=== PATIENT | female | born 1965 | race Caucasian/White ===

== ENCOUNTER 2023-01-14 13:52 | Outpatient (OUT) | payer MEDICARE, SELFPAY ==
--- NOTE | 2023-01-14 14:01 | XR_ITS ---
The [address] [address] Patient Name: TIERRA MCCLOUD MRN: [id number] date: 1965 Sex: F Assigned Patient Location: [facility] Current Patient Location: [facility] Accession/Order Number: [id number] Exam Date: 01/14/2023 14:16 Report Date: 01/14/2023 14:46 At the request of: MICHELLE EDUARDO Procedure: XR chest 2V EXAM: XR chest 2V HISTORY: Abnormal Chest XRAY R93.89 COMPARISON: None. TECHNIQUE: PA and lateral views of the chest. FINDINGS: The cardiomediastinal silhouette is normal. No focal consolidation is identified. There is no pneumothorax. No pleural effusion is noted. The osseous structures are intact. XR/XR chest 2V IMPRESSION: No acute cardiopulmonary process. Electronically authenticated by: HIGINIO MELCHOR Date: 01/14/2023 14:46
== END 2023-01-14 13:53 | disposition home or self-care (01) ==
PROVIDERS: Visit Provider Internal Medicine Sleep Medicine
DX: R93.89 Abnormal findings on diagnostic imaging of other specified body structures (principal)
CPT/HCPCS: 71046

== ENCOUNTER 2023-09-28 14:09 | Outpatient (OUT) | payer MEDICARE, SELFPAY ==
[2023-09-28 14:27] LABS: Hematocrit 39.7 % (36.0-48.0); Hemoglobin 12.9 g/dL (12.0-16.0); Mean Corpuscular HGB Conc 32.5 g/dL (29.9-35.2); Mean Corpuscular Hemoglobin 31.9 pg (26.7-34.0); Mean Corpuscular Volume 98.3 fL (81.0-99.0); Mean Platelet Volume 10.6 fL (9.5-13.5); Platelet Count 249 10^3/uL (150-450); Red Blood Count 4.04 10^6/uL (4.20-5.40); Red Cell Distribution Width 13.2 % (11.0-15.0); White Blood Count 7.9 10^3/uL (4.0-11.0)
[2023-09-28 14:29] LABS: Bilirubin Urine NEGATIVE (NEGATIVE); Blood Urine NEGATIVE (NEGATIVE); Clarity Urine CLEAR (CLEAR); Color Urine LT. YELLOW (YELLOW); Glucose Urine UA NEGATIVE (NEGATIVE); Ketones Urine NEGATIVE (NEGATIVE); Leukocyte Esterase Urine NEGATIVE (NEGATIVE); Nitrite Urine NEGATIVE (NEGATIVE); Protein Urine NEGATIVE (NEG/TRACE); Specific Gravity Urine 1.015 (1.005-1.025); Urobilinogen Urine 0.2 EU/dL (0.2-1.0)
[2023-09-28 14:35] LABS: Bacteria Urine NONE SEEN #/HPF (NONE SEEN); Cast Seen? NONE SEEN #/LPF (NONE SEEN); Crystals Seen? None Seen #/HPF (None Seen); Mucus Urine NONE SEEN (NONE SEEN); RBC Urine NONE SEEN #/HPF (0-2); Squamous Epithelial Cell Urine RARE #/LPF (NONE/RARE); WBC Urine NONE SEEN #/HPF (NONE SEEN)
[2023-09-28 14:36] LABS: Creatinine Urine Random 79.58 mg/dL (20.00-300.00); Total Protein Urine Random 16.3 mg/dL (<=11.9)
[2023-09-28 14:48] LABS: Albumin Level 3.5 g/dL (3.4-5.0); Anion Gap 12.3; BUN Creatinine Ratio 18.3; Calcium 8.6 mg/dL (8.5-10.1); Carbon Dioxide 26.1 mmol/L (21.0-32.0); Chloride 106 mmol/L (98-107); Estimated GFR (African America 31 (>=60); Estimated GFR (Non-African Ame 26 (>=60); Glucose 103 mg/dL (74-106); Magnesium 1.5 mg/dL (1.8-2.4); Phosphorus 3.4 mg/dL (2.6-4.7); Potassium 4.4 mmol/L (3.5-5.1); Sodium 140 mmol/L (136-145)
[2023-09-29 10:10] LABS: PTH, Intact 85 pg/mL (15-65)
== END 2023-09-28 14:10 | disposition home or self-care (01) ==
LOC: LAB 14:11
PROVIDERS: Visit Provider Internal Medicine
DX: I12.9 Hypertensive chronic kidney disease with stage 1 through stage 4 chronic kidney disease, or unspecified chronic kidney disease (principal); N18.4 Chronic kidney disease, stage 4 (severe); E55.9 Vitamin D deficiency, unspecified; N25.81 Secondary hyperparathyroidism of renal origin; M10.9 Gout, unspecified
CPT/HCPCS: 36415; 80069; 81001; 82306; 82570; 83735; 83970; 84156; 84550; 85027

== ENCOUNTER 2024-02-11 12:29 | Outpatient (OUT) | payer MEDICARE, SELFPAY ==
[2024-02-11 12:51] LABS: Hematocrit 40.2 % (36.0-48.0); Hemoglobin 13.6 g/dL (12.0-16.0); Mean Corpuscular HGB Conc 33.8 g/dL (29.9-35.2); Mean Corpuscular Hemoglobin 32.2 pg (26.7-34.0); Mean Platelet Volume 10.5 fL (9.5-13.5); Platelet Count 249 10^3/uL (150-450); Red Blood Count 4.23 10^6/uL (4.20-5.40); Red Cell Distribution Width 13.5 % (11.0-15.0); White Blood Count 8.3 10^3/uL (4.0-11.0)
[2024-02-11 12:53] LABS: Bilirubin Urine SMALL (NEGATIVE); Blood Urine TRACE-I (NEGATIVE); Clarity Urine SL CLOUDY (CLEAR); Color Urine YELLOW (YELLOW); Glucose Urine UA NEGATIVE (NEGATIVE); Ketones Urine NEGATIVE (NEGATIVE); Leukocyte Esterase Urine NEGATIVE (NEGATIVE); Nitrite Urine NEGATIVE (NEGATIVE); Protein Urine NEGATIVE (NEG/TRACE); Specific Gravity Urine 1.025 (1.005-1.025)
[2024-02-11 13:01] LABS: Bacteria Urine MODERATE #/HPF (NONE SEEN); Cast Seen? SEEN #/LPF (NONE SEEN); Crystals Seen? None Seen #/HPF (None Seen); Fine Granular Casts Urine RARE; Hyaline Casts Urine FEW; Mucus Urine SMALL (NONE SEEN); Squamous Epithelial Cell Urine MODERATE #/LPF (NONE/RARE); Transitional Epi Cells Urine RARE #/LPF (NONE SEEN)
[2024-02-11 13:17] LABS: Creatinine Urine Random 265.89 mg/dL (20.00-300.00); Protein Creatinine Ratio Urine 0.14; Total Protein Urine Random 37.3 mg/dL (<=11.9)
[2024-02-11 15:19] LABS: Albumin Level 3.6 g/dL (3.4-5.0); Anion Gap 12.7; BUN Creatinine Ratio 15.6; Calcium 9.1 mg/dL (8.5-10.1); Carbon Dioxide 25.5 mmol/L (21.0-32.0); Chloride 103 mmol/L (98-107); Estimated GFR (African America 25 (>=60); Estimated GFR (Non-African Ame 20 (>=60); Glucose 100 mg/dL (74-106); Magnesium 1.5 mg/dL (1.8-2.4); Phosphorus 3.3 mg/dL (2.6-4.7); Potassium 4.2 mmol/L (3.5-5.1); Sodium 137 mmol/L (136-145); Uric Acid 6.4 mg/dL (2.6-6.0)
[2024-02-12 10:11] LABS: PTH, Intact 151 pg/mL (15-65)
== END 2024-02-11 12:30 | disposition home or self-care (01) ==
LOC: LAB 12:31
PROVIDERS: Visit Provider Internal Medicine
DX: I12.9 Hypertensive chronic kidney disease with stage 1 through stage 4 chronic kidney disease, or unspecified chronic kidney disease (principal); N18.4 Chronic kidney disease, stage 4 (severe); E55.9 Vitamin D deficiency, unspecified; M10.9 Gout, unspecified; N25.81 Secondary hyperparathyroidism of renal origin
CPT/HCPCS: 36415; 80069; 81001; 82306; 82570; 83735; 83970; 84156; 84550; 85027

== ENCOUNTER 2024-03-03 14:49 | Outpatient (OUT) | payer MEDICARE, SELFPAY ==
--- NOTE | 2024-03-03 15:00 | XR_ITS ---
The [address] [address] Patient Name: TIERRA MCCLOUD MRN: [id number] date: 1965 Sex: F Assigned Patient Location: [facility] Current Patient Location: [facility] Accession/Order Number: [id number] Exam Date: 03/03/2024 15:01 Report Date: 03/03/2024 15:26 At the request of: MICHELLE EDUARDO Procedure: XR chest 2V EXAM: XR chest 2V HISTORY: Chronic Obstructive Pulmonary Disease J44.9 COMPARISON: 01/14/2023 TECHNIQUE: Upright PA and lateral chest x-ray FINDINGS: The heart is not enlarged and the vasculature is not distended. A small amount of pleural and parenchymal scarring is seen at the left lung base, which is essentially unchanged. No acute infiltrate, effusion or pneumothorax is identified. Degenerative changes are seen in the spine. Surgical clips are seen in the upper abdomen. XR/XR chest 2V IMPRESSION: No acute infiltrate or evidence of cardiac decompensation. Mild chronic changes are noted. The overall appearance is unchanged. Electronically authenticated by: JOANA CLAY Date: 03/03/2024 15:26
== END 2024-03-03 14:50 | disposition home or self-care (01) ==
LOC: RAD 14:50
PROVIDERS: Visit Provider Internal Medicine Sleep Medicine
DX: J44.9 Chronic obstructive pulmonary disease, unspecified (principal)
CPT/HCPCS: 71046

== ENCOUNTER 2024-08-23 10:26 | Outpatient (OUT) | payer MEDICARE, SELFPAY ==
--- OUTSIDE RECORDS SUMMARY | 2024-08-23 10:35 | XMS_ITS | CCD ---
Author Organization [facility] Care Team Providers Care Wrapper Operator Name Role Phone Latosha Bryan Unavailable AlejandroCarissa Unavailable Carito, Sohail Unavailable CARITO, SOHAIL Attending Unavailable MISC, DR QUIROGA Primary Care Unavailable CARITO, SOHAIL Admitting Unavailable CARITO, SOHAIL Consulting Unavailable MISC, DR QUIROGA Admitting Unavailable MISC, DR QUIROGA Primary Care Unavailable MISC, DR QUIROGA Consulting Unavailable MISC, DR QUIROGA Attending Unavailable CARITO, SOHAIL Consulting Unavailable CARITO, SOHAIL Attending Unavailable SHAYY COWAN Primary Care Unavailable CARITO, SOHAIL Admitting Unavailable Khari, MSN, BUS PERSON-OCEANOGRAPHY TEACHER Yolanda Whitehead. Attending Quoc Lucia, MSN, BUS PERSON-OCEANOGRAPHY TEACHER Yolanda Whitehead. Attending Quoc Lucia, MSN, BUS PERSON-OCEANOGRAPHY TEACHER Yolanda Whitehead. Attending Quoc Lucia, MSN, BUS PERSON-OCEANOGRAPHY TEACHER Yolanda L. Attending Quoc Lucia, MSN, BUS PERSON-OCEANOGRAPHY TEACHER Yolanda Whitehead. Attending Quoc Lucia, MSN, BUS PERSON-OCEANOGRAPHY TEACHER Yolanda Whitehead. Attending Quoc Lucia, MSN, BUS PERSON-OCEANOGRAPHY TEACHER Yolanda L. Attending Quoc Lucia, MSN, BUS PERSON-OCEANOGRAPHY TEACHER Yolanda Whitehead. Attending Quoc Lucia, MSN, BUS PERSON-OCEANOGRAPHY TEACHER Yolanda Whitehead. Attending U chetan Allergies Allergy Classification Reported Allergen(s) Allergy Type Date of Onset Reaction(s) Facility (11 sources) Albuterol Drug Allergy 4 Unknown, Unknown Reaction [facility] (12 sources) gabapentin; Translations: [gabapentin] Drug Allergy 4 Unknown, Swelling of Lip/Tongue/Thr oat [facility] (9 sources) NSAIDs; Translations: [NSAIDs] Propensity to adverse reactions Unknown [facility] (7 sources) Fluarix Drug allergy Unknown [facility] Other (3 sources) NSAIDS (Non-Steroidal Anti-Inflamma Allergy to substance Unknown Reaction [facility] (1 source) Albuterol; Translations: [Ventolin HFA] Drug Allergy [facility] (1 source) flu vaccines; Translations: [flu vaccines] Propensity to adverse reactions (disorder) [facility] Medications Current Medications Medication Drug Class(es) Dates Sig (Normalized) Sig (Original) acetaminophen 325 mg / oxyCODONE hydrochloride 5 mg oral tablet (2 sources) Opioid Agonist Start: 02-15-2024 take 1 tablet by mouth every six hours Oxycodone-Acetami nophen Active 1 TAB PO Every 6 hours February 15, 2024 12:00am albuterol 0.83 mg/ml inhalation solution (20 sources) beta2-Adrenergic Agonist Start: 09-29-2023 Albuterol Sulfate Active 2.5 MG INHALATION every 6 to 8 hours September 29, 2023 12:00am Start: 09-29-2023 take 1 puff(s) by in halation every six hours Albuterol Sulfate (Ventolin Hfa) 90 mcg/actuation HFA aerosol inhaler Active 2 PUFF INHALATION Every 6 hours September 29, 2023 12:00am Albuterol Sulfat e (2.5 MG/3ML) 0.083% INHALE 1 VIAL VIA NEBULIZER EVERY 4 HOURS Inhalation Active take 2 puff(s) by mo ut four times daily as needed Ventolin HFA 108 (90 Base) MCG/ACT INHALE 2 PUFFS BY MOUTH 4 TIMES A DAY NEEDED Inhalation for 25 Active allopurinol 300 mg oral tablet (15 sources) Xanthine Oxidase Inhibitor Start: 09-29-2023 End: 09-29-2023 take 300 mg by mouth once daily Allopurinol Active 300 MG PO Daily September 29, 2023 3:30pm Allopurinol 300 MG TAKE 1 TABLET BY MOUTH EVERY DAY FOR 90 DAYS for 90 Active amLODIPine 10 mg oral tablet (11 sources) Dihydropyridine Calcium Channel Subhash Start: 09-29-2023 take 1 tablet by mouth once daily Amlodipine Active 1 TAB PO Daily September 29, 2023 12:00am FreeTextSig: TAKE 1 TABLET BY MOUTH EVERY DAY Oral; Note: Source Status: Taking; Provider: Carito Sauceda ( ) take 1 tablet by mouth once noemy y amLODIPine Besylate 10 MG TAKE 1 TABLET BY MOUTH EVERY DAY Oral Active apixaban 5 mg oral tablet (4 sources) Factor Xa Inhibitor Start: 09-29-2023 take 1 tablet by mouth twice daily Apixaban Active 1 TAB PO Twice daily September 29, 2023 12:00am FreeTextSi tablet Orally Twice a day; Note: Source Status: Taking; Provider: Carito Sauceda ( ) take 1 tablet by mouth every twe lve hours Eliquis 5 MG 1 tablet Orally Twice a day Active ascorbic acid 500 mg oral capsule (3 sources) Vitamin C Start: 09-29-2023 Ascorbic Acid (Vitamin C) Active CAP PO September 29, 2023 12:00am FreeTextSig: Orally; Note: Source Status: Taking; Provider: Carito Sauceda ( ) aspirin 81 mg chewable tablet (11 sources) Platelet Aggregation Inhibitor, Nonsteroidal Anti-inflammatory Drug Start: 09-29-2023 take 81 mg by mouth once daily Aspirin Active 81 MG PO Daily September 29, 2023 12:00am Start: 08-05-2016 take 1 tablet by sagrario th every twenty-four hours Aspirin 81 MG 1 tablet Orally Once a day Jul, Active 120 actuat budesonide 0.16 mg/actuat / formoterol fumarate 0.0045 mg/actuat metered dose inhaler (8 sources) Corticosteroid, beta2-Adrenergic Agonist Start: 03-07-2024 End: 03-07-2024 take 1 puff(s) by inhalation twice daily Budesonide-Formoterol (Symbicort) 160-4.5 mcg/actuation HFA aerosol inhaler Active 2 PUFF INHALATION Twice daily 07 28March 07, 2024 2:07pm take 2 puff(s) by inhalation twi ce daily Symbicort 160-4.5 MCG/ACT 2 puffs Inhalation Twice a day Active 24 hr buPROPion hydrochloride 300 mg extended release oral tablet (6 sources) Aminoketone Start: 03-07-2024 take 300 mg by mouth once daily Bupropion Hcl Active 300 MG PO Daily March 07, 2024 1:17pm Start: 02-15-2024 End: 03-07-2024 Bupropion Hcl Discontinued M G PO February 15, 2024 12:00am March 07, 2024 1:19pm Start: 02-15-2024 Bupropion Hcl Active MG PO February 15, 2024 12:00am Start: 09-29-2023 End: 02-15-2024 take 1 tablet by mouth once daily in the morning Bupropion Hcl (Wellbutrin Xl) 150 mg tablet extended release 24 hr Discontinued 150 MG PO Every morning September 29, 2023 12:00am February 15, 2024 3:23pm cholecalciferol 0.05 mg oral capsule (3 sources) Vitamin D Start: 09-29-2023 take 1 capsule by mouth once daily Cholecalciferol (Vitamin D3) Active 1 CAP PO Daily September 29, 2023 12:00am FreeTextSi capsule Orally Once a day; Note: Source Status: Taking; Provider: Carito Sauceda ( ) citalopram 20 mg oral tablet (5 sources) Serotonin Reuptake Inhibitor take 1 tablet by mouth every twenty-four hours Citalopram Hydrobromide 20 MG 1 Tablet Oral Daily for 30 Active DULoxetine 30 mg delayed release oral capsule (2 sources) Serotonin and Norepinephrine Reuptake Inhibitor take 1 capsule by mouth every twenty-four hours DULoxetine HCl 30 MG 1 capsule Orally Once a day Active hydroCHLOROthiazide 25 mg / triamterene 37.5 mg oral tablet (11 sources) Potassium-sparing Diuretic, Thiazide Diuretic Start: 09-29-2023 take 1 tablet by mouth once daily Triamterene-Hydroch lorothiazid Active 1 TAB PO Daily September 29, 2023 12:00am Start: 08-05-2016 take 1 tablet by sagrario th every twenty-four hours Triamterene-HCTZ 37.5-25 MG 1 tablet in the morning Orally Once a day Jul, Active lisinopril 5 mg oral tablet (12 sources) Angiotensin Converting Enzyme Inhibitor Start: 09-29-2023 End: 03-07-2024 take 1 tablet by mouth once daily for hypertension Lisinopril Active 5 MG PO Daily March 07, 2024 1:17pm FreeTextSig: TAKE 1 TABLET BY MOUTH EVERY DAY FOR HYPERTENSION Oral; Note: Source Status: Taking; Provider: Carito Sauceda ( ) take 1 tablet by sagrario th once daily for hypertension Lisinopril 5 MG TAKE 1 TABLET BY MOUTH EVERY DAY FOR HYPERTENSION Oral Active loratadine 10 mg oral tablet (11 sources) Start: 09-29-2023 take 1 tablet by mouth once daily Loratadine Active 1 TAB PO Daily September 29, 2023 12:00am FreeTextSi tablet Orally Once a day; Note: Source Status: Taking; Provider: Carito Sauceda ( ) take 1 tablet by mouth once noemy y Loratadine 10 MG 1 tablet Orally Once a day Active magnesium oxide 400 mg oral tablet (2 sources) Start: 02-15-2024 take 400 mg by mouth once daily Magnesium Oxide Active 400 MG PO Daily February 15, 2024 12:00am meclizine hydrochloride 25 mg oral tablet (12 sources) Antiemetic Start: 09-29-2023 End: 03-07-2024 take 25 mg by mouth twice daily Meclizine Active 25 MG PO Twice daily March 07, 2024 1:18pm take 1 tablet by sagrario th twice daily for dizziness Meclizine HCl 25 MG TAKE 1 TABLET BY MOUTH TWICE A DAY FOR DIZZINESS Oral for 30 Active montelukast 10 mg oral tablet (11 sources) Leukotriene Receptor Antagonist Start: 09-29-2023 take 1 tablet by mouth once daily Montelukast Active 1 TAB PO Daily September 29, 2023 12:00am FreeTextSi tablet Orally Once a day; Note: Source Status: Taking; Provider: Carito Sauceda ( ) take 1 tablet by sagrario th every twenty-four hours Montelukast Sodium 10 MG 1 tablet Orally Once a day Active omeprazole 40 mg delayed release oral capsule (13 sources) Proton Pump Inhibitor Start: 02-15-2024 take 40 mg by mouth once daily Omeprazole Active 40 MG PO Daily February 15, 2024 3:24pm Start: 09-29-2023 End: 02-15-2024 take 1 capsule by mouth twice daily at lunch Omeprazole Discontinued MG PO September 29, 2023 12:00am February 15, 2024 3:24pm FreeTextSi capsule Oral TWICE A DAY; Note: Source Status: Taking; Provider: CAMRYN LUCAS take 1 capsule by mo [facility] every twelve hours Omeprazole 40 mg 1 capsule Oral TWICE A DAY Active ondansetron 4 mg oral tablet (11 sources) Serotonin-3 Receptor Antagonist Start: 09-29-2023 take 4 mg by mouth every six hours Ondansetron Hcl Active 4 MG PO Every 6 hours September 29, 2023 12:00am take 1 tablet by sagrario every six hours as needed for nausea Ondansetron HCl 4 MG TAKE 1 TABLET BY MO [facility] EVERY 6 HOURS NEEDED FOR NAUSEA/VOMITING Oral for 6 Active pravastatin sodium 10 mg oral tablet (2 sources) HMG-CoA Reductase Inhibitor Start: 02-15-2024 take 10 mg by mouth once daily Pravastatin Active 10 MG PO Daily February 15, 2024 12:00am rOPINIRole 1 mg oral tablet (13 sources) Nonergot Dopamine Agonist Start: 09-29-2023 End: 02-15-2024 take 1 mg by mouth once daily at bedtime Ropinirole Active 1 MG PO Daily at bedtime February 15, 2024 3:24pm take 1 tablet by sagrario once daily at bedtime rOPINIRole HCl 1 MG TAKE 1 TABLET BY SAGRARIO TH AT BEDTIME FOR RESTLESS LEGS Orally Once a day Active Super B Complex (5 sources) Super B Complex Active theophylline 300 mg extended release oral tablet (5 sources) Methylxanthine take 1 tablet by mouth twice daily Theophylline ER 300 MG TAKE 1 TABLET BY MOUTH 2 TIMES A DAY Oral Active Trelegy Ellipta 100-62.5-25 MCG/INH (2 sources) Start: take 1 puff(s) by inhalation once daily Trelegy Ellipta 100-62.5-25 MCG/INH 1 puff Inhalation Once a day for 30 days Feb, Active Vitamin C 500 MG (8 sources) Vitamin C 500 MG Orally Active Vitamin D 2000 UNIT (8 sources) take 1 capsule by mouth once daily Vitamin D 2000 UNIT 1 capsule Orally Once a day Active Completed/Discontinued Medications Medication Drug Class(es) Dates Sig (Normalized) Sig (Original) Fluticasone-Umecli din-Vilanter (3 sources) Anticholinergic, Corticosteroid, beta2-Adrenergic Agonist Start: 09-29-2023 End: 03-07-2024 Fluticasone-Umeclidi n-Vilanter (Trelegy Ellipta) 100-62.5-25 mcg blister with device Discontinued 1 INH INHALATION Daily September 29, 2023 12:00am March 07, 2024 2:03pm Start: 09-29-2023 Fluticasone-Um eclidin-Vilanter (Trelegy Ellipta) 100-62.5-25 mcg blister with device Active 1 INH INHALATION Daily September 29, 2023 12:00am hyaluronate (20 sources) Start: 02-11-2017 Supartz Jan Start: 02-04-2017 Supartz Jan Start: 01-28-2017 Supartz Jan Start: 01-21-2017 Supartz Dec SUPARTZ FX SODIUM HYALURONATE (12 sources) Start: 01-07-2017 SUPARTZ FX SOD IUM HYALURONATE Dec, 25 Triamcinolone (12 sources) Corticosteroid Start: 08-05-2016 Kenalog -40 mg Jul, 3 mL Problems Active Problems Problem Classification Problem Date Documented Date Episodic/Chronic Anxiety disorders (7 sources) Anxiety; Translations: [Anxiety disorder, unspecified] Onset: 1 Resolved: 1 Chronic Asthma (2 sources) Asthma-chronic obstructive pulmonary disease overlap syndrome; Translations: [Asthma-chronic obstructive pulmonary disease overlap syndrome] 03-03-2024 Chronic Chronic kidney disease (20 sources) Chronic kidney disease stage 3; Translations: [Chronic kidney disease, stage 3 (moderate)] Onset: 3 Chronic Chronic kidney disease (5 sources) Chronic kidney disease; Translations: [Chronic kidney disease, stage III (moderate)] Onset: 2 Resolved: 2 Chronic obstructive pulmonary disease and bronchiectasis (16 sources) Chronic obstructive lung disease; Translations: [Chronic obstructive pulmonary disease, unspecified] Onset: 1 Resolved: 2 Chronic Diabetes mellitus without complication (5 sources) Hyperglycemia, unspecified; Translations: [HYPERGLYCEMIA UNSPECIFIED] Onset: 3 Episodic Gout and other crystal arthropathies (14 sources) Acute gout; Translations: [Gout, unspecified] Onset: 3 Chronic Hypertension with complications and secondary hypertension (20 sources) Hypertensive renal disease; Translations: [Hypertensive chronic kidney disease with stage 1 through stage 4 chronic kidney disease, or unspecified chronic kidney disease] Onset: 2 Resolved: 2 Chronic Nutritional deficiencies (19 sources) Vitamin D deficiency; Translations: [Vitamin D deficiency, unspecified] Onset: 2 Resolved: 2 Chronic Osteoarthritis (6 sources) Osteoarthritis of knee; Translations: [Unilateral primary osteoarthritis, right knee] Chronic Other diseases of kidney and ureters (11 sources) Secondary hyperparathyroidism; Translations: [Secondary hyperparathyroidism of renal origin] 09-29-2023 Chronic Other diseases of kidney and ureters (8 sources) Secondary hyperparathyroidism of renal origin; Translations: [Secondary hyperparathyroidism (of renal origin)] Onset: 2 Resolved: 2 Chronic Other non-traumatic joint disorders (6 sources) Arthralgia of the lower leg; Translations: [Pain in right knee] Episodic Other nutritional; endocrine; and metabolic disorders (1 source) Morbid (severe) obesity due to excess calories; Translations: [MORBID SEVERE OBES D/T EXCESS ALFREDA] Onset: 3 Chronic Other nutritional; endocrine; and metabolic disorders (1 source) Body mass index (BMI) 40.0-44.9, adult; Translations: [BODY MASS INDEX BMI 40.0-44.9 ADULT] Onset: 3 Chronic Other nutritional; endocrine; and metabolic disorders (2 sources) Hypomagnesemia; Translations: [Hypomagnesemia] 02-15-2024 Chronic Other nutritional; endocrine; and metabolic disorders (2 sources) Hypomagnesemia; Translations: [Disorders of magnesium metabolism] 02-15-2024 Chronic Other screening for suspected conditions (not mental disorders or infectious disease) (10 sources) Imaging of thorax abnormal; Translations: [Abnormal findings on diagnostic imaging of other specified body structures] Onset: 1 Resolved: 2 Chronic Other screening for suspected conditions (not mental disorders or infectious disease) (1 source) Encounter for screening for diabetes mellitus; Translations: [ENCOUNTER FOR SCREENING FOR DM] Onset: 3 Episodic Substance-related disorders (13 sources) Smoker; Translations: [Nicotine dependence, unspecified, uncomplicated] Onset: 2 Resolved: 2 Chronic Unclassified (1 source) CHRN KIDNEY DISEASE STG 3 UNSP; Translations: [CHRN KIDNEY DISEASE STG 3 UNSP] Onset: 3 Past or Other Problems Problem Classification Problem Date Documented Date Episodic/Chronic Other nutritional; endocrine; and metabolic disorders (2 sources) Hyperuricemia without signs of inflammatory arthritis and tophaceous disease; Translations: [HU W/O SIGNS IA AND TOPHACEOUS DZ] Onset: 10-10-2021 Resolved: 10-10-2021 Episodic Screening and history of mental health and substance abuse codes (1 source) Personal history of nicotine dependence; Translations: [Personal history of tobacco use Z87.891] Onset: 03-28-2021 Resolved: 03-28-2021 Episodic Results Test Name Value Interpretation Reference Range Facil ity Ambulatory Visit Summaryon 1 08-08-2023 Ambulatory Visit Summary Ambulatory Visit Summary IMANI MCCLOUD :1965 Visit Date:06/07/2024 Ambulatory Visit Instructions Your Diagnosis Fibromyalgia Benign hypertension with chronic kidney disease, stage IV Chronic kidney disease (CKD), stage IV (severe) Hyperlipidemia Class 2 obesity due to excess calories in adult BMI 38.0-38.9,adult Lipid screening Medication management Immunization due Your Care Team Attending Physician - Khari MISHRA, CINDY-Yolanda RODRIGUEZ Primary Care Physician - Khari MISHRA, CINDY-Yolanda RODRIGUEZ This Is Your Medications List Misc Prescription (Nebulizer tubing and mouthpiece) acetaminophen-oxycod one (Percocet 5 mg-325 mg oral tablet) albuterol (Albuterol (Eqv-Proventil HFA) 90 mcg/inh inhalation aerosol) Contact prescribing physician if questions or concerns APAP/butalbital/caff eine (APAP/butalbital/caf feine 325 mg-50 mg-40 mg oral capsule) Misc Prescription (Permanent Handicap Paking Placcard (5 year)) albuterol (albuterol 0.083% Inh Nikki 3 mL) allopurinol (allopurinol 300 mg Tab) apixaban (Eliquis 5 mg oral tablet) aspirin buPROPion (buPROPion 300 mg/24 hours ER Tab) budesonide-formotero l (Symbicort 160/4.5 inhalation aerosol with adapter) cetirizine (cetirizine 10 mg oral capsule) cholecalciferol (cholecalciferol 2000 intl units oral tablet (Vitamin D3)) hydrochlorothiazide- triamterene (hydrochlorothiazide -triamterene 25 mg-37.5 mg Tab) lisinopril (lisinopril 5 mg Tab) magnesium oxide (magnesium oxide 400 mg Tab) meclizine (meclizine 25 mg Tab) omeprazole (omeprazole 40 mg Cap-DR) ondansetron (ondansetron 4 mg Tab) pravastatin (pravastatin 10 mg Tab) promethazine (promethazine 25 mg Tab) ropinirole (ropinirole 1 mg Tab) theophylline (theophylline 300 mg ER Tab) Procedures Performed right ultrasound guided core breast biopsy (2017), Cardiac catheterisation (05/2014), Endometrial ablation (2006), section (1991), Laparoscopic cholecystectomy (1986). Discharge Vitals Temperature (Temporal Artery) 36.3 ???C Heart Rate (Peripheral) 80 Respiratory Rate 18 Blood Pressure 128/88 Height 163 cm Height 64 in Weight 102.6 kg Weight 226.194 lb BMI 38.62 What to do next Scheduled Follow-Up Appointments Thursday 1:00 PM EDT With: Khari MISHRA, CINDY-Yolanda RODRIGUEZ Where: [address] [address]- You Need to Schedule the Following Appointments Follow Up with nurse visit When: Within 1 week Comments: fasting labs Where: Follow Up with Khari MISHRA, CINDY-Yolanda RODRIGUEZ When: In 3 months Comments: chronic care Where: [address] [place] [id number] You Need to Complete the Following CBC w/ Auto Diff, Blood, Routine collect, 06/07/24, Order for future visit, Lab Collect, Fibromyalgia Benign hypertension with chronic kidney disease, stage IV Chronic kidney disease (CKD), stage IV (severe) Hyperlipidemia Class 2 obesity due to excess calories... Comprehensive Metabolic Panel, Blood, Routine collect, 06/07/24, Order for future visit, Lab Collect, Fibromyalgia Benign hypertension with chronic kidney disease, stage IV Chronic kidney disease (CKD), stage IV (severe) Hyperlipidemia Class 2 obesity due to excess calories... Lipid Panel, Blood, Routine collect, 06/07/24, Order for future visit, Lab Collect, Fibromyalgia Benign hypertension with chronic kidney disease, stage IV Chronic kidney disease (CKD), stage IV (severe) Hyperlipidemia Class 2 obesity due to excess calories... Medications What How Much When Instructions Changed acetaminophen-oxycod one (Percocet 5 mg-325 mg oral tablet) 1 Tablets By Mouth Every 6 hours Duration: 30 Days DX M79.7 Fibromyalgia Pickup at [facility]/pharmacy #[id number] Unchanged albuterol (Albuterol (Eqv-Proventil HFA) 90 mcg/ inh inhalation aerosol) 2 Puffs Inhalation Every 4 hours Pickup at [facility]/pharmacy #[id number] Unchanged Misc Prescription (Nebulizer tubing and mouthpiece) See instructions use as directed. Dx: COPD Printed Prescription Unchanged albuterol (albuterol 0.083% Inh Nikki 3 mL) 3 Milliliter Nebulized inhalation (aerosol) Every 6 hours Contact prescribing physician if questions or concerns Unchanged allopurinol (allopurinol 300 mg Tab) 1 Tablets By Mouth Every day per specialist Contact prescribing physician if questions or concerns Unchanged APAP/ butalbital/ caffeine (APAP/ butalbital/ caffeine 325 mg-50 mg-40 mg oral capsule) 2 Capsules By Mouth 4 times a day as needed for as needed for headache Contact prescribing physician if questions or concerns Unchanged apixaban (Eliquis 5 mg oral tablet) 1 Tablets By Mouth 2 times a day Contact prescribing physician if questions or concerns Unchanged aspirin 81 Milligram By Mouth Every day Contact prescribing physician if questions or concerns Unchanged budesonide-formotero l (Symbicort 160/ 4.5 inhalation aerosol (more content not included)... Normal [facility] Family Medicine Office/Clini c Noteon 06-07-2024 Family Medicine Office/Clinic Note Family Medicine Office/Clinic Note Chief Complaint The patient reports fatigue, pain management concerns, and due medication and blood work evaluations. HPI Staff Patient is here for follow up on hypertension. CKD How often are you checking your blood pressure? Not checking What are your average readings? Are you compliant with your diet? yes Do you exercise? no Are you compliant with your medications? yes Are you having difficulty affording your medications? no Do you have side effects from the medication? no Do you have any of the following symptoms? Chest Pain? no Palpitations? no LARIOS/SOB? no Headache? no Peripheral Edema? yes Light Headedness? no History of Present Illness 58 Years old Female here for 3 month chronic care HPI staff / Chief Complaint confirmed with the patient Social: The patient is NOT ; The patient is NOT currently working; DISABLILTY The patient has 2 child(maximiliano) 2 grandchild(maximiliano) Screening: Colon Cancer screening: declines with a _ year f/u recommended; this patient does NOT have family history of colon cancer Breast cancer screenin12/31/2022 ; this patient does NOT have a family history of breast cancer Pap smear: awhile ago DEXA: NA Labs: 03/2023 Smokers/ former smokers: quit 03/[address]: _ List of Providers: Funeral Car Chauffeur: Dr Murphy LABS Cr/eGFR: eGFR: 24 mL/min/1.73 m2 Low (04/24/23 09:34:00) Creatinine: 2.3 mg/dL High (04/24/23 09:34:00) A1c: No qualifying data available. TSH: No qualifying data available. Vit D: No qualifying data available. LDL: LDL Direct: 123 mg/dL (04/24/23 09:34:00) Lipids: Chol: 182 mg/dL (04/24/23 09:34:00) HDL: 40 mg/dL (04/24/23 09:34:00) LDL Direct: 123 mg/dL (04/24/23 09:34:00) Tri mg/dL High (04/24/23 09:34:00) VLDL: 37 mg/dL (04/24/23 09:34:00) The patient has a history of fibromyalgia, which exacerbates pain in the ankles, shoulders, and back, particularly in cold weather. She manages this condition with Percocet, noting effective pain relief, but expresses concern about frequent prescription refills every 8-10 days due to the limited quantity. The patient also mentions her faculty research assistant has started her on 400 mg magnesium due to low levels and she regularly monitors kidney functions through her kidney specialist. The patient has benign hypertension with chronic kidney disease, stage IV, but reports stable blood pressure readings during visits. Additionally, the patient requires a cholesterol panel and metabolic panel for kidney function evaluation as part of routine blood work. She discusses swelling in the legs, frequent in cold weather but tends to subside by morning. Management includes medication adherence, with discussions on additional prescriptions for albuterol solution for a nebulizer. There is a noted history of class 2 obesity and hyperlipidemia, for which routine blood work is maintained. Review of Systems PHQ Score Initial Depression Screen Score: 1 SCORE - Constitutional: Reports fatigue; denies recent weight change. - Musculoskeletal: Reports pain in ankles, shoulders, and back, with worsened symptoms during cold weather. - Cardiovascular: Denies chest pain. - Respiratory: Denies shortness of breath. - Dermatological: Denies skin changes. - Neurological: Denies headaches separate from fibromyalgia management. Physical Exam Vitals & Measurements T: 36.3 ???C(Temporal Artery) HR: 80(Peripheral) RR: 18 BP: 128/88 SpO2: 98% HT: 64 in HT: 163 cm WT: 102.6 kg WT: 226.194 lb BMI: 38.62 Constitutional: Well-groomed, well-nourished, no signs of acute distress. HEENT: Head normocephalic, sclera is clear. Cardiothoracic: Heart rate and rhythm is regular strong, normal S1 and S2. No murmurs, rubs, or bruits auscultated. No peripheral edema, peripheral pulses +2 Respiratory: Lung sounds are clear throughout, respirations regular nonlabored. Abdomen/GI: Abdomen soft nondistended. Musculoskeletal: Gait is steady, full range of motion. Integument: No rashes or lesions noted to the exposed skin. Psychiatric: Alert and oriented x 3, pleasant, no mood changes. Assessment/Plan 1. Fibromyalgia (M79.7: Fibromyalgia) [place]ARRS reviewed. No abnormal discrepancies found. We will proceed with prescription management. 06/05/2024 18:50:06 Currently managed with the Percocet, which she does take [id number]. Did express that the weather does affect and worsen the symptoms. At this time we will maintain current analgesic regimen, adjust dosing intervals as discussed to reduce frequency of refills. Monitor for any side effects. Consider alternative pain management strategies if necessary. Ordered: CBC w/ Auto Diff Comprehensive Metabolic Panel Lipid Panel 2. Benign hypertension with chronic kidney disease, stage IV (I12.9: Hypertensive chronic kidney disease with stage 1 through stage 4 chronic kidney disease, or unspecified chronic kidney disease) The importance of the (more content not included)... Normal [facility] Comment on above: Result Comment: Elec tronically Signed By: Khari MSN, BUS PERSON- OCEANOGRAPHY TEACHER, Yolanda Almodovar\.br\Date and Time Signed: 06/07/24 15:55 EST Erythrocyte distribution wid th Auto (RBC) [Ratio]on 02-11-2024 Erythrocyte distribution width (RBC) [Ratio] 13.5 % 11.0-15.0 [facility] Estimated glomerular filtrat ion rate (GFR) non- Americanon 02-11-2024 GFR/1.73 sq M.predicted among non-blacks MDRD (S/P/Bld) [Vol rate/Area] 20 mL/min/{1.73_m2} Low >=60 [facility] Fine granular cast count in urine sediment by microscopy (number/low power field )on 02-11-2024 Fine Granular Casts LM.LPF (Urine sed) [#/Area] RARE [facility] Hematocrit Auto (Bld) [Volum e fraction]on 02-11-2024 Hematocrit (Bld) [Volume fraction] 40.2 % 36.0-48.0 [facility] Hemoglobin [Mass/volume] in Bloodon 02-11-2024 Hemoglobin (Bld) [Mass/Vol] 13.6 g/dL 12.0-16.0 [facility] Laboratory - Chemistry and C hemistry - challengeon 02-11-2024 Albumin [Mass/Vol] 3.6 g/dL 3.4-5.0 [facility] Calcium [Mass/Vol] 9.1 mg/dL 8.5-10.1 [facility] Chloride [Moles/Vol] 103 mmol/L 98-107 [facility] CO2 [Moles/Vol] 25.5 mmol/L 21.0-32.0 [facility] Creatinine [Mass/Vol] 2.43 mg/dL High 0.55-1.02 [facility] GFR/1.73 sq M.predicted MDRD (S/P/Bld) [Vol rate/Area] 25 mL/min/{1.73_m2} Low >=60 [facility] Glucose [Mass/Vol] 100 mg/dL 74-106 [facility] Magnesium [Mass/Vol] 1.5 mg/dL Low 1.8-2.4 [facility] Potassium [Moles/Vol] 4.2 mmol/L 3.5-5.1 [facility] Sodium [Moles/Vol] 137 mmol/L 136-145 [facility] Urate [Mass/Vol] 6.4 mg/dL High 2.6-6.0 [facility] Urea nitrogen [Mass/Vol] 38.0 mg/dL High 7.0-18.0 [facility] Urea nitrogen/Creatinin e [Mass ratio] 15.6 mg/mg [facility] Bilirubin Ql (U) SMALL Abnormal NEGATIVE [facility] Glucose (U) [Mass/Vol] Negative NEGATIVE [facility] Ketones Ql (U) Negative NEGATIVE [facility] pH (U) 6.0 [pH] 5.0-9.0 [facility] Specific gravity (U) [Rel density] 1.025 1.005-1.025 [facility] Urobilinogen Qn (U) 1.0 {Shannan'U}/dL 0.2-1.0 [facility] Laboratory - Specimen inform ationon 02-11-2024 Appearance (U) SL CLOUDY CLEAR [facility] Color (U) YELLOW YELLOW [facility] Laboratory - Urinalysison Hyaline casts LM Ql (Urine sed) FEW [facility] Leukocyte esterase Test strip Ql (U) Negative NEGATIVE [facility] Mucus Ql (Urine sed) SMALL Abnormal NONE SEEN [facility] Nitrite Ql (U) Negative NEGATIVE [facility] Protein (U) [Mass/Vol] 37.3 mg/dL High <=11.9 [facility] Protein Ql (U) Negative NEG/TRACE [facility] Leukocytes [#/volume] correc roberto for nucleated erythrocytes in Blood by Automated counon 02-11-2024 WBC corrected for nucl RBC Auto (Bld) [#/Vol] 8.3 10 3/uL 4.0-11.0 [facility] MCH Auto (RBC) [Entitic mass ]on 02-11-2024 MCH (RBC) [Entitic mass] 32.2 pg 26.7-34.0 [facility] MCHC Auto (RBC) [Mass/Vol]on 02-11-2024 MCHC (RBC) [Mass/Vol] 33.8 g/dL 29.9-35.2 [facility] MCV Auto (RBC) [Entitic vol] on 02-11-2024 MCV (RBC) [Entitic vol] 95.0 fL 81.0-99.0 [facility] No Panel Informationon 02-10 25-Hydroxy Vitamin D Total 70.4 ng/mL [facility] Comment on above: <20 ng/mL Vit D defi cient20-<30 ng/mL Vit D [id number] ng/mL Vit D sufficient>100 ng/mL Potential Toxicity Parathyroid Hormone (Intact) 151 pg/mL Abnormal [facility] Comment on above: Performed at: [facility] [employer] [place] [id number] Director: Camacho Maurer PhD, Phone: [phone] Phosphorus Level 3.3 mg/dL 2.6-4.7 [facility] Urine Bacteria MODERATE #/HPF Abnormal NONE SEEN [facility] Urine Occult Blood TRACE-I NEGATIVE [facility] Urine Other Casts SEEN #/LPF Abnormal NONE SEEN [facility] Urine Other Crystals None Seen #/HPF None Seen [facility] Urine Random Creatinine 265.89 mg/dL 20.00-300.00 [facility] Urine RBC 2-5 #/HPF Abnormal 0-2 [facility] Urine Squamous Epithelial Cells MODERATE #/LPF Abnormal NONE/RARE [facility] Urine Transitional Epithelial Cells RARE #/LPF Abnormal NONE SEEN [facility] Urine WBC 5-10 #/HPF Abnormal NONE SEEN [facility] Platelet mean volume Auto (B ld) [Entitic vol]on 02-11-2024 Platelet mean volume (Bld) [Entitic vol] 10.5 fL 9.5-13.5 [facility] Platelets Auto (Bld) [#/Vol] on 02-11-2024 Platelets (Bld) [#/Vol] 249 10 3/uL 150-450 [facility] RBC Auto (Bld) [#/Vol]on RBC (Bld) [#/Vol] 4.23 10 6/uL 4.20-5.40 [facility] Serum or plasma anion gap de terminationon 02-11-2024 Anion gap [Moles/Vol] 12.7 mmol/L [facility] Urine protein/creatinine rat ioon 02-11-2024 Protein/Creatinine (U) [Ratio] 0.14 [facility] Ambulatory Visit Summaryon 0 01-12-2024 Ambulatory Visit Summary Ambulatory Visit Summary IMANI MCCLOUD :1965 Visit Date:01/12/2024 Ambulatory Visit Instructions Your Diagnosis Fibromyalgia Hypertension Chronic kidney disease (CKD), stage IV (severe) Hyperlipidemia BMI 39.0-39.9,adult Breast cancer screening by mammogram Class 2 obesity due to excess calories in adult Your Care Team Attending Physician - Khari MISHRA, CINDY-Yolanda RODRIGUEZ Primary Care Physician - Khari MISHRA, CINDY-Yolanda RODRIGUEZ. This Is Your Medications List acetaminophen-oxycod one (Percocet 5 mg-325 mg oral tablet) buPROPion (buPROPion 300 mg/24 hours ER Tab) methylPREDNISolone (Medrol 4 mg Tab) Contact prescribing physician if questions or concerns APAP/butalbital/caff eine (APAP/butalbital/caf feine 325 mg-50 mg-40 mg oral capsule) Misc Prescription (Nebulizer tubing and mouthpiece) Misc Prescription (Permanent Handicap Paking Placcard (5 year)) albuterol (Albuterol (Eqv-Proventil HFA) 90 mcg/inh inhalation aerosol) albuterol (albuterol 0.083% Inh Nikki 3 mL) allopurinol (allopurinol 300 mg Tab) apixaban (Eliquis 5 mg oral tablet) aspirin budesonide-formotero l (Symbicort 160/4.5 inhalation aerosol with adapter) cetirizine (cetirizine 10 mg oral capsule) cholecalciferol (cholecalciferol 2000 intl units oral tablet (Vitamin D3)) hydrochlorothiazide- triamterene (hydrochlorothiazide -triamterene 25 mg-37.5 mg Tab) lisinopril (lisinopril 5 mg Tab) meclizine (meclizine 25 mg Tab) omeprazole (omeprazole 40 mg Cap-DR) ondansetron (ondansetron 4 mg Tab) pravastatin (pravastatin 10 mg Tab) promethazine (promethazine 25 mg Tab) ropinirole (ropinirole 1 mg Tab) theophylline (theophylline 300 mg ER Tab) Procedures Performed right ultrasound guided core breast biopsy (2017), Cardiac catheterisation (05/2014), Endometrial ablation (2006), section (1991), Laparoscopic cholecystectomy (1986). Discharge Vitals Temperature (Temporal Artery) 36.5 ?C Heart Rate (Peripheral) 84 Respiratory Rate 16 Blood Pressure 116/88 Height 163 cm Height 64 in Weight 103.8 kg Weight 228.36 lb BMI 39.07 What to do next Scheduled Follow-Up Appointments Thursday 1:00 PM EDT With: Khari MISHRA, Yolanda LUNA Where: [facility] [address] [place] [address]- \.br\ You Need to Schedule the Following Appointments\.br\ Follow Up with Khari MISHRA, Yolanda LUNA When: In 1 month\.br\ Comments:\.br\ mood f/u\.br\ Where:\.br\ [facility] [employer]br\ [place] [address]\.br\ You Need to Complete the Following\.br\ MA Mamm Screen w/CAD if perf and 3D Jayy, 01/12/24, Routine, Order for Future Visit, Transport Mode: Ambulatory, Reason: Screening, No, Breast cancer screening by mammogram, pp_set_radiology_sub specialty, Required & Missing, [facility]\.br\ Medications\.br\ What How Much When Instructions\.br\ New methylPREDNISolone (Medrol 4 mg Tab) 1 Packets By Mouth As Directed Duration: 6 Days as directed on package labeling Pickup at [facility]/pharmacy #[id number]\.br\ Changed buPROPion (buPROPion 300 mg/ 24 hours ER Tab) 1 Tablets By Mouth Every 24 hours Duration: 90 Days Pickup at [facility]/pharmacy #[id number]\.br\ Unchanged acetaminophen-oxycod one (Percocet 5 mg-325 mg oral tablet) 1 Tablets By Mouth Every 6 hours DX M79.7 Fibromyalgia Pickup at [facility]/pharmacy #[id number]\.br\ Unchanged albuterol (Albuterol (Eqv-Proventil HFA) 90 mcg/ inh inhalation aerosol) 2 Puffs Inhalation Every 4 hours Contact prescribing physician if questions or concerns \.br\ Unchanged albuterol (albuterol 0.083% Inh Nikki 3 mL) 3 Milliliter Nebulized inhalation (aerosol) Every 6 hours Contact prescribing physician if questions or concerns \.br\ Unchanged allopurinol (allopurinol 300 mg Tab) 1 Tablets By Mouth Every day per specialist Contact prescribing physician if questions or concerns \.br\ Unchanged APAP/ butalbital/ caffeine (APAP/ butalbital/ caffeine 325 mg-50 mg-40 mg oral capsule) 2 Capsules By Mouth 4 times a day as needed for as needed for headache Contact prescribing physician if questions or concerns \.br\ Unchanged apixaban (Eliquis 5 mg oral tablet) 1 Tablets By Mouth 2 times a day Contact prescribing physician if questions or concerns \.br\ Unchanged aspirin 81 Milligram By Mouth Every day Contact prescribing physician if questions or concerns \.br\ Unchanged budesonide-formotero l (Symbicort 160/ 4.5 inhalation aerosol with adapter) 2 Puffs Inhalation 2 times a day Contact prescribing physician if questions or concerns \.br\ Unchanged cetirizine (cetirizine 10 mg oral capsule) 1 Capsules By Mouth Every day as needed for for allergy symptoms Contact prescribing physician if questions or concerns \.br\ Unchanged cholecalciferol (cholecalciferol 2000 intl units oral tablet (Vitamin D3)) 1 Tablets By Mouth Every day Contact prescribing physician if questions or concerns \.br\ Unchanged hydrochlorothiazide- triamterene (hydrochlorothiazide -triamterene 25 mg-37.5 mg Tab) 1 Tablets By Mouth Every day Contact prescribing physician if questions or concerns \.br\ Unchanged lisinopril (lisinopril 5 mg Tab) 1 Tablets By Mouth Every day Contact prescribing physician if questions or concerns \.br\ Unchanged meclizine (meclizine 25 mg Tab) 1 Tablets By Mouth 2 times a day as needed for Dizziness Contact prescribing physician if questions or concerns \.br\ Unchanged Misc Prescription (Nebulizer tubing and mouthpiece) See instructions use as directed. Dx: COPD Contact prescribing physician if questions or concerns \.br\ Unchanged Misc Prescription (Permanent Handicap Paking Placcard (5 year)) See instructions Handicap Parking Contact prescribing physician if questions or concerns \.br\ Unchanged omeprazole (omeprazole 40 mg Cap-DR) 1 Capsules By Mouth Every day Contact prescribing physician if questions or concerns \.br\ Unchanged ondansetron (ondansetron 4 mg Tab) 1 Tablets By Mouth Every 8 hours Contact prescribing physician if questions or concerns \.br\ Unchanged pravastatin (pravastatin 10 mg Tab) 1 Tablets By Mouth Every day Contact prescribing physician if questions or concerns \.br\ Unchanged promethazine (promethazine 25 mg Tab) 1 Tablets By Mouth Every 4 hours as needed for for nausea/vomiting Contact prescribing physician if questions or concerns \.br\ Unchanged ropinirole (ropinirole 1 mg Tab) 1 Tablets By Mouth 3 times a day Contact prescribing physician if questions or concerns \.br\ Unchanged theophylline (theophylline 300 mg ER Tab) 1 Tablets By Mouth Every 12 hours Contact prescribing physician if questions or concerns \.br\ Pharmacy Information\.br\ [facility]/pharmacy #[id number]: [address], [place] [id number] [phone]\.br\ Allergies\.br\ gabapentin (Throat tightness, Nausea, Stomach upset)\.br\ NSAIDs (Renal failure)\.br\ Ventolin HFA (Inadequate)\.br\ Problems\.br\ Ongoing - Any problem that you are currently receiving treatment for.\.br\ Abdominal wall abscess\.br\ Abdominal wall hernia\.br\ Abnormal mammography\.br\ Anxiety\.br\ Breast cancer screening by mammogram\.br\ Chronic kidney disease (CKD), stage IV (severe)\.br\ Chronic obstructive pulmonary disease (COPD)\.br\ Class 2 obesity due to excess calories in adult\.br\ DJD (degenerative joint disease)\.br\ Extensor tendonitis of foot\.br\ Fatigue\.br\ Fibromyalgia\.br\ GERD (gastroesophageal reflux disease)\.br\ Hyperglycemia\.br\ Hyperlipidemia\.br\ Hypertension\.br\ Insomnia\.br\ Irritable bowel syndrome (IBS)\.br\ Leg pain\.br\ Migraine\.br\ MRSA (methicillin resistant staph aureus) culture positive\.br\ Obstructive sleep apnea\.br\ [place]ne dermatitis\.br\ Restless leg syndrome\.br\ Right leg DVT\.br\ Seasonal allergies\.br\ Smoker\.br\ Stage 3 chronic kidney disease\.br\ Swallowing difficulty\.br\ Vitamin D deficiency\.br\ Historical - Any problem that you are no longer receiving treatment for.\.br\ Ablation\.br\ Back pain\.br\ Bipolar 1 disorder, mixed, mild\.br\ Candidal intertrigo\.br\ section\.br\ HTN - Hypertension\.br\ Knee joint pain\.br\ Sinusitis\.br\ Patient Survey\.br\ You may receive a survey via text or e-mail asking about your office visit. Please share your experience with us by completing your survey. We appreciate your feedback and thank you for choosing us for your care.\.br\ Education Materials\.br\ Hypertension, Adult\.br\ High blood pressure (hypertension) is when the force of blood pumping through the arteries is too strong. The arteries are the blood vessels that carry blood from the heart throughout the body. Hypertension forces the heart to work harder to pump blood and may cause arteries to become narrow or stiff. Untreated or uncontrolled hypertension can lead to a heart attack, heart failure, a stroke, kidney disease, and other problems.\.br\ A blood pressure reading consists of a higher number over a lower number. Ideally, your blood pressure should be below 120/80. The first ( top ) number is called the systolic pressure. It is a measure of the pressure in your arteries as your heart beats. The second ( bottom ) number is called the diastolic pressure. It is a measure of the pressure in your arteries as the heart relaxes.\.br\ What are the causes?\.br\ The exact cause of this condition is not known. There are some conditions that result in high blood pressure.\.br\ What increases the risk?\.br\ Certain factors may make you more likely to develop high blood pressure. Some of these risk factors are under your control, including:\.br\ ? \.br\ Smoking.\.br\ ? \.br\ Not getting enough exercise or physical activity.\.br\ ? \.br\ Being overweight.\.br\ ? \.br\ Having too much fat, sugar, calories, or salt (sodium) in your diet.\.br\ ? \.br\ Drinking too much alcohol.\.br\ Other risk factors include:\.br\ ? \.br\ Having a personal history of heart disease, diabetes, high cholesterol, or kid [facility] Family Medicine Office/Clini c Noteon 01-12-2024 Family Medicine Office/Clinic Note Family Medicine Office/Clinic Note HPI Staff Patient is here for follow up on hypertension.Hyperli pidemia.CKD How often are you checking your blood pressure? Not checking What are your average readings? none Are you compliant with your diet? yes Do you exercise? no Are you compliant with your medications? yes Are you having difficulty affording your medications? no Do you have side effects from the medication? no Do you have any of the following symptoms? Chest Pain? no Palpitations? no LARIOS/SOB? no Headache? yes Peripheral Edema? no Light Headedness? yes when standing Patient is here for follow up on COPD: Do you have any changes in sputum quantity or color? no Do you have SOB or LARIOS? yes Do you have an increased cough? no Medication regimen: neb, inhalers Are you compliant with your medications yes Difficulty affording your medications? no Do you use O2? no History of Present Illness a 58-year-old female presenting today for 3-month chronic care follow-up. HPI staff / Chief Complaint confirmed with the patient Social: The patient is NOT ; The patient is NOT currently working; DISABLILTY The patient has 2 child(maximiliano) 2 grandchild(maximiliano) Screening: Colon Cancer screening: REFUSED with a _ year f/u recommended; this patient does NOT have family history of colon cancer Breast cancer screenin12/31/2022 ; this patient does NOT have a family history of breast cancer Pap smear: awhile ago DEXA: NA Labs: 03/2023 Eye exam: 2020 done by [facility] in [place] Dental exam: 2022 tooth pulled Smokers/ former smokers: quit 03/[address]: _ List of Providers: Funeral Car Chauffeur: Dr Murphy LABS Cr/eGFR: eGFR: 24 mL/min/1.73 m2 Low (04/24/23 09:34:00) Creatinine: 2.3 mg/dL High (04/24/23 09:34:00) A1c: No qualifying data available. TSH: No qualifying data available. Vit D: Vitamin D 25 Hydroxy: 38.4 ng/mL (03/21/22 11:45:00) LDL: LDL Direct: 123 mg/dL (04/24/23 09:34:00) Lipids: Chol: 182 mg/dL (04/24/23 09:34:00) HDL: 40 mg/dL (04/24/23 09:34:00) LDL Direct: 123 mg/dL (04/24/23 09:34:00) Tri mg/dL High (04/24/23 09:34:00) VLDL: 37 mg/dL (04/24/23 09:34:00) [facility] ADAM Schneider Appt. Date: 03/10/2024 1:00 PM Scheduled Provider: ADAM Schneider [employer] Phone: -- Fax: -- The patient has yet to undergo a colonoscopy or the Cologuard test, expressing reluctance to undergo the procedure. Her last mammogram was conducted a year ago, during which a biopsy was performed, and she was advised to undergo annual mammograms. The patient has undergone an ablation procedure. She has not undergone a hysterectomy and has not undergone a Pap smear recently. Her last eye examination was conducted approximately 3 years ago. Her last dental check-up was approximately a year ago when she had a tooth extracted. She quit smoking in 02/2023 or 03/2023 following a blood clot. She is under the care of a faculty research assistant, Dr. Murphy, at [facility] in [place], with a follow-up appointment scheduled for either 01/2024 or 02/2024. Her kidney function has shown slight improvement since her last visit, prompting her to consult with Dr. Murphy every 6 months. She denies experiencing chest pain or palpitations or leg swelling. She occasionally experiences leg cramps, denies redness on legs. The patient reports that she got her albuterol on 12/30/2023 but she was informed that there was no Percocet on her list. The patient's weight loss specialist has not contacted her. She reports a loss of approximately 0.5 pounds since her last visit. Percocet has been effective in managing her fibromyalgia. The patient experienced a gout flare-up in her big toe, which subsequently spread to her second toe. Her finger remains sore, and she was previously unable to bend it. Her foot condition has improved. She has been maintaining hydration. She does not consume more fruits. The patient has trouble initiating and maintaining sleep. Melatonin was ineffective. She is on Wellbutrin 300 mg but experiencing mild grouchy due to her anxiety about her daughter having autoimmune disease. The patient is under a lot of stress currently. She denies any family history of colon cancer. Her maternal grandmother from breast cancer. Review of Systems PHQ Score Initial Depression Screen Score: 0 SCORE Negative as stated in the HPI. Physical Exam Vitals & Measurements T: 36.5 ?C(Temporal Artery) HR: 84(Peripheral) RR: 16 BP: 116/88 SpO2: 97% HT: 64 in HT: 163 cm WT: 103.8 kg WT: 228.36 lb BMI: 39.07 Constitutional: Well-groomed, well-nourished, no signs of acute distress. HEENT: Head normocephalic, sclera is clear. Cardiothoracic: Heart rate and rhythm is regular strong, normal S1 and S2. No murmurs, rubs, or bruits auscultated. No peripheral edema, peripheral pulses +2 Respiratory: Lung sounds are clear throughout, respirations regular nonlabored. Abdomen/GI: Abdomen soft nondistended. Waist circumference is (more content not included)... Normal [facility] Comment on above: Result Comment: Elec tronically Signed By: Khari MISHRA, BUS PERSON- Yolanda RODRIGUEZ\.br\Date and Time Signed: 01/12/24 17:07 EDT\.br\Electronically Co-Signed By: Theresa Majano\.br\Date and Time Co-Signed: 01/12/24 16:37 EDT Physician Referralon 024 Physician Referral [id number] #[email or web address] Paula [facility] Ambulatory Visit Summaryon 0 10-13-2023 Ambulatory Visit Summary IMANI MCCLOUD :1965 Visit Date:10/13/2023 Ambulatory Visit Instructions Your Diagnosis Weight loss counseling, encounter for Fibromyalgia Class 2 severe obesity due to excess calories with serious comorbidity in adult BMI 39.0-39.9,adult Your Care Team Attending Physician - Khari MSN, BUS PERSON-OCEANOGRAPHY TEACHERYolanda Primary Care Physician - Khari MISHRA, BUS PERSON-OCEANOGRAPHY TEACHERYolanda This Is Your Medications List acetaminophen-oxycod one (Percocet 5 mg-325 mg oral tablet) Contact prescribing physician if questions or concerns APAP/butalbital/caff eine (APAP/butalbital/caf feine 325 mg-50 mg-40 mg oral capsule) Misc Prescription (Nebulizer tubing and mouthpiece) Misc Prescription (Permanent Handicap Paking Placcard (5 year)) albuterol (Albuterol (Eqv-Proventil HFA) 90 mcg/inh inhalation aerosol) albuterol (albuterol 0.083% Inh Nikki 3 mL) allopurinol (allopurinol 300 mg Tab) apixaban (Eliquis 5 mg oral tablet) aspirin buPROPion (buPROPion 150 mg/24 hours XL Tab) budesonide-formotero l (Symbicort 160/4.5 inhalation aerosol with adapter) cetirizine (cetirizine 10 mg oral capsule) cholecalciferol (cholecalciferol 2000 intl units oral tablet (Vitamin D3)) hydrochlorothiazide- triamterene (hydrochlorothiazide -triamterene 25 mg-37.5 mg Tab) lisinopril (lisinopril 5 mg Tab) meclizine (meclizine 25 mg Tab) omeprazole (omeprazole 40 mg Cap-DR) ondansetron (ondansetron 4 mg Tab) pravastatin (pravastatin 10 mg Tab) promethazine (promethazine 25 mg Tab) ropinirole (ropinirole 1 mg Tab) theophylline (theophylline 300 mg ER Tab) Procedures Performed right ultrasound guided core breast biopsy (2017), Cardiac catheterisation (05/2014), Endometrial ablation (2006), section (1991), Laparoscopic cholecystectomy (1986). Discharge Vitals Temperature (Oral) 36.5 ?C Heart Rate (Peripheral) 79 Respiratory Rate 16 Blood Pressure 132/80 Height 163 cm Height 64 in Weight 104.1 kg Weight 229.02 lb BMI 39.18 What to do next Scheduled Follow-Up Appointments Thursday 2:00 PM EDT With: Khari MISHRA, Yolanda LUNA Where: [facility] Invalid Interpretation Code [address] [place] [address]- \.br\ You Need to Schedule the Following Appointments\.br\ Follow Up with Khari MISHRA, Yolanda LUNA When: In 3 months\.br\ Comments:\.br\ chronic care\.br\ Where:\.br\ [facility]br\ [place] [address]\.br\ Someone Will Contact You Regarding These Appointments\.br\ [facility] External Ambulatory Referral, Other Referral, Dr [facility] weight loss clinic in [place], 10/13/23 14:24:00 EDT, Class 2 severe obesity due to excess calories with serious comorbidity in adult [facility] Family Medicine Office/Clini c Noteon 10-13-2023 Family Medicine Office/Clinic Note Chief Complaint Pt presents for 1 month weight loss F/U. HPI Staff Weight management Sleeping well:Yes, 6-8 hours Chest pain:No Tremors:No Headaches:No Heart fluttering:No Blurred Vision:No History of Present Illness 58-year-old female presenting today for a 1-month weight loss follow-up. The patient has lost around 1.98 lbs. She saw her faculty research assistant and was advised to have a referral for Dr. Rock so she can get her Ozempic. She occasionally exercise by walking outside but she has not exercise much recently because she has been attending her dying [id number]. She has been cooking eating her own cooked meals, and has been incorporating fruits and vegetable to her diet. She is controlling the portion size of her meals. Her water intake is unsatisfactory and has been drinking 1 Pepsi a day. Her GFR increased from 26 to 24 mL/min. She applies Chapstick to the corner of her mouth which has not helped. She has not tried Neosporin. She wakes up in the morning and noticed a dry area, discoloration, and it opened. She is still taking Percocet for her fibromyalgia every other day depending on the weather. Rainy weather makes her symptoms worse. She needs a refill for her Percocet, theophylline, and other medications. She denies any chest pain, palpitation or lower extremity edema. Weight loss/gain: -1.98 Exercise regimen: Number times per week:___ For how many minutes___ not a whole lot due mother in law terminally ill Nutrition status: decrease portion sizes, increase vegetables and fruit. Water intake: needs to improve. Adhering to medication for weight loss: Bupropion Review of Systems PHQ Score Initial Depression Screen Score: 0 SCORE Negative as stated in the HPI. Physical Exam Vitals & Measurements T: 36.5 ?C(Oral) HR: 79(Peripheral) RR: 16 BP: 132/80 SpO2: 99% HT: 64 in HT: 163 cm WT: 104.1 kg WT: 229.02 lb BMI: 39.18 Constitutional: Well-groomed, well-nourished, no signs of acute distress. HEENT: Head normocephalic, sclera is clear. Cardiothoracic: Heart rate and rhythm is regular strong, normal S1 and S2. No murmurs, rubs, or bruits auscultated. No peripheral edema, peripheral pulses +2 Respiratory: Lung sounds are clear throughout, respirations regular nonlabored. Abdomen/GI: Abdomen soft nondistended. Musculoskeletal: Gait is steady, full range of motion. Integument: No rashes or lesions noted to the exposed skin. Psychiatric: Alert and oriented x 3, pleasant, no mood changes. Assessment/Plan 1. Weight loss counseling, encounter for (Z71.3: Dietary counseling and surveillance) The patient has experienced a weight loss of 1.98 pounds, attributing this to the ongoing stress of caring for her terminally ill [id number]. She is currently under the care of a faculty research assistant, who recommended a consultation with Dr. Rock, who knows how to acquire Ozempic even if the patient is not diabetic. Wondering if he was referring to compound medications for weight loss. A referral will be initiated for any beneficial suggestions. The patient is advised to continue monitoring her nutritional status and gradually incorporate regular exercise into her routine. Education was provided regarding an exercise regimen, including core muscles exercises, walking, the target heart rate, and overall fitness. Given her ongoing follow-ups with Dr. Rock, bupropion will be continued, and a follow-up appointment will be scheduled in 3 months to assess his recommendations. 2. Fibromyalgia (M79.7: Fibromyalgia) The patient is currently on Percocet for her fibromyalgia. However, due to her chronic kidney disease, she is advised to monitor her intake. A refill is requested by the patient, which she only takes every other day, contingent on the weather. OARRS reviewed. No abnormal discrepancies found. We will proceed with prescription management. 10/11/2023 19:08:03 3. Class 2 severe obesity due to excess calories with serious comorbidity in adult (E66.01: Morbid (severe) obesity due to excess calories) Calorie restriction along with routine aerobic exercises discussed in order to avoid hypertension, osteoarthritis, metabolic syndrome and/or worsening of chronic underlying disease states Ordered: [facility] External Ambulatory Referral 4. BMI 39.0-39.9,adult (Z68.39: Body mass index [BMI] 39.0-39.9, adult) See #3. Ordered: [facility] External Ambulatory Referral Orders: acetaminophen-oxycod one, 1 tab(s), Oral, q6hr, 30 tab(s), Refill(s) 0, DX M79.7 Fibromyalgia, [id number], 163, cm, 10/13/23 14:01:00 EDT, Height/Length Dosing, 104.1, kg, 10/13/23 14:01:00 EDT, Weight Dosing Portions of this record may have been created with voice recognition artificial intelligence software, specifically [employer], [employer] and or [employer]. Substitutions may have occurred due to the inherent limitations of voice recognition and artificial intelligence software. Documentation services were performed after patient (more content not included)... Normal [facility] Comment on above: Result Comment: Elec tronically Signed By: Khari MISHRA, BUS PERSON- MICHAEL, Yolanda Almodovar\.br\Date and Time Signed: 10/13/23 19:53 EDT\.br\Electronically Co-Signed By: Mirna Arnold.slime\Date and Time Co-Signed: 10/13/23 16:35 EDT Patient Educationon 10-11-19 Patient Education Nutrition DASH Eating Plan DASH stands for Dietary Approaches to Stop Hypertension. The DASH eating plan is a healthy eating plan that has been shown to: ? Reduce high blood pressure (hypertension). ? Reduce your risk for type 2 diabetes, heart disease, and stroke. ? Help with weight loss. What are tips for following this plan? Reading food labels ? Check food labels for the amount of salt (sodium) per serving. Choose foods with less than 5 percent of the Daily Value of sodium. Generally, foods with less than 300 milligrams (mg) of sodium per serving fit into this eating plan. ? To find whole grains, look for the word whole as the first word in the ingredient list. Shopping ? Buy products labeled as low-sodium or no salt added. ? Buy fresh foods. Avoid canned foods and pre-made or frozen meals. Cooking ? Avoid adding salt when cooking. Use salt-free seasonings or herbs instead of table salt or sea salt. Check with your health care provider or pharmacist before using salt substitutes. ? Do not pérez foods. Cook foods using healthy methods such as baking, boiling, grilling, roasting, and broiling instead. ? Cook with heart-healthy oils, such as olive, canola, avocado, soybean, or sunflower oil. Meal planning ? Eat a balanced diet that includes: ? 4 or more servings of fruits and 4 or more servings of vegetables each day. Try to fill one-half of your plate with fruits and vegetables. ? 6?8 servings of whole grains each day. ? Less than 6 oz (170 g) of lean meat, poultry, or fish each day. A 3-oz (85-g) serving of meat is about the same size as a deck of cards. One egg equals 1 oz (28 g). ? 2?3 servings of low-fat dairy each day. One serving is 1 cup (237 mL). ? 1 serving of nuts, seeds, or beans 5 times each week. ? 2?3 servings of heart-healthy fats. Healthy fats called omega-3 fatty acids are found in foods such as walnuts, flaxseeds, fortified milks, and eggs. These fats are also found in cold-water fish, such as sardines, salmon, and mackerel. ? Limit how much you eat of: ? Canned or prepackaged foods. ? Food that is high in trans fat, such as some fried foods. ? Food that is high in saturated fat, such as fatty meat. ? Desserts and other sweets, sugary drinks, and other foods with added sugar. ? Full-fat dairy products. ? Do not salt foods before eating. ? Do not eat more than 4 egg yolks a week. ? Try to eat at least 2 vegetarian meals a week. ? Eat more home-cooked food and less restaurant, buffet, and fast food. Lifestyle ? When eating at a restaurant, ask that your food be prepared with less salt or no salt, if possible. ? If you drink alcohol: ? Limit how much you use to: ? 0?1 drink a day for women who are not . ? 0?2 drinks a day for men. ? Be aware of how much alcohol is in your drink. In the [place] one drink equals one 12 oz bottle of beer (355 mL), one 5 oz glass of wine (148 mL), or one 1? oz glass of hard liquor (44 mL). General information ? Avoid eating more than 2,300 mg of salt a day. If you have hypertension, you may need to reduce your sodium intake to 1,500 mg a day. ? Work with your health care provider to maintain a healthy body weight or to lose weight. Ask what an ideal weight is for you. ? Get at least 30 minutes of exercise that causes your heart to beat faster (aerobic exercise) most days of the week. Activities may include walking, swimming, or biking. ? Work with your health care provider or dietitian to adjust your eating plan to your individual calorie needs. What foods should I eat? Fruits All fresh, dried, or frozen fruit. Canned fruit in natural juice (without added sugar). Vegetables Fresh or frozen vegetables (raw, steamed, roasted, or grilled). Low-sodium or reduced-sodium tomato and vegetable juice. Low-sodium or reduced-sodium tomato sauce and tomato paste. Low-sodium or reduced-sodium canned vegetables. Grains Whole-grain or whole-wheat bread. Whole-grain or whole-wheat pasta. Brown rice. Oatmeal. Quinoa. Bulgur. Whole-grain and low-sodium cereals. Adwoa bread. Low-fat, low-sodium crackers. Whole-wheat flour tortillas. Meats and other proteins Skinless chicken or turkey. Ground chicken or turkey. Pork with fat trimmed off. Fish and seafood. Egg whites. Dried beans, peas, or lentils. Unsalted nuts, nut butters, and seeds. Unsalted canned beans. Lean cuts of beef with fat trimmed off. Low-sodium, lean precooked or cured meat, such as sausages or meat loaves. Dairy Low-fat (1%) or fat-free (skim) milk. Reduced-fat, low-fat, or fat-free cheeses. Nonfat, low-sodium ricotta or cottage cheese. Low-fat or nonfat yogurt. Low-fat, low-sodium cheese. Fats and oils Soft margarine without trans fats. Vegetable oil. Reduced-fat, low-fat, or light mayonnaise and salad dressings (reduced-sodium). Canola, safflower, olive, avocado, soybean, and sunflower oils. Avocado. Seasonings and condiments Herbs. Spices. Seasoni (more content not included)... Normal [facility] No Panel Informationon 09-27 Parathyroid Hormone (Intact) 85 pg/mL 15-65 [facility] Comment on above: Performed at: [address] [id number] Director: Camacho Maurer PhD, Phone: [phone] Family Medicine Office/Clini c Noteon 08-23-2023 Family Medicine Office/Clinic Note Chief Complaint Here for weight management also needs refill on headache medicine History of Present Illness a 57-year-old female who is presenting today for weight loss management. The patient's insurance company has denied coverage for weight loss medications. Her most recent blood glucose level was 92 mg/dL. She has been reducing her food intake, but continues to consume at least 1 soda daily. She has also been reducing her carbohydrate intake and incorporating more fruits and vegetables into her diet. She has been consuming approximately 3 bottles of water daily. She avoids watching television while eating. 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 She has recently lost 3.08 pounds. Her weight loss goal for the upcoming month is 3 pounds. She has not tried taking bupropion, but has expressed interest in trying it. Her blood pressure has been stable. She does not monitor her blood pressure at home. She denies any chest pain or palpitations. She has been experiencing significant hair loss during brushing since initiating Eliquis therapy in 02/2023 for blood clot management. In 02/2023, she woke up with a bruised leg, which caused pain for several days, and eventually difficulty with ambulation. She has occasionally been experiencing mild residual pain. She presents with a bruised and swollen hand, but she cannot recall any trauma. She has not tried applying ice on her hand. She is requesting an ear evaluation due to intermittent throbbing ear pain, exacerbated by cold weather. She denies congestion. She typically wears a hat to cover her ears when outdoors. She is requesting refills of her Percocet, as well as migraine medication. Review of Systems PHQ Score Initial Depression Screen Score: 0 SCORE Negative as stated in the HPI. Physical Exam Vitals & Measurements T: 36.6 ?C(Temporal Artery) HR: 78(Peripheral) RR: 18 BP: 130/70 SpO2: 98% HT: 64 in HT: 163 cm WT: 105 kg WT: 231 lb BMI: 39.52 Constitutional: Well-groomed, well-nourished, no signs of acute distress. HEENT: Head normocephalic, sclera is clear. Bilateral ear canals patent minimal cerumen, TMs pearly merchant light reflex. Cardiothoracic: Heart rate and rhythm is regular strong, normal S1 and S2. No murmurs, rubs, or bruits auscultated. No peripheral edema, peripheral pulses +2 Respiratory: Lung sounds are clear throughout, respirations regular nonlabored. Abdomen/GI: Abdomen soft nondistended. Waist circumference is 112.5 cm. Musculoskeletal: Gait is steady, full range of motion. Integument: No rashes or lesions noted to the exposed skin. Psychiatric: Alert and oriented x 3, pleasant, no mood changes. Assessment/Plan 1. Weight loss counseling, encounter for (Z71.3: Dietary counseling and surveillance) She is following up with me for weight loss. She did tell us that she talked to the insurance and they said they will cover the Rybelsus and when we send it in, she got denied. We also checked with Zepbound and Saxenda and got denied both times. Her blood sugar was only 92 mg/dL per lab. What we will do is we will try bupropion 150 mg to see if that will help. Reminded her that this has to be a lifestyle change. She has to take the initiative, she has to do it on her own. She verbalizes understanding. Education was given on food measuring and portion, healthy eating habits, label readings, healthier substitution, and beating the cravings. She is relying on moving around in her household as part of the exercise. Did discuss weights as well as anything to get the cardiac up. Informed her that we will discuss this further at her next appointment. She is however down 3.08 pounds. We are hoping that if we can get this down, this will help her kidney function as well as her fibromyalgia. 2. Hypertension (I10: Essential (primary) hypertension) The importance of the following were all reviewed with the patient: -Take medications as prescribed. There are simple Lifestyle Modifications that you can do to reduce your blood pressure. -Weight Reduction -Follow the DASH eating plan. -Reduce Sodium (Salt) Intake to 2000mg per day. -Use Moderation when consuming alcohol. - To improve your health we recommend increasing your level of moderate exercise to at least 2.5 hours per week. Blood pressure is well managed. She is currently on hydrochlorothiazide/ triamterene, overall doing well with that as well as lisinopril. We will continue the medication currently and we will continue to monitor. 3. Chronic kidney disease (CKD), stage IV (severe) (N18.4: Chronic kidney disease, stage 4 (severe)) She follows up with a faculty research assistant on a regular basis. She was encouraged to lose weight. This is why she is seeing me. We did discuss cutting back on absolutely no sodium or definitely limiting very small amount, maintain good hydration, and avoid NSAIDs. We will assist her with her weight loss. 4. Fibromyalgia (M79.7: Fibromyalgia) She has known history (more content not included)... Normal [facility] Comment on above: Result Comment: Elec tronically Signed By: Khari MISHRA, BUS PERSON- OCEANOGRAPHY TEACHER, Yolanda WhiteheadJoelle\.br\Date and Time Signed: 08/23/23 13:41 EST\.br\Electronically Co-Signed By: Dayan Hernandez\.br\Date and Time Co-Signed: 08/21/23 16:59 EST Patient Educationon 08-23-19 Patient Education Nephrology Chronic Kidney Disease, Adult Chronic kidney disease (CKD) occurs when the kidneys are slowly and permanently damaged over a long period of time. The kidneys are a pair of organs that do many important jobs in the body, including: ? Removing waste and extra fluid from the blood to make urine. ? Making hormones that maintain the amount of fluid in tissues and blood vessels. ? Maintaining the right amount of fluids and chemicals in the body. A small amount of kidney damage may not cause problems, but a large amount of damage may make it hard or impossible for the kidneys to work right. Steps must be taken to slow kidney damage or to stop it from getting worse. If steps are not taken, the kidneys may stop working permanently (end-stage renal disease, or ESRD). Most of the time, CKD does not go away, but it can often be controlled. People who have CKD are usually able to live full lives. What are the causes? The most common causes of this condition are diabetes and high blood pressure (hypertension). Other causes include: ? Cardiovascular diseases. These affect the heart and blood vessels. ? Kidney diseases. These include: ? Glomerulonephritis, or inflammation of the tiny filters in the kidneys. ? Interstitial nephritis. This is swelling of the small tubes of the kidneys and of the surrounding structures. ? Polycystic kidney disease, in which clusters of fluid-filled sacs form within the kidneys. ? Renal vascular disease. This includes disorders that affect the arteries and veins of the kidneys. ? Diseases that affect the body's defense system (immune system). ? A problem with urine flow. This may be caused by: ? Kidney stones. ? Cancer. ? An enlarged prostate, in males. ? A kidney infection or urinary tract infection (UTI) that keeps coming back. ? Vasculitis. This is swelling or inflammation of the blood vessels. What increases the risk? Your chances of having kidney disease increase with age. The following factors may make you more likely to develop this condition: ? A family history of kidney disease or kidney failure. Kidney failure means the kidneys can no longer work right. ? Certain genetic diseases. ? Taking medicines often that are damaging to the kidneys. ? Being around or being in contact with toxic substances. ? Obesity. ? A history of tobacco use. What are the signs or symptoms? Symptoms of this condition include: ? Feeling very tired (lethargic) and having less energy. ? Swelling, or edema, of the face, legs, ankles, or feet. ? Nausea or vomiting, or loss of appetite. ? Confusion or trouble concentrating. ? Muscle twitches and cramps, especially in the legs. ? Dry, itchy skin. ? A metallic taste in the mouth. ? Producing less urine, or producing more urine (especially at night). ? Shortness of breath. ? Trouble sleeping. CKD may also result in not having enough red blood cells or hemoglobin in the blood (anemia) or having weak bones (bone disease). Symptoms develop slowly and may not be obvious until the kidney damage becomes severe. It is possible to have kidney disease for years without having symptoms. How is this diagnosed? This condition may be diagnosed based on: ? Blood tests. ? Urine tests. ? Imaging tests, such as an ultrasound or a CT scan. ? A kidney biopsy. This involves removing a sample of kidney tissue to be looked at under a microscope. Results from these tests will help to determine how serious the CKD is. How is this treated? There is no cure for most cases of this condition, but treatment usually relieves symptoms and prevents or slows the worsening of the disease. Treatment may include: ? Diet changes, which may require you to avoid alcohol and foods that are high in salt, potassium, phosphorous, and protein. ? Medicines. These may: ? Lower blood pressure. ? Control blood sugar (glucose). ? Relieve anemia. ? Relieve swelling. ? Protect your bones. ? Improve the balance of salts and minerals in your blood (electrolytes). ? Dialysis, which is a type of treatment that removes toxic waste from the body. It may be needed if you have kidney failure. ? Managing any other conditions that are causing your CKD or making it worse. Follow these instructions at home: Medicines ? Take [id number] and prescription medicines only as told by your health care provider. The amount of some medicines that you take may need to be changed. ? Do not take any new medicines unless approved by your health care provider. Many medicines can make kidney damage worse. ? Do not take any vitamin and mineral supplements unless approved by your health care provider. Many nutritional supplements can make kidney damage worse. Lifestyle ? Do not use any products that contain nicotine or tobacco, such as cigarettes, e-cigarettes, and chewing tobacco. If you need help quitting, ask your (more content not included)... Normal [facility] Ambulatory Visit Summaryon 0 08-21-2023 Ambulatory Visit Summary IMANI MCCLOUD :1965 Visit Date:08/21/2023 Ambulatory Visit Instructions Your Diagnosis Weight loss counseling, encounter for Hypertension Chronic kidney disease (CKD), stage IV (severe) Fibromyalgia Class 2 severe obesity due to excess calories with serious comorbidity in adult BMI 39.0-39.9,adult Your Care Team Attending Physician - Khari MISHRA, CINDY-Yolanda RODRIGUEZ Primary Care Physician - Khari MISHRA, CINDY-Yolanda RODRIGUEZ This Is Your Medications List APAP/butalbital/caff eine (APAP/butalbital/caf feine 325 mg-50 mg-40 mg oral capsule) acetaminophen-oxycod one (Percocet 5 mg-325 mg oral tablet) buPROPion (buPROPion 150 mg/24 hours XL Tab) Contact prescribing physician if questions or concerns Misc Prescription (Nebulizer tubing and mouthpiece) Misc Prescription (Permanent Handicap Paking Placcard (5 year)) albuterol (Albuterol (Eqv-Proventil HFA) 90 mcg/inh inhalation aerosol) albuterol (albuterol 0.083% Inh Nikki 3 mL) allopurinol (allopurinol 300 mg Tab) apixaban (Eliquis 5 mg oral tablet) aspirin budesonide-formotero l (Symbicort 160/4.5 inhalation aerosol with adapter) cetirizine (cetirizine 10 mg oral capsule) cholecalciferol (cholecalciferol 2000 intl units oral tablet (Vitamin D3)) hydrochlorothiazide- triamterene (hydrochlorothiazide -triamterene 25 mg-37.5 mg Cap) hydrochlorothiazide- triamterene (hydrochlorothiazide -triamterene 25 mg-37.5 mg Tab) lisinopril (lisinopril 5 mg Tab) meclizine (meclizine 25 mg Tab) omeprazole (omeprazole 40 mg Cap-DR) ondansetron (ondansetron 4 mg Tab) pravastatin (pravastatin 10 mg Tab) promethazine (promethazine 25 mg Tab) ropinirole (ropinirole 1 mg Tab) theophylline (theophylline 300 mg ER Tab) Procedures Performed right ultrasound guided core breast biopsy (2017), Cardiac catheterisation (05/2014), Endometrial ablation (2006), section (1991), Laparoscopic cholecystectomy (1986). Discharge Vitals Temperature (Temporal Artery) 36.6 ?C Heart Rate (Peripheral) 78 Respiratory Rate 18 Blood Pressure 130/70 Height 163 cm Height 64 in Weight 105 kg Weight 231 lb BMI 39.52 What to do next Scheduled Follow-Up Appointments Thursday 1:00 PM EDT With: Khari MISHRA, Yolanda LUNA Where: [facility] [address] [place] [phone].br\ You Need to Schedule the Following Appointments\.br\ Follow Up with Khari MISHRA, Yolanda LUNA When: In 1 month\.br\ Comments:\.br\ weight loss\.br\ Where:\.br\ [address] [place] [address]\.br\ [place] [address]\.br\ Medications\.br\ What How Much When Instructions\.br\ New buPROPion (buPROPion 150 mg/ 24 hours XL Tab) 1 Tablets By Mouth Every 24 hours Pickup at [facility]/pharmacy #[id number]\.br\ Unchanged acetaminophen-oxycod one (Percocet 5 mg-325 mg oral tablet) 1 Tablets By Mouth Every 6 hours DX M79.7 Fibromyalgia Pickup at [facility]/pharmacy #[id number]\.br\ Unchanged APAP/ butalbital/ caffeine (APAP/ butalbital/ caffeine 325 mg-50 mg-40 mg oral capsule) 2 Capsules By Mouth 4 times a day as needed for as needed for headache Pickup at [facility]/pharmacy #[id number]\.br\ Unchanged albuterol (Albuterol (Eqv-Proventil HFA) 90 mcg/ inh inhalation aerosol) 2 Puffs Inhalation Every 4 hours Contact prescribing physician if questions or concerns \.br\ Unchanged albuterol (albuterol 0.083% Inh Nikki 3 mL) 3 Milliliter Nebulized inhalation (aerosol) Every 6 hours Contact prescribing physician if questions or concerns \.br\ Unchanged allopurinol (allopurinol 300 mg Tab) 1 Tablets By Mouth Every day per specialist Contact prescribing physician if questions or concerns \.br\ Unchanged apixaban (Eliquis 5 mg oral tablet) 1 Tablets By Mouth 2 times a day Contact prescribing physician if questions or concerns \.br\ Unchanged aspirin 81 Milligram By Mouth Every day Contact prescribing physician if questions or concerns \.br\ Unchanged budesonide-formotero l (Symbicort 160/ 4.5 inhalation aerosol with adapter) 2 Puffs Inhalation 2 times a day Contact prescribing physician if questions or concerns \.br\ Unchanged cetirizine (cetirizine 10 mg oral capsule) 1 Capsules By Mouth Every day as needed for for allergy symptoms Contact prescribing physician if questions or concerns \.br\ Unchanged cholecalciferol (cholecalciferol 2000 intl units oral tablet (Vitamin D3)) 1 Tablets By Mouth Every day Contact prescribing physician if questions or concerns \.br\ Unchanged hydrochlorothiazide- triamterene (hydrochlorothiazide -triamterene 25 mg-37.5 mg Cap) 1 Capsules By Mouth Every day Contact prescribing physician if questions or concerns \.br\ Unchanged hydrochlorothiazide- triamterene (hydrochlorothiazide -triamterene 25 mg-37.5 mg Tab) 1 Tablets By Mouth Every day Contact prescribing physician if questions or concerns \.br\ Unchanged lisinopril (lisinopril 5 mg Tab) 1 Tablets By Mouth Every day Contact prescribing physician if questions or concerns \.br\ Unchanged meclizine (meclizine 25 mg Tab) 1 Tablets By Mouth 2 times a day as needed for Dizziness Contact prescribing physician if questions or concerns \.br\ Unchanged Misc Prescription (Nebulizer tubing and mouthpiece) See instructions use as directed. Dx: COPD Contact prescribing physician if questions or concerns \.br\ Unchanged Misc Prescription (Permanent Handicap Paking Placcard (5 year)) See instructions Handicap Parking Contact prescribing physician if questions or concerns \.br\ Unchanged omeprazole (omeprazole 40 mg Cap-DR) 1 Capsules By Mouth Every day Contact prescribing physician if questions or concerns \.br\ Unchanged ondansetron (ondansetron 4 mg Tab) 1 Tablets By Mouth Every 8 hours Contact prescribing physician if questions or concerns \.br\ Unchanged pravastatin (pravastatin 10 mg Tab) 1 Tablets By Mouth Every day Contact prescribing physician if questions or concerns \.br\ Unchanged promethazine (promethazine 25 mg Tab) 1 Tablets By Mouth Every 4 hours as needed for for nausea/vomiting Contact prescribing physician if questions or concerns \.br\ Unchanged ropinirole (ropinirole 1 mg Tab) 1 Tablets By Mouth 3 times a day Contact prescribing physician if questions or concerns \.br\ Unchanged theophylline (theophylline 300 mg ER Tab) 1 Tablets By Mouth Every 12 hours Contact prescribing physician if questions or concerns \.br\ Pharmacy Information\.br\ [id number]: [address], [place] [id number] [phone]\.br\ Medications and Immunizations Administered\.br\ Not Given\.br\ influenza virus vaccine, inactivated, Postpone due to refusal\.br\ Allergies\.br\ gabapentin (Throat tightness, Nausea, Stomach upset)\.br\ NSAIDs (Renal failure)\.br\ Ventolin HFA (Inadequate)\.br\ Problems\.br\ Ongoing - Any problem that you are currently receiving treatment for.\.br\ Abdominal wall abscess\.br\ Abdominal wall hernia\.br\ Abnormal mammography\.br\ Anxiety\.br\ BMI 39.0-39.9,adult\.br\ BMI 40.0-44.9, adult\.br\ Chronic kidney disease (CKD), stage IV (severe)\.br\ Chronic obstructive pulmonary disease (COPD)\.br\ DJD (degenerative joint disease)\.br\ Extensor tendonitis of foot\.br\ Fatigue\.br\ Fibromyalgia\.br\ GERD (gastroesophageal reflux disease)\.br\ Hyperglycemia\.br\ Hyperlipidemia\.br\ Hypertension\.br\ Insomnia\.br\ Irritable bowel syndrome (IBS)\.br\ Leg pain\.br\ Migraine\.br\ MRSA (methicillin resistant staph aureus) culture positive\.br\ Obstructive sleep apnea\.br\ Poison wayne dermatitis\.br\ Restless leg syndrome\.br\ Right leg DVT\.br\ Seasonal allergies\.br\ Smoker\.br\ Stage 3 chronic kidney disease\.br\ Swallowing difficulty\.br\ Vitamin D deficiency\.br\ Weight loss counseling, encounter for\.br\ Historical - Any problem that you are no longer receiving treatment for.\.br\ Ablation\.br\ Back pain\.br\ Bipolar 1 disorder, mixed, mild\.br\ Candidal intertrigo\.br\ section\.br\ HTN - Hypertension\.br\ Knee joint pain\.br\ Sinusitis\.br\ Patient Survey\.br\ You may receive a survey via text or e-mail asking about your office visit. Please share your experience with us by completing your survey. We appreciate your feedback and thank you for choosing us for your care.\.br\ \.br\ [facility] Pre-Certification Formon Pre-Certification Form [id number] #[id number] Normal [facility] Family Medicine Office/Clini c Noteon 07-23-2023 Family Medicine Office/Clinic Note Chief Complaint Here for 6 month check up, medication refills percocet, History of Present Illness a 57-year-old female who presents here today for a 3-month chronic care follow-up. The patient was seen by her faculty research assistant in 04/2023, who advised her to lose weight. During the visit, he inquired whether she had initiated any weight loss medications, to which she responded in the negative. Her insurance covers Ozempic and Rybelsus, but obtaining a preauthorization is necessary. However, she expresses a reluctance to undergo injection-based medication and is aware that Rybelsus is the only one available in oral dosage form. She provided a phone number from her insurance to commence the preauthorization process. Importantly, her insurance is informed that the preauthorization pertains to weight loss medications and not for diabetes. She was seen previously for a viral syndrome that proved challenging to resolve. During that time, she was experiencing ear pain. She expressed concern about her ear during the visit and conveyed the need for an antibiotic. However, the healthcare provider who attended to her indicated that she would not be prescribed one. Presently, she continues to experience intermittent right ear pain. She denies any symptoms such as rhinorrhea, postnasal drip, or sinus pain. In the past, she was prescribed a Z-Javier, which proved to be effective. The patient presents with elevated blood pressure during the office visit. She does not routinely monitor her blood pressure at home; however, per telephonic advice from an insurance company nurse, she has been instructed to initiate home monitoring 2-3 times weekly. She is actively monitoring her sodium intake. She denies chest pain, palpitations, or visual disturbances. The patient reports occasional severe headaches, managed with migraine medication. The most recent severe headache occurred a couple of days ago and resolved with medication. Relevant bloodwork has been previously conducted. The patient has previously declined colon cancer screening. She denies a family history of colon cancer, alterations in bowel habits, hemorrhoids, or hematochezia. While expressing consideration for colon cancer screening, no definitive decision has been made. For fibromyalgia management, she is consistently using Percocet. Experiencing variable symptomatology with good and bad days, she finds Percocet effective in pain control. The patient is currently on Eliquis for deep vein thrombosis in her right leg. She suffered a fall while placing a blanket in her dog's cage, experiencing a muscle cramp in the region of the previous blood clot, causing pain for four days. She denies discoloration or edema in the right leg but reports occasional cramping when lying down. Physical examination did not reveal discoloration or swelling; however, she perceives the sensation as reminiscent of a muscle cramp, persisting for a few days post-fall. The patient requests refills for her albuterol inhaler, Percocet, and hydrochlorothiazide- triamterene. Additionally, her son has extended an invitation for her to accompany him to the gym. Review of Systems PHQ Score Initial Depression Screen Score: 0 SCORE Negative as stated in the HPI. Physical Exam Vitals & Measurements T: 36.6 ?C(Temporal Artery) HR: 84(Peripheral) RR: 18 BP: 138/82 SpO2: 94% HT: 64 in HT: 163 cm WT: 106.4 kg WT: 234.08 lb BMI: 40.05 Constitutional: Well-groomed, well-nourished, no signs of acute distress. HEENT: Head normocephalic, sclera is clear. Cardiothoracic: Heart rate and rhythm is regular strong, normal S1 and S2. No murmurs, rubs, or bruits auscultated. No peripheral edema, peripheral pulses +2 Respiratory: Lung sounds are clear throughout, respirations regular nonlabored. Abdomen/GI: Abdomen soft nondistended. Musculoskeletal: Gait is steady, full range of motion. Integument: No rashes or lesions noted to the exposed skin. Psychiatric: Alert and oriented x 3, pleasant, no mood changes. Assessment/Plan 1. Chronic obstructive pulmonary disease (COPD) (J43.2: Centrilobular emphysema) The importance of the following were all reviewed with the patient: -Take medications as prescribed. - To improve your health we recommend increasing your level of moderate exercise to at least 2.5 hrs per week. For more information, please visit the CDC Exercise and Fitness Recommendations at www.cdc.gov/physical activity/basics/inde x.htm If you are a smoker: -We strongly recommend to quit tobacco use Cigarette smoking harms nearly every organ of the body, causes many diseases, and reduces the health of smokers in general. Quitting smoking lowers your risk for smoking-related diseases and can add years to your life. We encourage you to visit www.smokefree.gov to access helpful resources including free telephone support. If you decide on prescription treatment to help you quit, we would be happy to discuss. She follows up with Dr. Bryan, bull bucker. She is c (more content not included)... Normal [facility] Comment on above: Result Comment: Elec tronically Signed By: Khari MISHRA, BUS PERSON- Yolanda RODRIGUEZ\.br\Date and Time Signed: 07/23/23 15:03 EST\.br\Electronically Co-Signed By: Juan Carlos Xie\.br\Date and Time Co-Signed: 07/22/23 16:13 EST Patient Educationon 07-23-19 Patient Education Nephrology Chronic Kidney Disease, Adult Chronic kidney disease (CKD) occurs when the kidneys are slowly and permanently damaged over a long period of time. The kidneys are a pair of organs that do many important jobs in the body, including: ? Removing waste and extra fluid from the blood to make urine. ? Making hormones that maintain the amount of fluid in tissues and blood vessels. ? Maintaining the right amount of fluids and chemicals in the body. A small amount of kidney damage may not cause problems, but a large amount of damage may make it hard or impossible for the kidneys to work right. Steps must be taken to slow kidney damage or to stop it from getting worse. If steps are not taken, the kidneys may stop working permanently (end-stage renal disease, or ESRD). Most of the time, CKD does not go away, but it can often be controlled. People who have CKD are usually able to live full lives. What are the causes? The most common causes of this condition are diabetes and high blood pressure (hypertension). Other causes include: ? Cardiovascular diseases. These affect the heart and blood vessels. ? Kidney diseases. These include: ? Glomerulonephritis, or inflammation of the tiny filters in the kidneys. ? Interstitial nephritis. This is swelling of the small tubes of the kidneys and of the surrounding structures. ? Polycystic kidney disease, in which clusters of fluid-filled sacs form within the kidneys. ? Renal vascular disease. This includes disorders that affect the arteries and veins of the kidneys. ? Diseases that affect the body's defense system (immune system). ? A problem with urine flow. This may be caused by: ? Kidney stones. ? Cancer. ? An enlarged prostate, in males. ? A kidney infection or urinary tract infection (UTI) that keeps coming back. ? Vasculitis. This is swelling or inflammation of the blood vessels. What increases the risk? Your chances of having kidney disease increase with age. The following factors may make you more likely to develop this condition: ? A family history of kidney disease or kidney failure. Kidney failure means the kidneys can no longer work right. ? Certain genetic diseases. ? Taking medicines often that are damaging to the kidneys. ? Being around or being in contact with toxic substances. ? Obesity. ? A history of tobacco use. What are the signs or symptoms? Symptoms of this condition include: ? Feeling very tired (lethargic) and having less energy. ? Swelling, or edema, of the face, legs, ankles, or feet. ? Nausea or vomiting, or loss of appetite. ? Confusion or trouble concentrating. ? Muscle twitches and cramps, especially in the legs. ? Dry, itchy skin. ? A metallic taste in the mouth. ? Producing less urine, or producing more urine (especially at night). ? Shortness of breath. ? Trouble sleeping. CKD may also result in not having enough red blood cells or hemoglobin in the blood (anemia) or having weak bones (bone disease). Symptoms develop slowly and may not be obvious until the kidney damage becomes severe. It is possible to have kidney disease for years without having symptoms. How is this diagnosed? This condition may be diagnosed based on: ? Blood tests. ? Urine tests. ? Imaging tests, such as an ultrasound or a CT scan. ? A kidney biopsy. This involves removing a sample of kidney tissue to be looked at under a microscope. Results from these tests will help to determine how serious the CKD is. How is this treated? There is no cure for most cases of this condition, but treatment usually relieves symptoms and prevents or slows the worsening of the disease. Treatment may include: ? Diet changes, which may require you to avoid alcohol and foods that are high in salt, potassium, phosphorous, and protein. ? Medicines. These may: ? Lower blood pressure. ? Control blood sugar (glucose). ? Relieve anemia. ? Relieve swelling. ? Protect your bones. ? Improve the balance of salts and minerals in your blood (electrolytes). ? Dialysis, which is a type of treatment that removes toxic waste from the body. It may be needed if you have kidney failure. ? Managing any other conditions that are causing your CKD or making it worse. Follow these instructions at home: Medicines ? Take [id number] and prescription medicines only as told by your health care provider. The amount of some medicines that you take may need to be changed. ? Do not take any new medicines unless approved by your health care provider. Many medicines can make kidney damage worse. ? Do not take any vitamin and mineral supplements unless approved by your health care provider. Many nutritional supplements can make kidney damage worse. Lifestyle ? Do not use any products that contain nicotine or tobacco, such as cigarettes, e-cigarettes, and chewing tobacco. If you need help quitting, ask your (more content not included)... Normal [facility] Ambulatory Visit Summaryon 0 07-22-2023 Ambulatory Visit Summary ROGERS IMANI Whitehead :1965 Visit Date:07/22/2023 Ambulatory Visit Instructions Your Diagnosis Chronic obstructive pulmonary disease (COPD) Hypertension Hyperlipidemia Chronic kidney disease (CKD), stage IV (severe) Obstructive sleep apnea DJD (degenerative joint disease) Fibromyalgia Anxiety Right leg DVT GERD (gastroesophageal reflux disease) Insomnia Stage 3 chronic kidney disease Class 2 severe obesity due to excess calories with serious comorbidity in adult BMI 39.0-39.9,adult Smoker Your Care Team Attending Physician - Khari MISHRA, Yolanda LUNA Primary Care Physician - Khari MISHRA, Yolanda LUNA This Is Your Medications List acetaminophen-oxycod one (Percocet 5 mg-325 mg oral tablet) albuterol (Albuterol (Eqv-Proventil HFA) 90 mcg/inh inhalation aerosol) hydrochlorothiazide- triamterene (hydrochlorothiazide -triamterene 25 mg-37.5 mg Tab) Contact prescribing physician if questions or concerns APAP/butalbital/caff eine (APAP/butalbital/caf feine 325 mg-50 mg-40 mg oral capsule) Misc Prescription (Nebulizer tubing and mouthpiece) Misc Prescription (Permanent Handicap Paking Placcard (5 year)) albuterol (albuterol 0.083% Inh Nikki 3 mL) allopurinol (allopurinol 300 mg Tab) apixaban (Eliquis 5 mg oral tablet) aspirin budesonide-formotero l (Symbicort 160/4.5 inhalation aerosol with adapter) cetirizine (cetirizine 10 mg oral capsule) cholecalciferol (cholecalciferol 2000 intl units oral tablet (Vitamin D3)) hydrochlorothiazide- triamterene (hydrochlorothiazide -triamterene 25 mg-37.5 mg Cap) lisinopril (lisinopril 5 mg Tab) meclizine (meclizine 25 mg Tab) omeprazole (omeprazole 40 mg Cap-DR) ondansetron (ondansetron 4 mg Tab) pravastatin (pravastatin 10 mg Tab) promethazine (promethazine 25 mg Tab) ropinirole (ropinirole 1 mg Tab) theophylline (theophylline 300 mg ER Tab) Procedures Performed right ultrasound guided core breast biopsy (2017), Cardiac catheterisation (05/2014), Endometrial ablation (2006), section (1991), Laparoscopic cholecystectomy (1986). Discharge Vitals Temperature (Temporal Artery) 36.6 ?C Heart Rate (Peripheral) 84 Respiratory Rate 18 Blood Pressure 140/80 Height 163 cm Height 64 in Weight 106.4 kg Weight 234.08 lb BMI 40.05 What to do next Scheduled Follow-Up Appointments 2023 1:00 PM EDT Where: [facility] PTH INTACTon 11-22-2022 PTH, Intact 20 pg/mL Normal 15-65 [facility] Comment on above: Performed By: #### H H #### [facility] [address] [place] [address] Dr. Madison Adkins GLYCOHEMOGLOBIN A1Con 2022 ADA RECOMMENDATION SEE BELOW Normal [facility] Comment on above: Result Comment: ADA RECOMMENDED LIMIT 4.0 - 6.0 ADA THERAPEUTIC TARGET < 7.0 ACTION SUGGESTED > 7.0 Performed By: #### A 1C #### [facility] [address] [place] [address] Dr. Madison Adkins Glucose [Mass/Vol] 123 mg/dL Normal [facility] Comment on above: Performed By: #### A 1C #### [facility] [address] [place] [address] Dr. Madison Adkins HbA1c (Bld) [Mass fraction] 5.9 % Normal 4.5-6.2 [facility] Comment on above: Performed By: #### A 1C #### [facility] [address] [place] [address] Dr. Madison Adkins HEMOGRAM AND PLATELon 2022 Hematocrit (Bld) [Volume fraction] 41.7 % Normal 36.0-48.0 [facility] Comment on above: Performed By: #### H H #### [facility] [address] [place] [address] Dr. Madison Adkins Hemoglobin (Bld) [Mass/Vol] 13.6 g/dL Normal 12.0-16.0 [facility] Comment on above: Performed By: #### H H #### [facility] [address] [place] [address] Dr. Madison Adkins MCH (RBC) [Entitic mass] 31.1 pg Normal 26.7-34.0 [facility] Comment on above: Performed By: #### H H #### [facility] [address] [place] [address] Dr. Madison Adkins MCHC (RBC) [Mass/Vol] 32.6 g/dL Normal 29.9-35.2 [facility] Comment on above: Performed By: #### H H #### [facility] [address] [place] [address] Dr. Madison Adkins MCV (RBC) [Entitic vol] 95.2 fL Normal 81.0-99.0 [facility] Comment on above: Performed By: #### H H #### [facility] [address] [place] [address] Dr. Madison Adkins PLT 256 103/ul Normal 150-450 [facility] Comment on above: Performed By: #### H H #### [facility] [address] [place] [address] Dr. Madison Adkins RBC 4.38 106/ul Normal 4.20-5.40 [facility] Comment on above: Performed By: #### H H #### [facility] [address] [place] [address] Dr. Madison Adkins WBC 7.0 103/ul Normal 4.0-11.0 [facility] Comment on above: Performed By: #### H H #### [facility] [address] [place] [address] Dr. Madison Adkins MAGNESIUMon 11-21-2022 Magnesium [Mass/Vol] 1.7 mg/dL Critically low 1.8-2.4 [facility] Comment on above: Performed By: #### M G, RENAL, URIC #### [facility] [address] [place] [address] Dr. Madison Adkins RENAL FUNCTION PANELon 11-21 Albumin [Mass/Vol] 3.4 g/dL Normal 3.4-5.0 [facility] Comment on above: Performed By: #### M G, RENAL, URIC #### [facility] [address] [address] [address] Madison Adkins Calcium [Mass/Vol] 9.2 mg/dL Normal 8.5-10.1 [facility] Comment on above: Performed By: #### M G, RENAL, URIC #### [facility] [address] [address] [address] Madison Adkins Chloride [Moles/Vol] 103 mmol/L Normal 98-107 [facility] Comment on above: Performed By: #### M G, RENAL, URIC #### [facility] [address] [address] [address] Madison Adkins CO2 [Moles/Vol] 25.5 mmol/L Normal 21.0-32.0 [facility] Comment on above: Performed By: #### M G, RENAL, URIC #### [facility] [address] [address] [address] Madison Adkins Creatinine [Mass/Vol] 2.14 mg/dL Critically high 0.55-1.02 [facility] Comment on above: Performed By: #### M G, RENAL, URIC #### [facility] [address] [address] [address] Madison Adkins EGFR-AF FIJIAN 29 mL/min/1.73m2 Critically low >=60 [facility] Comment on above: Performed By: #### M G, RENAL, URIC #### [facility] [address] [address] [address] Madison Adkins EGFR-NON AF FIJIAN 24 mL/min/1.73m2 Critically low >=60 [facility] Comment on above: Performed By: #### M G, RENAL, URIC #### [facility] [address] [address] [address] Madison Adkins Glucose [Mass/Vol] 107 mg/dL Critically high 74-106 [facility] Comment on above: Performed By: #### M G, RENAL, URIC #### [facility] [address] [address] [address] Madison Adkins Phosphate [Mass/Vol] 3.6 mg/dL Normal 2.6-4.7 [facility] Comment on above: Performed By: #### M G, RENAL, URIC #### [facility] [address] [place] [address] Dr. Madison Adkins Potassium [Moles/Vol] 4.3 mmol/L Normal 3.5-5.1 [facility] Comment on above: Performed By: #### M G, RENAL, URIC #### [facility] [address] [place] [address] Dr. Madison Adkins Sodium [Moles/Vol] 139 mmol/L Normal 136-145 [facility] Comment on above: Performed By: #### M G, RENAL, URIC #### [facility] [address] [place] [address] Dr. Madison Adkins Urea nitrogen [Mass/Vol] 36.0 mg/dL Critically high 7.0-18.0 [facility] Comment on above: Performed By: #### M G, RENAL, URIC #### [facility] [address] [place] [address] Dr. Madison Adkins UA RANDOM W/MICROSCOPICon BACTERIA TRACE Abnormal NONE SEEN [facility] Comment on above: Performed By: #### H H #### [facility] [address] [place] [address] Dr. Madison Adkins Bilirubin Ql (U) Negative Normal NEGATIVE [facility] Comment on above: Performed By: #### H H #### [facility] [address] [place] [address] Dr. Madison Adkins CAST NONE SEEN Normal NONE SEEN [facility] Comment on above: Performed By: #### H H #### [facility] [address] [place] [address] Dr. Madison Adkins Clarity (U) CLEAR Normal CLEAR [facility] Comment on above: Performed By: #### H H #### [facility] [address] [place] [address] Dr. Madison Adkins Color (U) LT. YELLOW Normal YELLOW [facility] Comment on above: Performed By: #### H H #### [facility] [address] [place] [address] Dr. Madison Adkins Crystals LM Nom (Urine sed) NONE SEEN Normal NONE SEEN [facility] Comment on above: Performed By: #### H H #### [facility] [address] [place] [address] Dr. Madison Adkins Epithelial cells LM Ql (Urine sed) MODERATE Abnormal NONE SEEN /RARE [facility] Comment on above: Performed By: #### H H #### [facility] [address] [place] [address] Dr. Madison Adkins Glucose Ql (U) Negative Normal NEGATIVE [facility] Comment on above: Performed By: #### H H #### [facility] [address] [place] [address] Dr. Madison Adkins Hemoglobin Ql (U) TRACE-INTACT Abnormal NEGATIVE [facility] Comment on above: Performed By: #### H H #### [facility] [address] [place] [address] Dr. Madison Adkins Ketones Ql (U) Negative Normal NEGATIVE [facility] Comment on above: Performed By: #### H H #### [facility] [address] [place] [address] Dr. Madison Adkins LEUKOCYTES Negative Normal NEGATIVE [facility] Comment on above: Performed By: #### H H #### [facility] [address] [place] [address] Dr. Madison Adkins MUCOUS NONE SEEN Normal NONE SEEN [facility] Comment on above: Performed By: #### H H #### [facility] [address] [place] [address] Dr. Madison Adkins Nitrite Ql (U) Negative Normal NEGATIVE [facility] Comment on above: Performed By: #### H H #### [facility] [address] [place] [address] Dr. Madison Adkins pH (U) 5.5 [pH] Normal 5-9 [facility] Comment on above: Performed By: #### H H #### [facility] [address] [place] [address] Dr. Madison Adkins RBC 0-2 Normal 0-2 [facility] Comment on above: Performed By: #### H H #### [facility] [address] [place] [address] Dr. Madison Adkins SPEC GRAVITY 1.020 Normal 1.005-<=1.025 [facility] Comment on above: Performed By: #### H H #### [facility] [address] [place] [address] Dr. Madison Adkins UA PROTEIN Negative Normal NEGATIVE/ TRACE [facility] Comment on above: Performed By: #### H H #### [facility] [address] [place] [address] Dr. Madison Adkins Urobilinogen Qn (U) 0.2 {Shannan'U}/dL Normal 0.2 - 1.0 [facility] Comment on above: Performed By: #### H H #### [facility] [address] [place] [address] Dr. Madison Adkins WBC NONE SEEN Normal NONE SEEN [facility] Comment on above: Performed By: #### H H #### [facility] [address] [place] [address] Dr. Madison Adkins URIC ACID SERUMon 11-21-2022 Urate [Mass/Vol] 7.3 mg/dL Critically high 2.6-6.0 [facility] Comment on above: Performed By: #### M G, RENAL, URIC #### [facility] [address] [place] [address] Dr. Madison Adkins URINE T PROTEIN CREAT RATIOo n 11-21-2022 Protein (U) [Mass/Vol] 17.3 mg/dL Critically high <=12.0 [facility] Comment on above: Performed By: #### U RTPCR #### [facility] [address] [place] [address] Dr. Madison Adkins UR PROT CREAT RAT 0.18 Normal [facility] Comment on above: Performed By: #### U RTPCR #### [facility] [address] [place] [address] Dr. Madison Adkins URINE CREAT 95.50 mg/dL Normal 20.00-300.00 [facility] Comment on above: Performed By: #### U RTPCR #### [facility] [address] [place] [address] Dr. Madison Adkins VITAMIN D 25 OHon 11-21-2022 VIT D 25-OH 76.7 ng/mL Normal [facility] Comment on above: Performed By: #### V ITAD #### [facility] [address] [place] [address] Dr. Madison Adkins VIT D RANGES SEE BELOW Normal [facility] Comment on above: Result Comment: <20 ng/mL Vit D deficient 20 - <30 ng/mL Vit D insufficient 30 - 100 ng/mL Vit D sufficient >100 ng/mL Potential Toxicity Performed By: #### V ITAD #### [facility] [address] [place] [address] Dr. Madison Adkins PTH INTACTon 04-30-2022 PTH, Intact 45 pg/mL Normal 15-65 [facility] Comment on above: Performed By: #### P THINT #### [facility] [address] [place] [address] Dr. Madison Adkins HEMOGRAM AND PLATELon 2021 Hematocrit (Bld) [Volume fraction] 40.1 % Normal 36.0-48.0 [facility] Comment on above: Performed By: #### H H #### [facility] [address] [place] [address] Dr. Madison Adkins Hemoglobin (Bld) [Mass/Vol] 13.2 g/dL Normal 12.0-16.0 [facility] Comment on above: Performed By: #### H H #### [facility] [address] [place] [address] Dr. Madison Adkins MCH (RBC) [Entitic mass] 31.5 pg Normal 26.7-34.0 [facility] Comment on above: Performed By: #### H H #### [facility] [address] [place] [address] Dr. Madison Adkins MCHC (RBC) [Mass/Vol] 32.9 g/dL Normal 29.9-35.2 [facility] Comment on above: Performed By: #### H H #### [facility] [address] [address] [address] Madison Adkins MCV (RBC) [Entitic vol] 95.7 fL Normal 81.0-99.0 [facility] Comment on above: Performed By: #### H H #### [facility] [address] [address] [address] Madison Adkins PLT 277 103/ul Normal 150-450 [facility] Comment on above: Performed By: #### H H #### [facility] [address] [address] [address] Madison Adkins RBC 4.19 106/ul Critically low 4.20-5.40 [facility] Comment on above: Performed By: #### H H #### [facility] [address] [place] [address] Dr. Madison Adkins WBC 8.9 103/ul Normal 4.0-11.0 [facility] Comment on above: Performed By: #### H H #### [facility] [address] [place] [address] Dr. Madison Adkins MAGNESIUMon 04-29-2022 Magnesium [Mass/Vol] 1.7 mg/dL Critically low 1.8-2.4 [facility] Comment on above: Performed By: #### H H #### [facility] [address] [place] [address] Dr. Madison Adkins RENAL FUNCTION PANELon 04-29 Albumin [Mass/Vol] 3.6 g/dL Normal 3.4-5.0 [facility] Comment on above: Performed By: #### H H #### [facility] [address] [place] [address] Dr. Madison Adkins Calcium [Mass/Vol] 9.0 mg/dL Normal 8.5-10.1 [facility] Comment on above: Performed By: #### H H #### [facility] [address] [place] [address] Dr. Madison Adkins Chloride [Moles/Vol] 107 mmol/L Normal 98-107 [facility] Comment on above: Performed By: #### H H #### [facility] [address] [address] [address] Madison Adkins CO2 [Moles/Vol] 28.2 mmol/L Normal 21.0-32.0 [facility] Comment on above: Performed By: #### H H #### [facility] [address] [address] [address] Madison Adkins Creatinine [Mass/Vol] 1.84 mg/dL Critically high 0.55-1.02 [facility] Comment on above: Performed By: #### H H #### [facility] [address] [address] [address] Madison Adkins EGFR-AF FIJIAN 34 mL/min/1.73m2 Critically low >=60 [facility] Comment on above: Performed By: #### H H #### [facility] [address] [address] [address] Madison Adkins EGFR-NON AF FIJIAN 28 mL/min/1.73m2 Critically low >=60 [facility] Comment on above: Performed By: #### H H #### [facility] [address] [address] [address] Madison Adkins Glucose [Mass/Vol] 106 mg/dL Normal 74-106 [facility] Comment on above: Performed By: #### H H #### [facility] [address] [address] [address] Madison Adkins Phosphate [Mass/Vol] 3.3 mg/dL Normal 2.6-4.7 [facility] Comment on above: Performed By: #### H H #### [facility] [address] [address] [address] Madison Adkins Potassium [Moles/Vol] 4.7 mmol/L Normal 3.5-5.1 [facility] Comment on above: Performed By: #### H H #### [facility] [address] [address] [address] Madison Adkins Sodium [Moles/Vol] 142 mmol/L Normal 136-145 [facility] Comment on above: Performed By: #### H H #### [facility] [address] [address] [address] Madison Adkins Urea nitrogen [Mass/Vol] 31.0 mg/dL Critically high 7.0-18.0 [facility] Comment on above: Performed By: #### H H #### [facility] [address] [place] [address] Dr. Madison Adkins UA RANDOM W/MICROSCOPICon BACTERIA NONE SEEN Normal NONE SEEN [facility] Comment on above: Performed By: #### U AMIC #### [facility] [address] [place] [address] Dr. Madison Adkins Bilirubin Ql (U) Negative Normal NEGATIVE [facility] Comment on above: Performed By: #### U AMIC #### [facility] [address] [place] [address] Dr. Madison Adkins CAST NONE SEEN Normal NONE SEEN [facility] Comment on above: Performed By: #### U AMIC #### [facility] [address] [place] [address] Dr. Madison Adkins Clarity (U) CLEAR Normal CLEAR [facility] Comment on above: Performed By: #### U AMIC #### [facility] [address] [place] [address] Dr. Madison Adkins Color (U) LT. YELLOW Normal YELLOW [facility] Comment on above: Performed By: #### U AMIC #### [facility] [address] [place] [address] Dr. Madison Adkins Crystals LM Nom (Urine sed) NONE SEEN Normal NONE SEEN [facility] Comment on above: Performed By: #### U AMIC #### [facility] [address] [place] [address] Dr. Madison Adkins Epithelial cells LM Ql (Urine sed) MODERATE Abnormal NONE SEEN /RARE [facility] Comment on above: Performed By: #### U AMIC #### [facility] [address] [place] [address] Dr. Madison Adkins Glucose Ql (U) Negative Normal NEGATIVE [facility] Comment on above: Performed By: #### U AMIC #### [facility] [address] [address] [address] Madison Adkins Hemoglobin Ql (U) Negative Normal NEGATIVE [facility] Comment on above: Performed By: #### U AMIC #### [facility] [address] [address] [address] Madison Adikns Ketones Ql (U) Negative Normal NEGATIVE [facility] Comment on above: Performed By: #### U AMIC #### [facility] [address] [place] [address] Dr. Madison Adkins LEUKOCYTES Negative Normal NEGATIVE [facility] Comment on above: Performed By: #### U AMIC #### [facility] [address] [place] [address] Dr. Madison Adkins MUCOUS NONE SEEN Normal NONE SEEN [facility] Comment on above: Performed By: #### U AMIC #### [facility] [address] [place] [address] Dr. Madison Adkins Nitrite Ql (U) Negative Normal NEGATIVE [facility] Comment on above: Performed By: #### U AMIC #### [facility] [address] [place] [address] Dr. Madison Adkins pH (U) 6.0 [pH] Normal 5-9 [facility] Comment on above: Performed By: #### U AMIC #### [facility] [address] [place] [address] Dr. Madison Adkins RBC NONE SEEN Abnormal 0-2 [facility] Comment on above: Performed By: #### U AMIC #### [facility] [address] [place] [address] Dr. Madison Adkins SPEC GRAVITY 1.015 Normal 1.005-<=1.025 [facility] Comment on above: Performed By: #### U AMIC #### [facility] [address] [place] [address] Dr. Madison Adkins UA PROTEIN Negative Normal NEGATIVE/ TRACE [facility] Comment on above: Performed By: #### U AMIC #### [facility] [address] [place] [address] Dr. Madison Adkins Urobilinogen Qn (U) 0.2 {Shannan'U}/dL Normal 0.2 - 1.0 [facility] Comment on above: Performed By: #### U AMIC #### [facility] [address] [place] [address] Dr. Madison Adkins WBC NONE SEEN Normal NONE SEEN [facility] Comment on above: Performed By: #### U AMIC #### [facility] [address] [place] [address] Dr. Madison Adkins URIC ACID SERUMon 04-29-2022 Urate [Mass/Vol] 8.3 mg/dL Critically high 2.6-6.0 [facility] Comment on above: Performed By: #### H H #### [facility] [address] [place] [address] Dr. Madison Adkins URINE T PROTEIN CREAT RATIOo n 04-29-2022 Protein (U) [Mass/Vol] 14.1 mg/dL Critically high <=12.0 [facility] Comment on above: Performed By: #### H H #### [facility] [address] [place] [address] Dr. Madison Adkins UR PROT CREAT RAT 0.18 Normal [facility] Comment on above: Performed By: #### H H #### [facility] [address] [place] [address] Dr. Madison Adkins URINE CREAT 77.32 mg/dL Normal 20.00-300.00 [facility] Comment on above: Performed By: #### H H #### [facility] [address] [place] [address] Dr. Madison Adkins VITAMIN D 25 OHon 04-29-2022 VIT D 25-OH 51.7 ng/mL Normal [facility] Comment on above: Performed By: #### H H #### [facility] [address] [place] [address] Dr. Madison Adkins VIT D RANGES SEE BELOW Normal [facility] Comment on above: Result Comment: <20 ng/mL Vit D deficient 20 - <30 ng/mL Vit D insufficient 30 - 100 ng/mL Vit D sufficient >100 ng/mL Potential Toxicity Performed By: #### H H #### [facility] [address] [address] [address] chest wo kenia 05-06-2021 CT chest wo con [facility] [place] [address] [place], [place] [id number] CT Scan Report Signed Patient: Imani Mccloud MR#: [id number] : 1965 Acct:[id number] Age/Sex: 55 / F ADM Date: 05/06/21 Loc: [facility] Room: Type: [facility] Attending Dr: Latosha Bryan MD Ordering Provider: Latosha Bryan MD Date of Service: 05/06/21 CT/CT chest wo con: [id number] Copies to: Latosha Bryan MD CT CHEST WITHOUT CONTRAST CLINICAL DATA: Follow-up abnormal outside chest x-ray showing atelectasis or infiltrate at the left base COMPARISON: Chest x-ray [facility] 03/13/2021 Spiral axial unenhanced images were obtained through the chest. Images were reviewed using both narrow and wide window settings. This CT exam was performed using one or more following dose reduction techniques: Automated exposure control, adjustment of the mA and/or kV according to patient size, or use of iterative reconstruction technique. The heart is within normal limits for size. There are prominent pericardial fat pads. No pericardial effusion is present. No aortic aneurysm is seen. No enlarged lymph nodes are noted. There is a hiatal hernia that contains mesenteric fat. There is endplate spurring throughout the spine. No consolidation, pleural effusion or pneumothorax is seen. There are couple sites of minor nodular thickening at the major fissure on the left. There is no other pulmonary nodularity. Limited cuts through the upper abdomen show a right renal hypodensity which may be a cyst. There is slight adrenal limb thickening. CT/CT chest wo con IMPRESSION: NO ACUTE INTRATHORACIC FINDINGS. Impression dictated by: Elyssa Adams M.D.05/06/2021 4:35 PM Dictation Location: [place] [address] Transcribed By: [facility] 05/06/21 1635 Dictated By: Elyssa Adams MD 05/06/21 1618 Signed By: 05/06/[address] [facility] PFT pre/post spirometryon PFT pre/post spirometry [facility] [place] [address] [place] [address] Pulmonary Function Signed Patient: Imani Mccloud MR#: [id number] : 1965 Acct:[id number] Age/Sex: 55 / F ADM Date: 04/29/21 Loc: RT Room: Type: [facility] Attending Dr: Sohail Murphy MD Ordering Provider: Sohail Murphy MD Date of Service: 04/29/21 Accession #: Copies to: MD Yon Paul MD HISTORY: This is a 55-year-old, 64-inch tall, 230-pound female, smoker, referred by Dr. Murphy with a diagnosis of nicotine dependence. The patient had adequate durations of exhalation, which were equivalent and appropriate appearances for the flow volume loops with slight improvement in expiratory flow after administration of bronchodilators. Overall, these appear to be technically adequate studies. RESULTS: Prebronchodilator FEV1 to forced vital capacity ratio is reduced at 64% with a low normal forced vital capacity of 2.76 L or 81% predicted, moderate reduction in the FEV1 to 1.78 L or 67% predicted. The [id number]% is markedly reduced at 0.95 L/sec or 38% predicted. After administration of bronchodilators, there was an insignificant 10% improvement in the forced vital capacity, but there was a significant 12% improvement in the FEV1 to 1.99 L or 75% predicted. The XPB67-10% improved, though insignificantly by 12% to 1.06 L/sec or 43% predicted. Overall, these studies reveal evidence of moderate obstruction with evidence of a bronchodilator response with residual obstruction being mild. 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 I do not believe there is high suspicion for restriction, but if there is concern, measurement of static lung volumes would be appropriate. There are no prior studies available for comparison. Clinical correlation is recommended. Transcribed By: GAUNAKO 04/30/21 1109 Dictated By: Yon Martinez MD 04/29/21 1801 Signed By: 04/30/[address] [facility] Vital Signs Date Time Vital Sign Value Performing Clinician Facility 03-07-2024 13:20-0400 Body height 162.56 cm [facility] 03-07-2024 13:20-0400 Body mass index (BMI) [Ratio] 38.5 kg/m2 [facility] 03-07-2024 13:20-0400 Body temperature 97.7 [degF] [facility] 03-07-2024 13:20-0400 Body weight 101.77 kg [facility] 03-07-2024 13:20-0400 Diastolic blood pressure 92 mm[Hg] [facility] 03-07-2024 13:20-0400 Heart rate 95 /min [facility] 03-07-2024 13:20-0400 Respiratory rate 20 /min [facility] 03-07-2024 13:20-0400 SaO2% (BldA) [Mass fraction] 97 % [facility] 03-07-2024 13:20-0400 Systolic blood pressure 124 mm[Hg] [facility] 02-15-2024 15:190400 Body height 162.56 cm [facility] 02-15-2024 15:19-0400 Body mass index (BMI) [Ratio] 38.7 kg/m2 [facility] 02-15-2024 15:19-0400 Body temperature 96.5 [degF] [facility] 02-15-2024 15:19-0400 Body weight 102.22 kg [facility] 02-15-2024 15:19-0400 Diastolic blood pressure 83 mm[Hg] [facility] 02-15-2024 15:19-0400 Heart rate 86 /min [facility] 02-15-2024 15:19-0400 Respiratory rate 16 /min [facility] 02-15-2024 15:19-0400 SaO2% (BldA) [Mass fraction] 96 % [facility] 02-15-2024 15:19-0400 Systolic blood pressure 120 mm[Hg] [facility] 09-29-2023 15:22-0400 Body height 162.56 cm [facility] 09-29-2023 15:22-0400 Body mass index (BMI) [Ratio] 40 kg/m2 [facility] 09-29-2023 15:22-0400 Body temperature 97.4 [degF] [facility] 09-29-2023 15:22-0400 Body weight 105.8 kg [facility] 09-29-2023 15:22-0400 Diastolic blood pressure 79 mm[Hg] [facility] 09-29-2023 15:22-0400 Heart rate 91 /min [facility] 09-29-2023 15:22-0400 Respiratory rate 16 /min [facility] 09-29-2023 15:22-0400 SaO2% (BldA) [Mass fraction] 97 % [facility] 09-29-2023 15:22-0400 Systolic blood pressure 127 mm[Hg] [facility] 05-26-2023 16:00-0500 Body height 162.56 cm Sohail Carito Other [facility] 05-26-2023 16:00-0500 Body mass index (BMI) [Ratio] 40.13 kg/m2 Sohail Carito Other [facility] Other 05-26-2023 16:00-0500 Body temperature 96.7 [degF] Sohail Carito Other [facility] Other 05-26-2023 16:00-0500 Body weight 106.05 kg Sohail Carito Other [facility] Other 05-26-2023 16:00-0500 Diastolic blood pressure 84 mm[Hg] Sohail Carito Other [facility] Other 05-26-2023 16:00-0500 Respiratory rate 20 /min Sohail Carito Other [facility] Other 05-26-2023 16:00-0500 SaO2% (BldA) [Mass fraction] 97 % Sohail Carito Other [facility] Other 05-26-2023 16:00-0500 Systolic blood pressure 139 mm[Hg] Sohail Carito Other [facility] Other 11-27-2022 12:20-0400 Body height 162.56 cm Sohail Carito Other [facility] Other 11-27-2022 12:20-0400 Body mass index (BMI) [Ratio] 41.64 kg/m2 Sohail Carito Other [facility] Other 11-27-2022 12:20-0400 Body temperature 97.2 [degF] Sohail Carito Other [facility] Other 11-27-2022 12:20-0400 Body weight 110.04 kg Sohail Carito Other [facility] Other 11-27-2022 12:20-0400 Diastolic blood pressure 80 mm[Hg] Sohail Carito Other [facility] Other 11-27-2022 12:20-0400 Respiratory rate 20 /min Sohail Carito Other [facility] Other 11-27-2022 12:20-0400 SaO2% (BldA) [Mass fraction] 96 % Sohail Carito Other [facility] Other 11-27-2022 12:20-0400 Systolic blood pressure 130 mm[Hg] Sohail Carito Other [facility] Other 05-08-2022 13:20-0500 Body height 162.56 cm Sohail Carito Other [facility] Other 05-08-2022 13:20-0500 Body mass index (BMI) [Ratio] 41.6 kg/m2 Sohail Carito Other [facility] Other 05-08-2022 13:20-0500 Body temperature 96.8 [degF] Sohail Carito Other [facility] Other 05-08-2022 13:20-0500 Body weight 109.95 kg Sohail Carito Other [facility] Other 05-08-2022 13:20-0500 Diastolic blood pressure 80 mm[Hg] Sohail Carito Other [facility] Other 05-08-2022 13:20-0500 Respiratory rate 20 /min Sohail Carito Other [facility] Other 05-08-2022 13:20-0500 SaO2% (BldA) [Mass fraction] 95 % Sohail Carito Other [facility] Other 05-08-2022 13:20-0500 Systolic blood pressure 133 mm[Hg] Sohail Carito Other [facility] Other 01-14-2022 15:15-0400 Body height 162.56 cm Latosha Arabellajolanta Other [facility] Other 01-14-2022 15:15-0400 Body mass index (BMI) [Ratio] 41.02 kg/m2 Latosha Bellban Other [facility] Other 01-14-2022 15:15-0400 Body temperature 97.1 [degF] Latosha Bellban Other [facility] Other 01-14-2022 15:15-0400 Body weight 108.41 kg Latosha Bellban Other [facility] Other 01-14-2022 15:15-0400 Diastolic blood pressure 90 mm[Hg] Latosha Bellban Other [facility] Other 01-14-2022 15:15-0400 Respiratory rate 20 /min Latosha Bryan Other [facility] Other 01-14-2022 15:15-0400 SaO2% (BldA) [Mass fraction] 98 % Latosha Bryan Other [facility] Other 01-14-2022 15:15-0400 Systolic blood pressure 132 mm[Hg] Latosha Bellban Other [facility] Other 10-10-2021 13:00-0400 Body height 162.56 cm Sohail Carito Other [facility] Other 10-10-2021 13:00-0400 Body mass index (BMI) [Ratio] 41.88 kg/m2 Sohail Carito Other [facility] Other 10-10-2021 13:00-0400 Body temperature 96.8 [degF] Sohail Carito Other [facility] Other 10-10-2021 13:00-0400 Body weight 110.68 kg Sohail Carito Other [facility] Other 10-10-2021 13:00-0400 Diastolic blood pressure 80 mm[Hg] Sohail Carito Other [facility] Other 10-10-2021 13:00-0400 Respiratory rate 20 /min Sohail Carito Other [facility] Other 10-10-2021 13:00-0400 SaO2% (BldA) [Mass fraction] 97 % Sohail Carito Other [facility] Other 10-10-2021 13:00-0400 Systolic blood pressure 139 mm[Hg] Sohail Carito Other [facility] Other 03-28-2021 11:30-0400 Body height 162.56 cm Latosha Belljolanta Other [facility] Other 03-28-2021 11:30-0400 Body mass index (BMI) [Ratio] 39.65 kg/m2 [place] Bryan Other [facility] Other 03-28-2021 11:30-0400 Body temperature 96.9 [degF] Latosha Bryan Other [facility] Other 03-28-2021 11:30-0400 Body weight 104.78 kg [place] Bryan Other [facility] Other 03-28-2021 11:30-0400 Diastolic blood pressure 80 mm[Hg] Latosha Bryan Other [facility] Other 03-28-2021 11:30-0400 Respiratory rate 20 /min Latosha Bryan Other [facility] Other 03-28-2021 11:30-0400 SaO2% (BldA) [Mass fraction] 98 % Latosha Bryan Other [facility] Other 03-28-2021 11:30-0400 Systolic blood pressure 114 mm[Hg] Latosha Bryan Other [facility] Other Encounters Encounter Date Encounter Type Care Provider Facility Start: 09-05-2024 ambulatory [facility]-MICHAEL Lucia Facility:[facility] Start: 06-07-2024 End: 06-07-2024 ambulatory [facility]MICHAEL Lucia [facility]: [facility] Start: 03-10-2024 ambulatory [facility]MICHAEL Lucia Facility: [facility] Start: 03-07-2024 End: 03-07-2024 ambulatory [facility] Work Phone: Start: 03-07-2024 End: 03-07-2024 Patient encounter procedure [facility] Pulmonary Disease Work Phone: Start: 02-15-2024 End: 02-15-2024 Patient encounter procedure [facility] Nephrology Work Phone: Start: 02-15-2024 End: 02-15-2024 ambulatory [facility] PERSON-MICHAEL Lucia [facility] Work Phone: Start: 02-11-2024 Non-patient / Non-visit [facility] Work Phone: Start: 01-12-2024 End: 01-12-2024 ambulatory [facility]MICHAEL Lucia Facility:[facility] Start: 10-13-2023 End: 10-13-2023 ambulatory [facility]-MICHAEL Lucia Facility:[facility] Start: 09-29-2023 End: 09-29-2023 ambulatory [facility] Work Phone: Start: 09-29-2023 End: 09-29-2023 Patient encounter procedure [facility] Nephrology Work Phone: Start: 09-28-2023 Non-patient / Non-visit [facility] Work Phone: Start: 09-21-2023 ambulatory [facility] P[facility]-MICHAEL Lucia Facility:[facility] Start: 08-21-2023 End: 08-21-2023 ambulatory JEREMY MISHRA Facility:[facility] Start: 07-22-2023 End: 07-22-2023 ambulatory JEREMY MISHRA Facility:[facility] Start: 05-26-2023 End: 05-26-2023 ambulatory Sohail Carito Other [facility] Other Start: 05-26-2023 Office outpatient vi sit 25 minutes Sohail Carito [facility] Start: 05-14-2023 End: 05-14-2023 ambulatory Sohail Carito Other [facility] Other Start: 05-14-2023 Telephone encounter Sohail Carito [facility] Start: 11-27-2022 End: 11-27-2022 ambulatory Sohail Carito Other [facility] Other Start: 11-27-2022 Office outpatient vi sit 25 minutes Sohail Carito [facility] Start: 11-21-2022 End: 11-22-2022 ambulatory SOHAIL CARITO Facility: Start: 05-08-2022 End: 05-08-2022 ambulatory Sohail Carito Other [facility] Other Start: 05-08-2022 Office outpatient vi sit 25 minutes Sohail Carito [facility] Start: 04-29-2022 End: 04-30-2022 ambulatory SOHAIL CARITO Facility: Start: 01-14-2022 End: 01-14-2022 ambulatory Kamal Chaban Other [facility] Other Start: 01-14-2022 Office outpatient vi sit 15 minutes Kamal Chaban [facility] Start: 10-10-2021 End: 10-10-2021 ambulatory Sohail Carito Other [facility] Other Start: 10-10-2021 Office outpatient vi sit 25 minutes Sohail Carito [facility] Start: 06-05-2021 End: 06-05-2021 ambulatory Carissa Alejandro Other [facility] Other Start: 06-05-2021 Telephone encounter Carissa Alejandro [facility] Start: 03-28-2021 Office outpatient ne w 45 minutes Kamal Chaban [facility] Plan of Treatment Date Care Activity Detail Author Renal function 1999 panel - Serum or Plasma [facility] C enter Renal function 1999 panel - Serum or Plasma [facility] enter [facility] Immunizations Immunization Date Immunization Notes Care Provider Mila chaney 02-11-2017 Ceci Bryan Other [facility] Other 02-04-2017 Ceci Bryan Other [facility] Other 01-28-2017 Ceci Bryan Other [facility] Other 01-21-2017 Ceci Bryan Other [facility] Other 01-07-2017 SUPARTZ FX SODIUM HYALURONATE Latosha Bryan Other [facility] Other 08-05-2016 Kenalog -40 mg Latosha Bryan Other [facility] Other Payers Date Payer Category Payer Unknown [id number] 2.16.84 [id number] 1965 Unknown [id number] 2.16.84 [id number] 1965 Unknown [id number] 2.16.84 [id number] 1965 Unknown [id number] 2.16.8 [id number] 1963 Unknown [id number] 2.16.8 [id number] 1963 Unknown [id number] 2.16.8 [id number] 1963 Unknown [id number] 2.16.8 [id number] 1963 Unknown [id number] 2.16.8 [id number] 1963 Unknown [id number] 2.16.8 [id number] 1965 Unknown [id number] 2.16.8 [id number] 1965 Unknown [id number] 2.16.8 [id number] 1965 Unknown [id number] 2.16.8 [id number] 1961 Medicare [id number] 2. [id number] Medicaid [employer] [id number] [facility] [id number] Medicare Medicare [id number] 1 [id number] Self-pay Self Pay [id number] Social History Date Type Detail Facility Sex Assigned At [facility] Other Start: 09-29-2023 End: 03-07-2024 Tobacco smoking status [facility] Ex-smoker (finding) [facility] Start: 1965 Sex Assigned At Female F [facility] Clinical Notes 03-28-2021 to 06-07-2024 Note Date & Type Note Facility 06-07-2024 Note Patient Education Cardiovascular Hypertension, Adult High blood pressure (hypertension) is when the force of blood pumping through the arteries is too strong. The arteries are the blood vessels that carry blood from the heart throughout the body. Hypertension forces the heart to work harder to pump blood and may cause arteries to become narrow or stiff. Untreated or uncontrolled hypertension can lead to a heart attack, heart failure, a stroke, kidney disease, and other problems. A blood pressure reading consists of a higher number over a lower number. Ideally, your blood pressure should be below 120/80. The first ( top ) number is called the systolic pressure. It is a measure of the pressure in your arteries as your heart beats. The second ( bottom ) number is called the diastolic pressure. It is a measure of the pressure in your arteries as the heart relaxes. What are the causes? The exact cause of this condition is not known. There are some conditions that result in high blood pressure. What increases the risk? Certain factors may make you more likely to develop high blood pressure. Some of these risk factors are under your control, including: ??? Smoking. ??? Not getting enough exercise or physical activity. ??? Being overweight. ??? Having too much fat, sugar, calories, or salt (sodium) in your diet. ??? Drinking too much alcohol. Other risk factors include: ??? Having a personal history of heart disease, diabetes, high cholesterol, or kidney disease. ??? Stress. ??? Having a family history of high blood pressure and high cholesterol. ??? Having obstructive sleep apnea. ??? Age. The risk increases with age. What are the signs or symptoms? High blood pressure may not cause symptoms. Very high blood pressure (hypertensive crisis) may cause: ??? Headache. ??? Fast or irregular heartbeats (palpitations). ??? Shortness of breath. ??? Nosebleed. ??? Nausea and vomiting. ??? Vision changes. ??? Severe chest pain, dizziness, and seizures. How is this diagnosed? This condition is diagnosed by measuring your blood pressure while you are seated, with your arm resting on a flat surface, your legs uncrossed, and your feet flat on the floor. The cuff of the blood pressure monitor will be placed directly against the skin of your upper arm at the level of your heart. Blood pressure should be measured at least twice using the same arm. Certain conditions can cause a difference in blood pressure between your right and left arms. If you have a high blood pressure reading during one visit or you have normal blood pressure with other risk factors, you may be asked to: ??? Return on a different day to have your blood pressure checked again. ??? Monitor your blood pressure at home for 1 week or longer. If you are diagnosed with hypertension, you may have other blood or imaging tests to help your health care provider understand your overall risk for other conditions. How is this treated? This condition is treated by making healthy lifestyle changes, such as eating healthy foods, exercising more, and reducing your alcohol intake. You may be referred for counseling on a healthy diet and physical activity. Your health care provider may prescribe medicine if lifestyle changes are not enough to get your blood pressure under control and if: ??? Your systolic blood pressure is above 130. ??? Your diastolic blood pressure is above 80. Your personal target blood pressure may vary depending on your medical conditions, your age, and other factors. Follow these instructions at home: Eating and drinking ??? Eat a diet that is high in fiber and potassium, and low in sodium, added sugar, and fat. An example of this eating plan is called the DASH diet. DASH stands for Dietary Approaches to Stop Hypertension. To eat this way: ? Eat plenty of fresh fruits and vegetables. Try to fill one half of your plate at each meal with fruits and vegetables. ? Eat whole grains, such as whole-wheat pasta, brown rice, or whole-grain bread. Fill about one fourth of your plate with whole grains. ? Eat or drink low-fat dairy products, such as skim milk or low-fat yogurt. ? Avoid fatty cuts of meat, processed or cured meats, and poultry with skin. Fill about one fourth of your plate with lean proteins, such as fish, chicken without skin, beans, eggs, or tofu. ? Avoid pre-made and processed foods. These tend to be higher in sodium, added sugar, and fat. ??? Reduce your daily sodium intake. Many people with hypertension should eat less than 1,500 mg of sodium a day. ??? Do not drink alcohol if: ? Your health care provider tells you not to drink. ? You are , may be , or are planning to become . ??? If you drink alcohol: ? Limit how much you have to: ? 0?1 drink a day for women. ? 0?2 drinks a day for men. ? Know how much alcohol is in your drink. In the [place] one drink equals one 12 oz bottle (more content not included)... [facility] 01-10-2024 Note Patient Education Cardiovascular Hypertension, Adult High blood pressure (hypertension) is when the force of blood pumping through the arteries is too strong. The arteries are the blood vessels that carry blood from the heart throughout the body. Hypertension forces the heart to work harder to pump blood and may cause arteries to become narrow or stiff. Untreated or uncontrolled hypertension can lead to a heart attack, heart failure, a stroke, kidney disease, and other problems. A blood pressure reading consists of a higher number over a lower number. Ideally, your blood pressure should be below 120/80. The first ( top ) number is called the systolic pressure. It is a measure of the pressure in your arteries as your heart beats. The second ( bottom ) number is called the diastolic pressure. It is a measure of the pressure in your arteries as the heart relaxes. What are the causes? The exact cause of this condition is not known. There are some conditions that result in high blood pressure. What increases the risk? Certain factors may make you more likely to develop high blood pressure. Some of these risk factors are under your control, including: ? Smoking. ? Not getting enough exercise or physical activity. ? Being overweight. ? Having too much fat, sugar, calories, or salt (sodium) in your diet. ? Drinking too much alcohol. Other risk factors include: ? Having a personal history of heart disease, diabetes, high cholesterol, or kidney disease. ? Stress. ? Having a family history of high blood pressure and high cholesterol. ? Having obstructive sleep apnea. ? Age. The risk increases with age. What are the signs or symptoms? High blood pressure may not cause symptoms. Very high blood pressure (hypertensive crisis) may cause: ? Headache. ? Fast or irregular heartbeats (palpitations). ? Shortness of breath. ? Nosebleed. ? Nausea and vomiting. ? Vision changes. ? Severe chest pain, dizziness, and seizures. How is this diagnosed? This condition is diagnosed by measuring your blood pressure while you are seated, with your arm resting on a flat surface, your legs uncrossed, and your feet flat on the floor. The cuff of the blood pressure monitor will be placed directly against the skin of your upper arm at the level of your heart. Blood pressure should be measured at least twice using the same arm. Certain conditions can cause a difference in blood pressure between your right and left arms. If you have a high blood pressure reading during one visit or you have normal blood pressure with other risk factors, you may be asked to: ? Return on a different day to have your blood pressure checked again. ? Monitor your blood pressure at home for 1 week or longer. If you are diagnosed with hypertension, you may have other blood or imaging tests to help your health care provider understand your overall risk for other conditions. How is this treated? This condition is treated by making healthy lifestyle changes, such as eating healthy foods, exercising more, and reducing your alcohol intake. You may be referred for counseling on a healthy diet and physical activity. Your health care provider may prescribe medicine if lifestyle changes are not enough to get your blood pressure under control and if: ? Your systolic blood pressure is above 130. ? Your diastolic blood pressure is above 80. Your personal target blood pressure may vary depending on your medical conditions, your age, and other factors. Follow these instructions at home: Eating and drinking ? Eat a diet that is high in fiber and potassium, and low in sodium, added sugar, and fat. An example of this eating plan is called the DASH diet. DASH stands for Dietary Approaches to Stop Hypertension. To eat this way: ? Eat plenty of fresh fruits and vegetables. Try to fill one half of your plate at each meal with fruits and vegetables. ? Eat whole grains, such as whole-wheat pasta, brown rice, or whole-grain bread. Fill about one fourth of your plate with whole grains. ? Eat or drink low-fat dairy products, such as skim milk or low-fat yogurt. ? Avoid fatty cuts of meat, processed or cured meats, and poultry with skin. Fill about one fourth of your plate with lean proteins, such as fish, chicken without skin, beans, eggs, or tofu. ? Avoid pre-made and processed foods. These tend to be higher in sodium, added sugar, and fat. ? Reduce your daily sodium intake. Many people with hypertension should eat less than 1,500 mg of sodium a day. ? Do not drink alcohol if: ? Your health care provider tells you not to drink. ? You are , may be , or are planning to become . ? If you drink alcohol: ? Limit how much you have to: ? 0?1 drink a day for women. ? 0?2 drinks a day for men. ? Know how much alcohol is in your drink. In the [place] one drink equals one 12 oz bottle of beer (355 mL), one 5 oz glass of wine (148 mL), (more content not included)... [facility] 05-26-2023 Evaluation note Encounter Date Diagnosis Assessment Notes Apr, Hypertensive chronic kidney disease with stage 1 through stage 4 chronic kidney disease, or unspecified chronic kidney disease (ICD-10 - I12.9) Blood pressure is controlled. Continue current medications. I have advised her to call office if her blood pressure runs above 140 over 90 mmHg Apr, Chronic kidney disease, stage 4 (severe) (ICD-10 - N18.4) She has CKD due to longstanding HTN. Her baseline serum creatinine is 2.1-2.3 mg/dL Her renal function has declined either due to progression of her CKD or hemodynamic changes. Her renal US showed samll right renal cyst. I have explained to her the importance of good HTN control to slow down the progression of CKD. I have explained to her that she can have Ozempic, Ryaudrasus, Wegovy or Mounjaro for weight loss. Apr, Vitamin D deficiency (ICD-10 - E55.9) Calcium is within normal limit. Continue oral Vit D Apr, Secondary hyperparathyroidism (ICD-10 - N25.81) Calcium within normal limit. Will check PTH and phosphorus Apr, Gout attack (ICD-10 - M10.9) Uric acid is above the goal but she denies any recent gout flare. Continue allopurinol to 300 mg daily. [facility] Other 06-01-2023 Evaluation note* Encounter Date Diagnosis Assessment Notes Treatment Notes Treatment Clinical Notes Nov, Hypertensive chronic kidney disease with stage 1 through stage 4 chronic kidney disease, or unspecified chronic kidney disease (ICD-10 - I12.9) Blood pressure is controlled. Continue current medications Nov, Chronic kidney disea se, stage 4 (severe) (ICD-10 - N18.4) She has CKD due to longstanding HTN. Her serum creatinine is 2.1 mg/dL above b/l serum Creatinine is 1.8 mg/dl. Her renal function has declined either due to progression of her CKD or hemodynamic changes. Her renal US showed samll right renal cyst. I have explained to her the importance of good HTN control to slow down the progression of CKD. I have explained to her that she can have Ozempic, Rybelsus, Wegovy or Mounjaro for weight loss. Nov, Vitamin D deficiency (ICD-10 - E55.9) Her vitamin D is within the goal. Continue oral Vit D Nov, Secondary hyperparathyroidism (ICD-10 - N25.81) Her PTH, Ca and Phos are within the goal. Nov, Gout attack (ICD-10 - M10.9) Uric acid is above the goal but she denies any recent gout flare. Continue allopurinol to 300 mg daily. [facility] Other 11-10-2022 Evaluation note* Encounter Date Diagnosis Assessment Notes Treatment Notes Treatment Clinical Notes Apr, Hypertensive chronic kidney disease with stage 1 through stage 4 chronic kidney disease, or unspecified chronic kidney disease (ICD-10 - I12.9) Blood pressure is controlled. Continue current medications Apr, Chronic kidney disea se, stage 4 (severe) (ICD-10 - N18.4) She has CKD due to longstanding HTN. Her b/l serum Creatinine is 1.8 mg/dl. Her renal function is declining due to the progression of her CKD. Her renal US showed samll right renal cyst. I have explained to her the importance of good HTN control to slow down the progression of CKD Apr, Vitamin D deficiency (ICD-10 - E55.9) Her vitamin D is within the goal. Continue oral Vit D Apr, Secondary hyperparathyroidism (ICD-10 - N25.81) Her PTH, Ca and Phos are within the goal. Apr, Gout attack (ICD-10 - M10.9) Uric acid is above the goal but she denies any recent gout flare. Continue allopurinol to 300 mg daily. [facility] Other 07-19-2022 Evaluation note* Encounter Date Diagnosis Assessment Notes Treatment Notes Treatment Clinical Notes Dec, Chronic obstructive pulmonary disease, unspecified COPD type (ICD-10 - J44.9) Dec, Abnormal chest xray (ICD-10 - R93.89) Dec, Tobacco use disorder (ICD-10 - F17.200) [employer] Other 04-14-2022 Evaluation note* Encounter Date Diagnosis Assessment Notes Treatment Notes Treatment Clinical Notes Sep, Hypertensive chronic kidney disease with stage 1 through stage 4 chronic kidney disease, or unspecified chronic kidney disease (ICD-10 - I12.9) Blood pressure is controlled. Continue current medications Sep, Chronic kidney disea se, stage III (moderate) (ICD-10 - N18.30) She has CKD due to longstanding HTN. Her b/l serum Creatinine is 1.6-1.8 mg/dl. Her renal function is declining due to the progression of her CKD. Her renal US showed samll right renal cyst. I have explained to her the importance of good HTN control to slow down the progression of CKD Sep, Vitamin D deficiency (ICD-10 - E55.9) Her vitamin D is within the goal. Continue oral Vit D Sep, Secondary hyperparathyroidism (ICD-10 - N25.81) Her PTH, Ca and Phos are within the goal. Sep, Hyperuricemia (ICD-1 0 - E79.0) Uric acid is above the goal but she denies any recent gout flare. Continue allopurinol to 300 mg daily. [employer] Other 09-30-2021 Evaluation note* Encounter Date Diagnosis Assessment Notes Treatment Notes Treatment Clinical Notes Feb, Chronic obstructive pulmonary disease, unspecified COPD type (ICD-10 - J44.9) Feb, Abnormal chest xray (ICD-10 - R93.89) Feb, Personal history of tobacco use (ICD-10 - Z87.891) Feb, Anxiety (ICD-10 - F41.9) [employer] Other Evaluation noteNo InformationNort Rain Other Evaluation note* Diagnosis Onset Date Resolution Status CKD (chronic kidney disease) stage 4, GFR 15-29 ml/min acute Gout acute [id number] acute Secondary hyperparathyroidism acute Vitamin D deficiency acute [facility] Work Phone: Evaluation note* Diagnosis Onset Date Resolution Status CKD (chronic kidney disease) stage 4, GFR 15-29 ml/min acute Gout acute [id number] acute Hypomagnesemia acute Secondary hyperparathyroidism acute Vitamin D deficiency acute [facility] Work Phone: Evaluation note* Diagnosis Onset Date Resolution Status CKD (chronic kidney disease) stage 4, GFR 15-29 ml/min acute Gout acute [id number] acute Hypomagnesemia acute Secondary hyperparathyroidism acute Vitamin D deficiency acute Asthma with COPD acute Nicotine dependence, cigarettes, uncomplicated acute [facility] Work Phone: History general Narrative - Reported* Type Description Date Medical History Arthritis Medical History Hypertension Medical History COPD Medical History Asthma Medical History Restless Leg Syndrome Medical History Irritable bowel syndrom Medical History Depression Medical History Hyperlipidemia Medical History GERD Medical History RENAL FAILURE CHRONIC Medical History VITAMIN DEFICIENCY Medical History FIBROMYALGIA Medical History HYPERLIPIDEMIA Medical History FATIGUE Medical History OBBSTRUCTIVE SLEEP APNEA Surgical History Gall bladder removal Surgical History Ablasion Surgical History C section Surgical History RIGHT BREAST BIOPSY 05/2018 Hospitalization History See above Hospitalization History Pneumonia Hospitalization History Heart cath 2013 Hospitalization History CELLULTIS FOR 1 WK, AND TRANSFERRED TO SKILLED CARE 04/2020 [employer] Other History general Narrative - Reported* Type Description Date Medical History Arthritis Medical History Hypertension Medical History COPD Medical History Asthma Medical History Restless Leg Syndrome Medical History Irritable bowel syndrom Medical History Depression Medical History Hyperlipidemia Medical History GERD Medical History RENAL FAILURE CHRONIC Medical History VITAMIN DEFICIENCY Medical History FIBROMYALGIA Medical History HYPERLIPIDEMIA Medical History FATIGUE Medical History OBBSTRUCTIVE SLEEP APNEA Medical History RESTLESS LEG SYNDROME Surgical History Gall bladder removal Surgical History Ablasion Surgical History C section Surgical History RIGHT BREAST BIOPSY 05/2018 Hospitalization History See above Hospitalization History Pneumonia Hospitalization History Heart cath 2013 Hospitalization History CELLULTIS FOR 1 WK, AND TRANSFERRED TO SKILLED CARE 04/2020 [employer] Other History general Narrative - Reported* Type Description Date Medical History Arthritis Medical History Hypertension Medical History COPD Medical History Asthma Medical History Restless Leg Syndrome Medical History Irritable bowel syndrom Medical History Depression Medical History Hyperlipidemia Medical History GERD Medical History RENAL FAILURE CHRONIC Medical History VITAMIN DEFICIENCY Medical History FIBROMYALGIA Medical History HYPERLIPIDEMIA Medical History FATIGUE Medical History OBBSTRUCTIVE SLEEP APNEA Medical History RESTLESS LEG SYNDROME Medical History BLOOD LOT IN THE RIGHT LEG 04/17 23 Surgical History Gall bladder removal Surgical History Ablasion Surgical History C section Surgical History RIGHT BREAST BIOPSY 05/2018 Hospitalization History See above Hospitalization History Pneumonia Hospitalization History Heart cath 2013 Hospitalization History CELLULTIS FOR 1 WK, AND TRANSFERRED TO SKILLED CARE 04/2020 [employer] Other Summary Purpose Family History No Family History Records Found Relationship Condition Age at Onset Recorded Date/T krupa brother Unknown Suicide Unknown Family history of mental disorder Unknown daughter Asthma Unknown father Unknown Heart disease Unknown Hypertension Unknown Not Specified Unknown Malignant neoplasm Unknown natural son Asthma Unknown sister Diabetes mellitus Unknown Relationship Condition Age at Onset Recorded Date/T krupa brother Unknown Suicide Unknown Family history of mental disorder Unknown daughter Asthma Unknown father Unknown Heart disease Unknown Hypertension Unknown mother Unknown Malignant neoplasm Unknown son Asthma Unknown sister Diabetes mellitus Unknown Advance Directives No Advanced Directives Records Found Advance Directive Response Recorded Date/ Time Advance Directives No May 07, 2018 3:34pm Chief Complaint and Reason for Visit Chief Complaint RENAL 4 month follow up Reason for Visit CKD (chronic kidney disease) stage 4, GFR 15-29 ml/min Gout [id number] Secondary hyperparathyroidism Vitamin D deficiency Chief Complaint RENAL 4 MONTH F/U Reason for Visit CKD (chronic kidney disease) stage 4, GFR 15-29 ml/min Gout [id number] Hypomagnesemia Secondary hyperparathyroidism Vitamin D deficiency Chief Complaint RENAL 4 MONTH F/U AKIRA: 1 yr f/u COPD Reason for Visit CKD (chronic kidney disease) stage 4, GFR 15-29 ml/min Gout [id number] Hypomagnesemia Secondary hyperparathyroidism Vitamin D deficiency Asthma with COPD Nicotine dependence, cigarettes, uncomplicated Additional Source Comments INFORMATION SOURCE (unrecogn ized section and content) DATE CREATED AUTHOR 05/09/2021 [facility] DATE CREATED AUTHOR AUTHOR'S ORGANIZ ATION 12/05/2022 [facility] DATE CREATED AUTHOR AUTHOR'S ORGANIZ ATION 06/09/2024 [facility] REASON FOR VISIT (unrecogniz ed section and content) Ref: Dr. Murphy- ABN CXRNo In formationCKD6 mo f/u Asthma w COPDCKD and HTNCKD and HTNSCHED APPTCKD and HTN Care Teams (unrecognized sec tion and content) Team Status: Active Member Role Status Dates Yon Peterson MD Primary Care Provider Active Team Status: Active Member Role Status Dates Sohail Murphy MD Attending Provider Active Start : September 28, 2023 Team Status: Inactive Member Role Status Dates Sohail Murphy MD Attending Provider Active Start : September 29, 2023 End: September 29, 2023 Yon Peterson MD Primary Care Provider Active Start: September 29, 2023 End: September 29, 2023 Team Status: Active Member Role Status Dates Yon Peterson MD Primary Care Provider Active Start: February 11, 2024 Sohail Murphy MD Attending Provider Active Start : February 11, 2024 Team Status: Inactive Member Role Status Dates Yon Peterson MD Primary Care Provider Active Start: February 15, 2024 End: February 15, 2024 Sohail Murphy MD Attending Provider Active Start : February 15, 2024 End: February 15, 2024 Team Status: Inactive Member Role Status Dates Yon Peterson MD Primary Care Provider Active Start: March 07, 2024 End: March 07, 2024 Yon Martinez MD Active Start: March 07, 2024 End: March 07, 2024 Carissa Allen APRN [facility] Attending Provider Active Start: March 07, 2024 End: March 07, 2024 Goals (unrecognized section and content) Goals may be documented in a n alternate section FOR RECORDS PERTAINING TO PATIENTS WHO ARE OR HAVE BEEN ENROLLED IN A CHEMICAL DEPENDENCY/SUBSTANCEABUSE PROGRAM, SOME INFORMATION MAY BE OMITTED. This clinical summary was aggregated from multiple sources. Caution should be exercised in using it in the provision of clinical care. This summary normalizes information from multiple sources, and as a consequence, information in this document may materially change the coding, format and clinical context of patient data. In addition, data may be omitted in some cases. CLINICAL DECISIONS SHOULD BE BASED ON THE PRIMARY CLINICAL RECORDS. [facility]. provides no warranty or guarantee of the accuracy or completeness of information in this document.
[2024-08-23 10:56] LABS: Hematocrit 39.7 % (36.0-48.0); Hemoglobin 13.2 g/dL (12.0-16.0); Mean Corpuscular HGB Conc 33.2 g/dL (29.9-35.2); Mean Corpuscular Hemoglobin 32.6 pg (26.7-34.0); Mean Platelet Volume 10.1 fL (9.5-13.5); Platelet Count 253 10^3/uL (150-450); Red Blood Count 4.05 10^6/uL (4.20-5.40); White Blood Count 8.4 10^3/uL (4.0-11.0)
[2024-08-23 11:04] LABS: Bilirubin Urine NEGATIVE (NEGATIVE); Blood Urine NEGATIVE (NEGATIVE); Clarity Urine CLEAR (CLEAR); Color Urine LT. YELLOW (YELLOW); Glucose Urine UA NEGATIVE (NEGATIVE); Ketones Urine NEGATIVE (NEGATIVE); Leukocyte Esterase Urine NEGATIVE (NEGATIVE); Nitrite Urine NEGATIVE (NEGATIVE); Protein Urine NEGATIVE (NEG/TRACE)
[2024-08-23 11:08] LABS: Protein Creatinine Ratio Urine 0.17; Total Protein Urine Random 29.4 mg/dL (<=11.9)
[2024-08-23 11:26] LABS: Bacteria Urine TRACE #/HPF (NONE SEEN); Cast Seen? SEEN #/LPF (NONE SEEN); Crystals Seen? None Seen #/HPF (None Seen); Hyaline Casts Urine RARE; Mucus Urine NONE SEEN (NONE SEEN); RBC Urine 0-2 #/HPF (0-2); Squamous Epithelial Cell Urine MODERATE #/LPF (NONE/RARE); WBC Urine 0-2 #/HPF (NONE SEEN)
[2024-08-23 11:27] LABS: Albumin Level 3.5 g/dL (3.4-5.0); Anion Gap 10.9; BUN Creatinine Ratio 13.5; Calcium 9.1 mg/dL (8.5-10.1); Carbon Dioxide 26.5 mmol/L (21.0-32.0); Chloride 107 mmol/L (98-107); Estimated GFR (African America 28 (>=60 mL/min/1.73m^2); Estimated GFR (Non-African Ame 23 (>=60 mL/min/1.73m^2); Glucose 92 mg/dL (74-106); Magnesium 1.6 mg/dL (1.8-2.4); Phosphorus 3.3 mg/dL (2.6-4.7); Potassium 4.4 mmol/L (3.5-5.1); Sodium 140 mmol/L (136-145); Uric Acid 5.9 mg/dL (2.6-6.0)
[2024-08-24 12:08] LABS: PTH, Intact 93 pg/mL (15-65)
== END 2024-08-23 10:27 | disposition home or self-care (01) ==
LOC: LAB 10:29
PROVIDERS: Visit Provider Internal Medicine
DX: E83.42 Hypomagnesemia (principal); E55.9 Vitamin D deficiency, unspecified; M10.9 Gout, unspecified; N25.81 Secondary hyperparathyroidism of renal origin; I12.9 Hypertensive chronic kidney disease with stage 1 through stage 4 chronic kidney disease, or unspecified chronic kidney disease; N18.4 Chronic kidney disease, stage 4 (severe)
CPT/HCPCS: 36415; 80069; 81001; 82306; 82570; 83735; 83970; 84156; 84550; 85027

== ENCOUNTER 2024-11-07 12:11 | Outpatient (OUT) | payer MEDICARE, SELFPAY ==
[2024-11-07 12:36] LABS: Hematocrit 39.2 % (36.0-48.0); Hemoglobin 13.1 g/dL (12.0-16.0); Mean Corpuscular HGB Conc 33.4 g/dL (29.9-35.2); Mean Corpuscular Hemoglobin 32.7 pg (26.7-34.0); Mean Corpuscular Volume 97.8 fL (81.0-99.0); Mean Platelet Volume 10.2 fL (9.5-13.5); Platelet Count 233 10^3/uL (150-450); Red Blood Count 4.01 10^6/uL (4.20-5.40); Red Cell Distribution Width 13.3 % (11.0-15.0); White Blood Count 7.4 10^3/uL (4.0-11.0)
[2024-11-07 12:52] LABS: Bilirubin Urine NEGATIVE (NEGATIVE); Blood Urine TRACE-I (NEGATIVE); Clarity Urine CLEAR (CLEAR); Color Urine LT. YELLOW (YELLOW); Glucose Urine UA NEGATIVE (NEGATIVE); Ketones Urine NEGATIVE (NEGATIVE); Leukocyte Esterase Urine NEGATIVE (NEGATIVE); Nitrite Urine NEGATIVE (NEGATIVE); Protein Urine NEGATIVE (NEG/TRACE); Urobilinogen Urine 0.2 EU/dL (0.2-1.0)
[2024-11-07 12:59] LABS: Bacteria Urine TRACE #/HPF (NONE SEEN); Cast Seen? NONE SEEN #/LPF (NONE SEEN); Crystals Seen? None Seen #/HPF (None Seen); Mucus Urine NONE SEEN (NONE SEEN); Squamous Epithelial Cell Urine MODERATE #/LPF (NONE/RARE); WBC Urine 0-2 #/HPF (NONE SEEN)
[2024-11-07 13:07] LABS: Creatinine Urine Random 100.73 mg/dL (20.00-300.00); Protein Creatinine Ratio Urine 0.22; Total Protein Urine Random 22.2 mg/dL (<=11.9)
[2024-11-07 13:26] LABS: Albumin Level 3.3 g/dL (3.4-5.0); Anion Gap 12.8; BUN Creatinine Ratio 19.5; Calcium 9.1 mg/dL (8.5-10.1); Chloride 106 mmol/L (98-107); Estimated GFR (African America 28 (>=60 mL/min/1.73m^2); Estimated GFR (Non-African Ame 23 (>=60 mL/min/1.73m^2); Glucose 89 mg/dL (74-106); Magnesium 1.9 mg/dL (1.8-2.4); Phosphorus 3.5 mg/dL (2.6-4.7); Potassium 4.8 mmol/L (3.5-5.1); Sodium 140 mmol/L (136-145); Uric Acid 4.8 mg/dL (2.6-6.0)
[2024-11-08 12:08] LABS: PTH, Intact 77 pg/mL (15-65)
== END 2024-11-07 12:12 | disposition home or self-care (01) ==
LOC: LAB 12:14
PROVIDERS: Visit Provider Internal Medicine
DX: E83.42 Hypomagnesemia (principal); M10.9 Gout, unspecified; N25.81 Secondary hyperparathyroidism of renal origin; I12.9 Hypertensive chronic kidney disease with stage 1 through stage 4 chronic kidney disease, or unspecified chronic kidney disease; N18.4 Chronic kidney disease, stage 4 (severe)
CPT/HCPCS: 36415; 80069; 81001; 82306; 82570; 83735; 83970; 84156; 84550; 85027

== ENCOUNTER 2025-03-17 12:10 | Outpatient (OUT) | payer MEDICARE, SELFPAY ==
--- OUTSIDE RECORDS SUMMARY | 2025-03-17 12:19 | XMS_ITS | CCD ---
Author Organization [facility] Care Team Providers Care Nutrition Partner Name Role Phone Latosha Bryan Unavailable AlejandroCarissa [...] Care Unavailable CARITO, SOHAIL Admitting Unavailable Khari, Yolanda L. Attending Unavailable Khari, Yolanda L. Attending Unavailable Khari, Yolanda L. Attending Unavailable Khari, Yolanda L. Attending Unavailable Khari, Yolanda L. Admitting Unavailable Khari, Yolanda L. Attending Unavailable Khari, Yolanda L. Attending Unavailable Khari, Yolanda L. Attending Unavailable Khari, Yolanda L. Attending Unavailable Khari, Yolanda L. Attending Unavailable Khari, Yolanda L. Admitting Unavailable Khari, Yolanda L. Referring Unavailable Khari, Yolanda L. Attending Unavailable Khari, Yolanda L. Admitting Unavailable Khari, Yolanda L. Attending Unavailable Khari, Yolanda L. Attending Unavailable Allergies Allergy Classification Reported Allergen(s) Allergy Type Date of Onset Reaction(s) Facility (13 sources) Albuterol Drug Allergy 4 Unknown, Unknown Reaction [facility] (15 sources) gabapentin; Translations: [gabapentin] Drug Allergy 4 Unknown, Swelling of Lip/Tongue/Thr oat [facility] (10 sources) NSAIDs; Translations: [NSAIDs] Propensity to adverse reactions Unknown [facility] (7 sources) Fluarix Drug allergy Unknown [facility] Other (5 sources) NSAIDS (Non-Steroidal Anti-Inflamma Allergy to substance Unknown Reaction [facility] (2 sources) Albuterol; Translations: [Ventolin HFA] Drug Allergy [facility] (2 sources) flu vaccines; Translations: [flu vaccines] Propensity to adverse reactions (disorder) [facility] Medications Current Medications Medication Drug Class(es) Dates Sig (Normalized) Sig (Original) acetaminophen 325 mg / oxyCODONE hydrochloride 5 mg oral tablet (4 sources) Opioid Agonist Start: 02-15-2024 take 1 tablet by mouth every six hours as needed Oxycodone-Acetamin ophen 5-325 mg tablet Active 1 TAB PO Every 6 hours as needed February 15, 2024 12:00am albuterol 0.83 mg/ml inhalation solution (20 sources) beta2-Adrenergic Agonist Start: 09-29-2023 Albuterol Sulfate 2.5 mg /3 mL (0.083 %) solution for nebulization Active 2.5 MG INHALATION every 6 to 8 hours as needed September 29, 2023 12:00am Start: 09-29-2023 take 1 puff(s) by in halation every six hours as needed Albuterol Sulfate (Ventolin Hfa) 90 mcg/actuation HFA aerosol inhaler Active 2 PUFF INHALATION Every 6 hours as needed September 29, 2023 12:00am Albuterol Sulfat e (2.5 MG/3ML) 0.083% INHALE 1 VIAL VIA NEBULIZER EVERY 4 HOURS Inhalation Active take 2 puff(s) by mo uth four times daily as needed Ventolin HFA 108 (90 Base) MCG/ACT INHALE 2 PUFFS BY MOUTH 4 TIMES A DAY NEEDED Inhalation for 25 Active allopurinol 300 mg oral tablet (19 sources) Xanthine Oxidase Inhibitor Start: 09-29-2023 End: 09-29-2023 take 1 tablet by mouth once daily Allopurinol 300 mg tablet Active 300 MG PO Daily September 29, 2023 3:30pm Allopurinol 300 MG TAKE 1 TABLET BY MOUTH EVERY DAY FOR 90 DAYS for 90 Active amLODIPine 10 mg oral tablet (15 sources) Dihydropyridine Calcium Channel Subhash Start: 09-29-2023 End: 08-25-2024 take 1 tablet by mouth once daily Amlodipine 10 mg tablet Active 10 MG PO Daily August 25, 2024 2:31pm FreeTextSig: TAKE 1 TABLET BY MOUTH EVERY DAY Oral; Note: Source Status: Taking; Provider: Carito Sauceda ( ) take 1 tablet by mouth once noemy y amLODIPine Besylate 10 MG TAKE 1 TABLET BY MOUTH EVERY DAY Oral Active apixaban 5 mg oral tablet (8 sources) Factor Xa Inhibitor Start: 09-29-2023 End: 08-25-2024 take 1 tablet by mouth twice daily Apixaban 5 mg tablet Active 5 MG PO Twice daily August 25, 2024 2:31pm FreeTextSi tablet Orally Twice a day; Note: Source Status: Taking; Provider: Carito Sauceda ( ) take 1 tablet by mouth every twe lve hours Eliquis 5 MG 1 tablet Orally Twice a day Active ascorbic acid 500 mg oral capsule (5 sources) Vitamin C Start: 09-29-2023 Ascorbic Acid (Vitamin C) 500 mg capsule Active CAP PO September 29, 2023 12:00am FreeTextSig: Orally; Note: Source Status: Taking; Provider: Carito Sauceda ( ) Start: 09-29-2023 Ascorbic Acid (Vitamin C) Active CAP PO September 29, 2023 12:00am FreeTextSig: Orally; Note: Source Status: Taking; Provider: Carito Sauceda ( ) aspirin 81 mg chewable tablet (13 sources) Platelet Aggregation Inhibitor, Nonsteroidal Anti-inflammatory Drug Start: 09-29-2023 take 1 tablet by mouth once daily Aspirin 81 mg tablet,chewable Active 81 MG PO Daily September 29, 2023 12:00am Start: 08-05-2016 take 1 tablet by sagrario th every twenty-four hours Aspirin 81 MG 1 tablet Orally Once a day Jul, Active 120 actuat budesonide 0.16 mg/actuat / formoterol fumarate 0.0045 mg/actuat metered dose inhaler (12 sources) Corticosteroid, beta2-Adrenergic Agonist Start: 03-07-2024 End: 03-07-2024 take 1 puff(s) by inhalation twice daily Budesonide-Formoterol (Symbicort) 160-4.5 mcg/actuation HFA aerosol inhaler Active 2 PUFF INHALATION Twice daily 07 28March 07, 2024 2:07pm take 2 puff(s) by inhalation twi ce daily Symbicort 160-4.5 MCG/ACT 2 puffs Inhalation Twice a day Active 24 hr buPROPion hydrochloride 300 mg extended release oral tablet (12 sources) Aminoketone Start: 03-07-2024 take 1 tablet by mouth once daily Bupropion Hcl 300 mg tablet extended release 24 hr Active 300 MG PO Daily March 07, 2024 1:17pm Start: 02-15-2024 End: 03-07-2024 take 1 tablet by mouth every twenty-four hours Bupropion Hcl 300 mg tablet extended release 24 hr Discontinued MG PO February 15, 2024 12:00am March 07, 2024 1:19pm Start: 02-15-2024 End: 03-07-2024 Bupropion Hcl Discontinued [...] 2024 3:23pm cholecalciferol 0.05 mg oral capsule (5 sources) Vitamin D Start: 09-29-2023 take 1 capsule by mouth once daily Cholecalciferol (Vitamin D3) 50 mcg (2,000 unit) capsule Active 1 CAP PO Daily September 29, [...] mg / triamterene 37.5 mg oral tablet (13 sources) Potassium-sparing Diuretic, Thiazide Diuretic Start: 09-29-2023 take 1 tablet by mouth once daily Triamterene-Hydroch lorothiazid 37.5-25 mg tablet Active 1 TAB PO Daily September 29, 2023 12:00am Start: 08-05-2016 take 1 tablet by sagrario th every twenty-four hours Triamterene-HCTZ 37.5-25 MG 1 tablet in the morning Orally Once a day Jul, Active lisinopril 5 mg oral tablet (16 sources) Angiotensin Converting Enzyme Inhibitor Start: 09-29-2023 End: 03-07-2024 take 1 tablet by mouth once daily for hypertension Lisinopril 5 mg tablet Active 5 MG PO Daily March 07, 2024 1:17pm FreeTextSig: TAKE 1 TABLET BY MOUTH EVERY DAY FOR HYPERTENSION Oral; Note: Source Status: Taking; Provider: Carito Sauceda ( ) take 1 tablet by sagrario th once daily for hypertension Lisinopril 5 MG TAKE 1 TABLET BY MOUTH EVERY DAY FOR HYPERTENSION Oral Active loratadine 10 mg oral tablet (14 sources) Start: 09-29-2023 End: 11-17-2024 take 1 tablet by mouth once daily as needed Loratadine 10 mg tablet Active 10 MG PO Daily as needed November 17, 2024 1:54pm FreeTextSi tablet Orally Once a day; Note: Source Status: Taking; Provider: Carito Sauceda ( ) take 1 tablet by mouth once noemy y Loratadine 10 MG 1 tablet Orally Once a day Active magnesium oxide 400 mg oral tablet (10 sources) Start: 08-25-2024 End: 08-25-2024 take 1 tablet by mouth twice daily Magnesium Oxide 400 mg magnesium tablet Active 400 MG PO Twice daily August 25, 2024 2:53pm Start: 02-15-2024 End: 08-25-2024 take 1 tablet by mouth once daily Magnesium Oxide 400 mg magnesium tablet Discontinued 400 MG PO Daily August 25, 2024 2:34pm August 25, 2024 2:53pm meclizine hydrochloride 25 mg oral tablet (16 sources) Antiemetic Start: 09-29-2023 End: 03-07-2024 take 1 tablet by mouth twice daily as needed Meclizine 25 mg tablet Active 25 MG PO Twice daily as needed March 07, 2024 1:18pm take 1 tablet by sagrario th twice daily for dizziness Meclizine HCl 25 MG TAKE 1 TABLET BY MOUTH TWICE A DAY FOR DIZZINESS Oral for 30 Active montelukast 10 mg oral tablet (13 sources) Leukotriene Receptor Antagonist Start: 09-29-2023 take 1 tablet by mouth once daily Montelukast 10 mg tablet Active 1 TAB PO Daily September 29, 2023 12:00am FreeTextSi tablet Orally Once a day; Note: Source Status: Taking; Provider: Carito Sauceda ( ) take 1 tablet by sagrario th every twenty-four hours Montelukast Sodium 10 MG 1 tablet Orally Once a day Active omeprazole 40 mg delayed release oral capsule (17 sources) Proton Pump Inhibitor Start: 02-15-2024 take 1 capsule by mouth once daily Omeprazole 40 mg capsule,delayed release(DR/EC) Active 40 MG PO Daily February 15, 2024 3:24pm Start: 09-29-2023 End: 02-15-2024 take 1 capsule by mouth twice daily at lunch Omeprazole 40 mg capsule,delayed release(DR/EC) Discontinued MG PO September 29, 2023 12:00am February 15, 2024 3:24pm FreeTextSi capsule Oral TWICE A DAY; Note: Source Status: Taking; Provider: CAMRYN LUCAS take 1 capsule by mo uth every twelve hours Omeprazole 40 mg 1 capsule Oral TWICE A DAY Active ondansetron 4 mg oral tablet (13 sources) Serotonin-3 Receptor Antagonist Start: 09-29-2023 take 1 tablet by mouth every six hours as needed Ondansetron Hcl 4 mg tablet Active 4 MG PO Every 6 hours as needed September 29, 2023 12:00am take 1 tablet by sagrario th every six hours as needed for nausea Ondansetron HCl 4 MG TAKE 1 TABLET BY MO UTH EVERY 6 HOURS NEEDED FOR NAUSEA/VOMITING Oral for 6 Active pravastatin sodium 10 mg oral tablet (4 sources) HMG-CoA Reductase Inhibitor Start: 02-15-2024 take 1 tablet by mouth once daily Pravastatin 10 mg tablet Active 10 MG PO Daily February 15, 2024 12:00am rOPINIRole 1 mg oral tablet (17 sources) Nonergot Dopamine Agonist Start: 09-29-2023 End: 02-15-2024 take 1 tablet by mouth once daily at bedtime Ropinirole 1 mg tablet Active 1 MG PO Daily at bedtime February 15, 2024 3:24pm take 1 tablet by sagrario th once daily at bedtime rOPINIRole HCl 1 [...] Dates Sig (Normalized) Sig (Original) Fluticasone-Umecli din-Vilanter (5 sources) Anticholinergic, Corticosteroid, beta2-Adrenergic Agonist Start: 09-29-2023 End: 03-07-2024 Fluticasone-Umeclidi n-Vilanter (Trelegy Ellipta) 100-62.5-25 mcg blister with device Discontinued 1 INH INHALATION Daily September 28, 2023 11:00pm March 07, 2024 1:03pm Start: 09-29-2023 End: 03-07-2024 Hrxmihcqvhn-Pnnhfcxec-Hifflb er (Trelegy Ellipta) 100-62.5-25 mcg blister with device [...] unspecified] Onset: 1 Resolved: 1 Chronic Asthma (4 sources) Asthma-chronic obstructive pulmonary disease overlap syndrome; Translations: [Asthma-chronic obstructive pulmonary disease overlap syndrome] 03-03-2024 Chronic Chronic kidney disease (20 sources) Chronic kidney disease stage 3; Translations: [Chronic kidney disease, stage 3 (moderate)] Onset: 3 Chronic Chronic kidney disease (5 sources) Chronic kidney disease; Translations: [Chronic kidney disease, stage III (moderate)] Onset: 2 Resolved: 2 Chronic obstructive pulmonary disease and bronchiectasis (18 sources) Chronic obstructive lung disease; Translations: [Chronic obstructive pulmonary disease, unspecified] Onset: 1 Resolved: 2 Chronic Diabetes mellitus without complication (5 sources) Hyperglycemia, unspecified; Translations: [HYPERGLYCEMIA UNSPECIFIED] Onset: 3 Episodic Gout and other crystal arthropathies (18 sources) Acute gout; Translations: [Gout, unspecified] Onset: 3 Chronic Hypertension with complications and secondary hypertension (20 sources) Hypertensive renal disease; Translations: [Hypertensive chronic kidney disease with stage 1 through stage 4 chronic kidney disease, or unspecified chronic kidney disease] Onset: 2 Resolved: 2 Chronic Nutritional deficiencies (20 sources) Vitamin D deficiency; Translations: [Vitamin D deficiency, unspecified] Onset: 2 Resolved: 2 Chronic Osteoarthritis (6 sources) Osteoarthritis of knee; Translations: [Unilateral primary osteoarthritis, right knee] Chronic Other diseases of kidney and ureters (13 sources) Secondary hyperparathyroidism; Translations: [Secondary hyperparathyroidism of renal origin] 09-29-2023 Chronic Other diseases of kidney and ureters (10 sources) Secondary hyperparathyroidism of renal origin; Translations: [...] Chronic Other nutritional; endocrine; and metabolic disorders (4 sources) Hypomagnesemia; Translations: [Hypomagnesemia] 02-15-2024 Chronic Other nutritional; endocrine; and metabolic disorders (4 sources) Hypomagnesemia; Translations: [Disorders of magnesium metabolism] [...] FOR DM] Onset: 3 Episodic Substance-related disorders (17 sources) Smoker; Translations: [Nicotine dependence, unspecified, uncomplicated] [...] Reference Range Facil ity Ambulatory Visit Summaryon 0 03-07-2025 Ambulatory Visit Summary Ambulatory Visit Summary IMANI MCCLOUD :1965 Visit Date:03/07/2025 Ambulatory Visit Instructions Your Diagnosis Benign hypertension with chronic kidney disease, stage IV Fibromyalgia Migraine Insomnia Obstructive sleep apnea Skin tag Class 2 obesity due to excess calories in adult BMI 38.0-38.9,adult Your Care Team Attending Physician - Khari MISHRA, SUPERVISOR [employer]-Yolanda RODRIGUEZ Primary Care Physician - Khari MISHRA, SUPERVISOR [employer]-POLYSOMNOGRAPHIC TECHYolanda This Is Your Medications List Contact prescribing physician if questions or concerns APAP/butalbital/caff eine (APAP/butalbital/caf feine 325 mg-50 mg-40 mg oral capsule) Misc Prescription (Nebulizer tubing and mouthpiece) Misc Prescription (Permanent Handicap Paking Placcard (5 year)) acetaminophen-oxycod one (Percocet 5 mg-325 mg oral tablet) albuterol (Albuterol (Eqv-Proventil HFA) 90 mcg/inh inhalation aerosol) albuterol (Albuterol (Eqv-Ventolin HFA) 90 mcg/inh inhalation aerosol) albuterol (albuterol 0.083% Inh Nikki 3 mL) allopurinol (allopurinol 300 mg Tab) apixaban (Eliquis 5 mg oral tablet) aspirin buPROPion (buPROPion 300 mg/24 hours ER Tab) budesonide-formotero l (Symbicort 160/4.5 inhalation aerosol with adapter) cetirizine (cetirizine 10 mg oral capsule) cholecalciferol (cholecalciferol 2000 intl units oral tablet (Vitamin D3)) hydrochlorothiazide- triamterene (hydrochlorothiazide -triamterene 25 mg-37.5 mg Tab) hydrochlorothiazide- triamterene (hydrochlorothiazide -triamterene 25 mg-37.5 mg Tab) lisinopril (lisinopril 5 mg Tab) magnesium oxide (magnesium oxide 400 mg Tab) meclizine (meclizine 25 mg Tab) omeprazole (omeprazole 40 mg Cap-DR) ondansetron (ondansetron 4 mg Tab) pravastatin (pravastatin 10 mg Tab) promethazine (promethazine 25 mg Tab) ropinirole (ropinirole 1 mg Tab) Procedures Performed right ultrasound guided core breast biopsy (2017), Cardiac catheterisation (05/2014), Endometrial ablation (2006), section (1991), Laparoscopic cholecystectomy (1986). Discharge Vitals Heart Rate (Peripheral) 76 Respiratory Rate 16 Blood Pressure 120/74 Height 163 cm Height 64 in Weight 103.6 kg Weight 228.399 lb BMI 38.99 What to do next Scheduled Follow-Up Appointments Thursday 1:40 PM EST With: Khari MISHRA, Yolanda LUNA Where: [facility] [address] [place] [address]- You Need to Schedule the Following Appointments Follow Up with Khari MISHRA, Yolanda LUNA When: In 3 months Comments: chronic care Where: [address] [place] [phone] Someone Will Contact You Regarding These Appointments [facility] Ambulatory Referral, Dermatology, NOMS: skin tag to upper eye lid, 03/07/25 14:05:00 EDT, Skin tag Medications What How Much When Instructions Unchanged acetaminophen-oxycod one (Percocet 5 mg-325 mg oral tablet) 1 Tablets By Mouth Every 6 hours DX M79.7 Fibromyalgia 30 day supply Contact prescribing physician if questions or concerns Unchanged albuterol (Albuterol (Eqv-Proventil HFA) 90 mcg/ inh inhalation aerosol) 2 Puffs Inhalation Every 4 hours Contact prescribing physician if questions or concerns Unchanged albuterol (Albuterol (Eqv-Ventolin HFA) 90 mcg/ inh inhalation aerosol) 2 Inhalation Inhalation Every 6 hours Contact prescribing physician if questions or concerns Unchanged albuterol (albuterol 0.083% Inh Nikki 3 [...] prescribing physician if questions or concerns Unchanged buPROPion (buPROPion 300 mg/ 24 hours ER Tab) 1 Tablets By Mouth Every 24 hours Duration: 90 Days Contact prescribing physician if questions or concerns Unchanged cetirizine (cetirizine 10 mg oral capsule) 1 Capsules By Mouth Every day as needed for for allergy symptoms Contact prescribing physician if questions or concerns Unchanged cholecalciferol (cholecalciferol 2000 intl units oral tablet (Vitamin D3)) 1 Tablets By Mouth Every day Contact prescribing physician if questions or concerns Unchanged hydrochlorothiazide- triamterene (hydrochlorothiazide -triam (more content not included)... Normal [facility] Family Medicine Office/Clini c Noteon 03-07-2025 Family Medicine Office/Clinic Note Family Medicine Office/Clinic Note Chief Complaint Patient presents today for 3 month chronic care f/u The patient presents for a follow-up on fibromyalgia management and associated conditions. HPI Staff Patient is here for follow up on hypertension. How often are you checking your blood pressure? Not checking What are your average readings? N/A Are you compliant with your diet? yes Do you exercise? no Are you compliant with your medications? yes Are you having difficulty affording your medications? no Do you have side effects from the medication? no Do you have any of the following symptoms? Chest Pain? no Palpitations? no LARIOS/SOB? no Headache? no Peripheral Edema? no Light Headedness? no Fibromyalgia: Pain scale- _710 Time pt has been dealing diagnosis- Years Change in ROM- No Medication regimen for pain management- _ Side effects of medication- No Controlled Substance Review: Opioid risk tool reviewed and updated [place]AR[place] reviewed with no concerns Pill Count Done: Yes Urine Drug Screen done: Yes Medication Agreement updated: Yes History of Present Illness 59 Years old Female here for 3 month chronic care HPI staff / Chief Complaint confirmed with the patient Screening: Colon Cancer screening: declines with a _ year f/u recommended; this patient does NOT have family history of colon cancer Breast cancer screenin09/13/2024 ; this patient does NOT have a family history of breast cancer Pap smear: awhile ago DEXA: NA Labs: 09/05/2024 Medication agreement:12/05/2024 Urine drug screen: 09/05/2024 Smokers/ former smokers: quit 03/[address]: _ List of Providers: Engineering Mgr: Dr Murphy Farm Rancher: Replaced By [facility] Cr/eGFR: eGFR: 30 mL/min/1.73 m2 Low (09/05/24 13:43:00) Creatinine: 1.9 mg/dL High (09/05/24 13:43:00) A1c: No qualifying data available. TSH: No qualifying data available. Vit D: No qualifying data available. LDL: LDL Direct: 121 mg/dL (09/05/24 13:43:00) Lipids: Chol: 194 mg/dL (09/05/24 13:43:00) HDL: 48 mg/dL (09/05/24 13:43:00) LDL Direct: 121 mg/dL (09/05/24 13:43:00) Tri mg/dL High (09/05/24 13:43:00) VLDL: 33 mg/dL (09/05/24 13:43:00) Phone: -- Fax: -- The patient is presenting with a three-month follow-up for fibromyalgia management. Fibromyalgia has been managed with Percocet, which continues to be effective for symptom control. The patient reports good blood pressure control and continues to follow up with her insurance sales specialist for hypertensive chronic kidney disease management. The patient experiences migraines, which are infrequent, occurring approximately once a month. She has tried various medications in the past, including Imitrex and others that she cannot remember the name, with No success. The only medication that has been working well for her is the one that she is currently on APAP/Butobarbital/ca ffeine. But she knows is not good to mix with her Eliquis. She is willing to trial Nurtec. Insomnia is a concern, with difficulty initiating sleep and a disrupted sleep pattern, leading to daytime sleepiness. The patient has tried melatonin without success and is considering other options. The patient has obstructive sleep apnea and is under the care of a legal entity controller. A skin tag near the eye was noted, and the patient is considering options for removal. Review of Systems PHQ Score Initial Depression Screen Score: 0 SCORE - Neurological: Reports infrequent migraines, approximately once a month. Denies frequent headaches. - Sleep: Reports difficulty initiating sleep and disrupted sleep pattern. Denies restful sleep. Physical Exam Vitals & Measurements HR: 76(Peripheral) RR: 16 BP: 120/74 SpO2: 96% HT: 64 in HT: 163 cm WT: 228.399 lb WT: 103.6 kg BMI: 38.99 Constitutional: Well-groomed, well-nourished, no signs of acute [...] or lesions noted to the exposed skin. 1 cm x 0.5 cm raised area to the left upper eyelid without any erythema Psychiatric: Alert and oriented x 3, pleasant, no mood changes. Assessment/Plan 1. Benign hypertension with chronic kidney disease, stage IV (I12.9: Hypertensive chronic kidney disease with stage 1 through stage 4 chronic kidney disease, or unspecified chronic kidney disease) The importance of the following were all reviewed with the patient: -Take medications as prescribed. There are simple Lifestyle Modifications that you can do to reduce your blood pressure. -Weight Reduction -Follow the DASH eating plan. -Reduce Sodium (Salt) Intake to 2000mg per day. -Use Moderatio (more content not included)... Normal [facility] Comment on above: Result Comment: Elec tronically Signed By: Khari MISHRA, Yolanda CROWDER CNP\.br\Date and Time Signed: 03/07/25 14:55 EDT Ambulatory Visit Summaryon 0 12-05-2024 Ambulatory Visit Summary Ambulatory Visit Summary IMANI MCCLOUD :1965 Visit Date:12/05/2024 Ambulatory Visit Instructions Your Diagnosis Hypertension Hyperlipidemia Chronic kidney disease (CKD), stage IV (severe) Chronic obstructive pulmonary disease (COPD) Fibromyalgia Ptosis of eyelid Xanthelasma Severe obesity with body mass index (BMI) of 35.0 to 39.9 with serious comorbidity BMI 38.0-38.9,adult Your Care Team Attending Physician - JEREMY Bergman Tammy L. Primary Care Physician - JEREMY Bergman Tammy L. This Is Your Medications List Contact prescribing physician if questions or concerns APAP/butalbital/caff eine (APAP/butalbital/caf feine 325 mg-50 mg-40 mg oral capsule) Misc Prescription (Nebulizer tubing and mouthpiece) Misc Prescription (Permanent Handicap Paking Placcard (5 year)) acetaminophen-oxycod one (Percocet 5 mg-325 mg oral [...] mg Tab) ropinirole (ropinirole 1 mg Tab) Procedures Performed right ultrasound guided core breast biopsy (2017), Cardiac catheterisation (05/2014), Endometrial ablation (2006), section (1991), Laparoscopic cholecystectomy (1986). Discharge Vitals Heart Rate (Peripheral) 78 Respiratory Rate 18 Blood Pressure 118/78 Height 163 cm Height 64 in Weight 101.8 kg Weight 224.43 lb BMI 38.32 What to do next Scheduled Follow-Up Appointments Thursday 1:40 PM EDT With: Khari MISHRA, Yolanda LUNA Where: [facility] [address] [place] [address]- You Need to Schedule the Following Appointments Follow Up with Khari MISHRA, Yolanda LUNA When: In 3 months Comments: chronic care Where: [address] [place] [phone] Someone Will Contact You Regarding These Appointments [facility] [place] Ambulatory Referral, Plastic Surgery, Jennifer, 12/05/24 14:01:00 EDT, Ptosis of eyelid Xanthelasma Medications What How Much When Instructions Unchanged acetaminophen-oxycod one (Percocet 5 mg-325 mg oral tablet) 1 Tablets By Mouth Every 6 hours DX M79.7 Fibromyalgia 30 day supply Contact prescribing physician if questions or concerns Unchanged albuterol (Albuterol (Eqv-Proventil HFA) 90 mcg/ inh inhalation aerosol) 2 Puffs Inhalation Every 4 hours Contact prescribing physician if questions or concerns Unchanged albuterol (albuterol 0.083% Inh Nikki 3 [...] prescribing physician if questions or concerns Unchanged buPROPion (buPROPion 300 mg/ 24 hours ER Tab) 1 Tablets By Mouth Every 24 hours Duration: 90 Days Contact prescribing physician if questions or concerns Unchanged cetirizine (cetirizine 10 mg oral capsule) 1 Capsules By Mouth Every day as needed for for allergy symptoms Contact prescribing physician if questions or concerns Unchanged cholecalciferol (cholecalciferol 2000 intl units oral tablet (Vitamin D3)) 1 Tablets By Mouth Every day Contact prescribing physician if questions or concerns Unchanged hydrochlorothiazide- triamterene (hydrochlorothiazide -triamterene 25 mg-37.5 mg Tab) See instructions TAKE 1 TABLET BY MOUTH EVERY DAY Contact prescribing physician if questions or concerns Unchanged lisinopril (lisinopril 5 mg Tab) See instructions TAKE 1 TABLET BY MOUTH EVERY DAY Contact prescribing physician (more content not included)... Normal [facility] Family Medicine Office/Clini c Noteon 12-05-2024 Family Medicine Office/Clinic Note Family Medicine Office/Clinic Note Chief Complaint Complaints of recurrent eye issues and leg pain related to fibromyalgia. HPI Staff Patient is here for follow up on hypertension. HLD, CKD How often are you checking your [...] symptoms? Chest Pain? no Palpitations? no LARIOS/SOB? yes COPD Headache? no Peripheral Edema? no Light Headedness? yes History of Present Illness 59 Years old Female here for 3 month chronic care HPI staff / Chief Complaint confirmed with the patient Screening: Colon Cancer screening: declines with a _ year f/u recommended; this patient does NOT have family history of colon cancer Breast cancer screenin09/13/2024 ; this patient does NOT have a family history of breast cancer Pap smear: awhile ago DEXA: NA Labs: 09/05/2024 Medication agreement: 06/08/2024 Urine drug screen: 09/05/2024 Smokers/ former smokers: quit 03/[address]: _ List of Providers: Engineering Mgr: Dr Murphy LABS Cr/eGFR: eGFR: 30 mL/min/1.73 m2 Low (09/05/24 13:43:00) Creatinine: 1.9 mg/dL High (09/05/24 13:43:00) A1c: No qualifying data available. TSH: No qualifying data available. Vit D: No qualifying data available. LDL: LDL Direct: 121 mg/dL (09/05/24 13:43:00) Lipids: Chol: 194 mg/dL (09/05/24 13:43:00) HDL: 48 mg/dL (09/05/24 13:43:00) LDL Direct: 121 mg/dL (09/05/24 13:43:00) Tri mg/dL High (09/05/24 13:43:00) VLDL: 33 mg/dL (09/05/24 13:43:00) The patient is presenting with complaints regarding eye issues suspected to be due to xanthelasma and fibromyalgia-induced leg pain. Eye issues initially became apparent during discussion due to concern over recurring lesions. The lesions started out as an infection from the patient trying to pop a stye. The antibiotic did relief the redness, but now it is hard and protruding. The patient recognizes these lesions' appearance and persists using [id number] eye drops with modest symptomatic relief, seeking surgical evaluation and methods to manage these lesions. Significant bilateral leg pain, with a greater focus on the left, presented similarly to muscular cramps, disrupting nocturnal rest and closely associated with fibromyalgia flare-ups. Generalized pain is managed with Percocet, proving insufficient for eliminating discomfort. There's an overarching context of severe obesity, hypertension, hyperlipidemia, and COPD contributing to the complexity in managing these conditions. The patient seems to effectively manage chronic conditions with ongoing medication, though further assessments and adjustments may provide added relief, particularly regarding lipid control affecting xanthelasma formation. Review of Systems PHQ Score Initial Depression Screen Score: 0 SCORE - Eyes: Reports recurring lesions on the eyelids, potentially associated with hyperlipidemia. - Musculoskeletal: Reports bilateral leg pain, noted as significant in the evening and potentially exacerbated by existing fibromyalgia. - Respiratory: Denies shortness of breath or wheezing beyond normal allergies exacerbated symptoms. - Cardiovascular: Denies additional symptoms apart from managed hypertension. - General: Notes overall difficulties with severe obesity impacting mobility and overall health. Physical Exam Vitals & Measurements HR: 78(Peripheral) RR: 18 BP: 118/78 SpO2: 98% HT: 64 in HT: 163 cm WT: 224.43 lb WT: 101.8 kg BMI: 38.32 Constitutional: Well-groomed, well-nourished, no signs of acute distress. HEENT: Head normocephalic, sclera is clear. Firm, approximately centimeter protruding lesion to the left upper eyelid Cardiothoracic: Heart rate and rhythm is regular [...] 3, pleasant, no mood changes. Assessment/Plan 1. Hypertension (I10: Essential (primary) hypertension) The importance [...] to at least 2.5 hrs per week. Controlled under present regimens, continuous monitoring encouraged with (more content not included)... Normal [facility] Comment on above: Result Comment: Elec tronically Signed By: Khari MISHRA, CINDY- Yolanda RODRIGUEZ\.br\Date and Time Signed: 12/05/24 17:30 EDT Pre-Visit Planningon 025 Pre-Visit Planning Pre-Visit Planning - From: Nuria XAVIER, Lyndsey To: Khari MISHRA, CINDY-Yolanda RODRIGUEZ; Sent: 12/02/2024 13:30:17 EDT Subject: Pre-Visit Planning Due Date/Time: 12/02/2024 13:30:00 EDT Caller Name: IMANI MCCLOUD; Caller Number: Maryana , Eugenio Omer Guerrero, *Based on your response below, can you please update the chronic problem list and address during this visit if appropriate?* During a pre-visit planning chart review, I noted the following documentation in the medical record indicates that this patient had a BMI of 38.65 on 09/05/2024. The National [place] [employer] defines obesity as morbid if the patient demonstrates a BMI of over 40, or a BMI of 35 or more and at least one weight-related comorbid condition, such as diabetes or hypertension. Examples of weight-related comorbidities include diabetes, heart disease, stroke, hypertension, and arthritis. Current problem list: HTN, CKD stage IV, COPD, GERD Based on your medical judgment, can you further clarify the following diagnosis that correlates with the BMI listed above if the current BMI is still 35 or over? - Severe obesity with body mass index (BMI) of 35.0 to 39.9 with comorbidity - Severe obesity with body mass index (BMI) of 35.0 to 39.9 with serious comorbidity - Morbid obesity - Severe obesity - Other (please specify): I can update the problem list with your specified response if you would like. In responding to this request, please exercise your independent professional judgment. The fact that a question is asked does not imply that any particular answer is desired or expected. If you have any questions, please feel free to contact me at extension [phone]. Thank you! CALI Pitts, RN, CCM, CCDS, CCDS-O CDI [employer] History Professor [address] [address] P: [phone] F: [phone] [email or web address] - From: Khari MISHRA, SUPERVISOR [employer]-POLYSOMNOGRAPHIC TECH, Yolanda Almodovar To: Nuria XAVIER, Lyndsey; Sent: 12/02/2024 15:25:02 EDT Subject: RE: Pre-Visit Planning Caller Name: IMANI MCCLOUD; Caller Number: Maryana , M - Severe obesity with body mass index (BMI) of 35.0 to 39.9 with serious comorbidity [address] [facility] Erythrocyte distribution wid th Auto (RBC) [Ratio]on 11-07-2024 Erythrocyte distribution width (RBC) [Ratio] Erythrocyte distribution width [Ratio] by Automated count 11.0-15.0 [facility] Estimated glomerular filtrat ion rate (GFR) non- Americanon 11-07-2024 GFR/1.73 sq M.predicted among non-blacks MDRD (S/P/Bld) [Vol rate/Area] Estimated glomerular filtration rate (GFR) non- Low >=60 mL/min/1.73m 2 [facility] Hematocrit Auto (Bld) [Volum e fraction]on 11-07-2024 Hematocrit (Bld) [Volume fraction] Hematocrit [Volume Fraction] of Blood by Automated count 36.0-48.0 [facility] Hemoglobin [Mass/volume] in Bloodon 11-07-2024 Hemoglobin (Bld) [Mass/Vol] Hemoglobin [Mass/volume] in Blood 12.0-16.0 [facility] Laboratory - Chemistry and C hemistry - challengeon 11-07-2024 Albumin [Mass/Vol] 3.3 g/dL Low 3.4-5.0 [facility] Calcium [Mass/Vol] 9.1 mg/dL 8.5-10.1 [facility] Chloride [Moles/Vol] 106 mmol/L 98-107 [facility] CO2 [Moles/Vol] 26.0 mmol/L 21.0-32.0 [facility] Creatinine [Mass/Vol] 2.15 mg/dL High 0.55-1.02 [facility] GFR/1.73 sq M.predicted MDRD (S/P/Bld) [Vol rate/Area] 28 mL/min/{1.73_m2} Low >=60 mL/min/1.73m 2 [facility] Glucose [Mass/Vol] 89 mg/dL 74-106 [facility] Magnesium [Mass/Vol] 1.9 mg/dL 1.8-2.4 [facility] Potassium [Moles/Vol] 4.8 mmol/L 3.5-5.1 [facility] Sodium [Moles/Vol] 140 mmol/L 136-145 [facility] Urate [Mass/Vol] 4.8 mg/dL 2.6-6.0 [facility] Urea nitrogen [Mass/Vol] 42.0 mg/dL High 7.0-18.0 [facility] Urea nitrogen/Creatinin e [Mass ratio] 19.5 mg/mg [facility] Laboratory - Urinalysison Protein (U) [Mass/Vol] 22.2 mg/dL High <=11.9 [facility] Leukocytes [#/volume] correc roberto for nucleated erythrocytes in Blood by Automated counon 11-07-2024 WBC corrected for nucl RBC Auto (Bld) [#/Vol] Leukocytes [#/volume] corrected for nucleated erythrocytes in Blood by Automated coun 4.0-11.0 [facility] MCH Auto (RBC) [Entitic mass ]on 11-07-2024 MCH (RBC) [Entitic mass] MCH [Entitic mass] by Automated count 26.7-34.0 [facility] MCHC Auto (RBC) [Mass/Vol]on 11-07-2024 MCHC (RBC) [Mass/Vol] MCHC [Mass/volume] by Automated count 29.9-35.2 [facility] MCV Auto (RBC) [Entitic vol] on 11-07-2024 MCV (RBC) [Entitic vol] MCV [Entitic volume] by Automated count 81.0-99.0 [facility] No Panel Informationon 11-07 25-Hydroxy Vitamin D Total 64.7 ng/mL [facility] Comment on above: <20 ng/mL Vit D defi cient20-<30 ng/mL Vit D [id number] ng/mL Vit D sufficient>100 ng/mL Potential Toxicity Parathyroid Hormone (Intact) 77 pg/mL Abnormal 15-65 [facility] Comment on above: Performed at: [address] [id number] Director: Camacho Maurer PhD, Phone: [phone] Phosphorus Level 3.5 mg/dL 2.6-4.7 [facility] Urine Random Creatinine 100.73 mg/dL 20.00-300.00 [facility] Platelet mean volume Auto (B ld) [Entitic vol]on 11-07-2024 Platelet mean volume (Bld) [Entitic vol] Platelet mean volume [Entitic volume] in Blood by Automated count 9.5-13.5 [facility] Platelets Auto (Bld) [#/Vol] on 11-07-2024 Platelets (Bld) [#/Vol] Platelets [#/volume] in Blood by Automated count 150-450 [facility] RBC Auto (Bld) [#/Vol]on RBC (Bld) [#/Vol] Erythrocytes [#/volume] in Blood by Automated count Low 4.20-5.40 [facility] Serum or plasma anion gap de terminationon 11-07-2024 Anion gap [Moles/Vol] Serum or plasma anion gap determination [facility] Urine protein/creatinine rat ioon 11-07-2024 Protein/Creatinine (U) [Ratio] Urine protein/creatinine ratio [facility] Provider Letteron 09-19-2024 Provider Letter Provider Letter September 19, 2024 [place] [address] : 1965 Dear Imani , We have been trying to reach you with no success. It is important that you return our call regarding your mammogram results upon receiving this letter. Also, at the time of your call, please provide us with your current information. Thank you for your prompt attention to this matter. Sincerely, [facility] [place] [address] [place] [address] [facility] [place] Mamm Screen w/CAD if perf and 3D Bilon 09-13-2024 MA Mamm Screen w/CAD if perf and 3D Jayy Exam Date/Time: 09/13/2024 12:18 EDT Reason for Exam: Z12.31;Screening Report IMPRESSION: BIRADS 2 BENIGN FINDINGS, NORMAL INTERVAL FOLLOW-UP.12 MONTH RECALL. CLINICAL HISTORY: Screening, Z12.31. COMPARISON: 12/31/2022. COMMENT: Routine views and tomosynthesis views of both breasts were obtained. The breasts are almost entirely fatty. There is a small metallic biopsy clip in the right breast. No dominant breast mass nor neoplastic calcifications are noted. There has been no significant change from the previous exam. The examination was reviewed with Computer Aided Detection. Breast Density: No Mammography is very important to your health. The current [employer] and National [employer] guidelines recommends annual mammography beginning at age 40. This facility utilizes a reminder system to ensure all patients receive reminder notifications at the appropriate time based on the recommendations of this exam. Board Certified Radiologists. Accredited by the ACR and FDA. Ordering Provider: Yolanda Lucia FINAL REPORT Dictated: 09/13/2024 4:50 pm Mihir Del Cid M.D. Signed (Electronic Signature): 09/13/2024 4:50 pm Signed by: Mihir Del Cid M.D. Transcribed by: ELISE Technologist: BENJAMIN Assessment: BI-RADS Category 2-Benign finding Recommendation: Normal interval follow-up Normal [facility] Ambulatory Visit Summaryon 0 09-05-2024 Ambulatory Visit Summary Ambulatory Visit Summary IMANI MCCLOUD [place] :1965 Visit Date:09/05/2024 Ambulatory Visit Instructions Your Diagnosis Benign hypertension with chronic kidney disease, stage IV Hyperlipidemia Chronic obstructive pulmonary disease (COPD) Chronic kidney disease (CKD), stage IV (severe) Right leg DVT Fibromyalgia Class 2 obesity due to excess calories in adult, Other obesity due to excess calories BMI 38.0-38.9,adult Your Care Team Attending Physician - Khari MISHRA, SUPERVISOR [employer]-Yolanda RODRIGUEZ. Primary Care Physician - Khari MISHRA, SUPERVISOR [employer]-Yolanda RODRIGUEZ. This Is Your Medications List albuterol (albuterol 0.083% Inh Nikki 3 mL) apixaban (Eliquis 5 mg oral tablet) lisinopril (lisinopril 5 mg Tab) Contact prescribing physician if questions or concerns APAP/butalbital/caff eine (APAP/butalbital/caf feine 325 mg-50 mg-40 mg oral capsule) Misc Prescription (Nebulizer tubing and mouthpiece) Misc Prescription (Permanent Handicap Paking Placcard (5 year)) Misc Prescription (amoxicillin-clavula vashti (Augmentin 875 mg-125 mg Tab)) acetaminophen-oxycod one (Percocet 5 mg-325 mg oral tablet) albuterol (Albuterol (Eqv-Proventil HFA) 90 mcg/inh inhalation aerosol) allopurinol (allopurinol 300 mg Tab) aspirin brompheniramine/dext romethorphan/PSE (Bromfed DM oral syrup) buPROPion (buPROPion 300 mg/24 hours ER Tab) budesonide-formotero l (Symbicort 160/4.5 inhalation aerosol with adapter) cetirizine (cetirizine 10 mg oral capsule) cholecalciferol (cholecalciferol 2000 intl units oral tablet (Vitamin D3)) hydrochlorothiazide- triamterene (hydrochlorothiazide -triamterene 25 mg-37.5 mg Tab) magnesium oxide (magnesium oxide 400 mg Tab) meclizine (meclizine 25 mg Tab) omeprazole (omeprazole 40 mg Cap-DR) ondansetron (ondansetron 4 mg Tab) pravastatin (pravastatin 10 mg Tab) promethazine (promethazine 25 mg Tab) ropinirole (ropinirole 1 mg Tab) Procedures Performed right ultrasound guided core breast biopsy (2017), Cardiac catheterisation (05/2014), Endometrial ablation (2006), section (1991), Laparoscopic cholecystectomy (1986). Discharge Vitals Temperature (Temporal Artery) 36.5 ???C Heart Rate (Peripheral) 78 Respiratory Rate 20 Blood Pressure 136/80 Height 163 cm Height 64 in Weight 102.7 kg Weight 226.414 lb BMI 38.65 What to do next You Need to Schedule the Following Appointments Follow Up with Khari MSN, SUPERVISOR [employer]-POLYSOMNOGRAPHIC TECH, Yolanda Almodovar When: In 3 months Comments: chronic care Where: [address] [place] [id number] Medications What How Much When Instructions Unchanged albuterol (albuterol 0.083% Inh Nikki 3 mL) 3 Milliliter Nebulized inhalation (aerosol) Every 6 hours Pickup at [facility]/pharmacy #[id number] Unchanged apixaban (Eliquis 5 mg oral tablet) 1 Tablets By Mouth 2 times a day Pickup at [facility]/pharmacy #[id number] Unchanged lisinopril (lisinopril 5 mg Tab) See instructions TAKE 1 TABLET BY MOUTH EVERY DAY Pickup at [facility]/pharmacy #6177 Unchanged acetaminophen-oxycod one (Percocet 5 mg-325 mg oral tablet) 1 Tablets By Mouth Every 6 hours DX M79.7 Fibromyalgia 30 day supply Contact prescribing physician if questions or concerns Unchanged albuterol (Albuterol (Eqv-Proventil HFA) 90 mcg/ [...] prescribing physician if questions or concerns Unchanged brompheniramine/ dextromethorphan/ PSE (Bromfed DM oral syrup) 5 Milliliter By Mouth 4 times a day as needed for for cough and congestion Contact prescribing physician if questions or concerns Unchanged budesonide-formotero l (Symbicort 160/ 4.5 inhalation aerosol with adapter) 2 Puffs Inhalation 2 times a day Contact prescribing physician if questions or concerns Unchanged buPROPion (buPROPion 300 mg/ 24 hours ER Tab) 1 Tablets By Mouth Every 24 hours Duration: 90 Days Contact prescribing physician if questions or concerns Unchanged cetirizine (cetirizine 10 mg oral capsule) 1 Capsules By Mouth Every day as needed for for allergy symptoms Contact prescribing physician if questions or concerns Unchanged cholecalciferol (cholecalciferol 2000 intl units oral tablet (Vitamin D3)) 1 Tablets By Mouth Every day Contact prescribing physician if questions or concerns Unchanged hydrochlorothiazide- triamterene (hydrochlorothiazide -triamterene 25 mg-37.5 mg Tab) See instructions TAKE 1 TABLET BY MOUTH EVERY DAY Contact prescribing physician if questions or concerns Unchanged magnesium oxide (more content not included)... Normal [facility] CBC w/ Auto Diffon 5 Basophils/100 WBC (Bld) 0.9 % Normal 0.0-2.0 [facility] Comment on above: Performed By: #### 2 [id number] #### [facility] [address] [place] [address] Basophils/Leukocyt es Auto (Bld) [Pure # fraction] 0.1 E9/L Normal 0.0-0.2 [facility] Comment on above: Performed By: #### 2 [id number] #### [facility] [address] [place] [address] Eosinophils (Bld) [#/Vol] 0.2 E9/L Normal 0.0-0.5 [facility] Comment on above: Performed By: #### 2 [id number] #### [facility] [address] [place] [address] Eosinophils/100 WBC (Bld) 2.2 % Normal 0.0-8.0 [facility] Comment on above: Performed By: #### 2 [id number] #### [facility] [address] [place] [address] Erythrocyte distribution width (RBC) [Ratio] 14.7 % High 10.9-14.2 [facility] Comment on above: Performed By: #### 2 [id number] #### [facility] [address] [place] [address] Hematocrit (Bld) [Volume fraction] 38.9 % Normal 34.0-46.0 [facility] Comment on above: Performed By: #### 2 [id number] #### [facility] [address] [place] [address] Hemoglobin (Bld) [Mass/Vol] 12.9 g/dL Normal 12.0-16.0 [facility] Comment on above: Performed By: #### 2 [id number] #### [facility] [address] [place] [address] Lymphocytes (Bld) [#/Vol] 2.2 E9/L Normal 1.0-4.0 [facility] Comment on above: Performed By: #### 2 [id number] #### [facility] [address] [place] [address] Lymphocytes/100 WBC (Bld) 31.0 % Normal 14.0-50.0 [facility] Comment on above: Performed By: #### 2 [id number] #### [facility] [address] [place] [address] MCH (RBC) [Entitic mass] 33.1 pg Normal 27.0-34.0 [facility] Comment on above: Performed By: #### 2 [id number] #### [facility] [address] [place] [address] MCHC (RBC) [Mass/Vol] 33.3 g/dL Normal 31.4-36.0 [facility] Comment on above: Performed By: #### 2 [id number] #### [facility] [address] [place] [address] MCV (RBC) [Entitic vol] 99.4 fL Normal 80.0-100.0 [facility] Comment on above: Performed By: #### 2 [id number] #### [facility] [address] [place] [address] Monocytes (Bld) [#/Vol] 0.4 E9/L Normal 0.2-1.0 [facility] Comment on above: Performed By: #### 2 [id number] #### [facility] [address] [place] [address] Neutrophils (Bld) [#/Vol] 4.3 E9/L Normal 2.0-7.5 [facility] Comment on above: Performed By: #### 2 [id number] #### [facility] [address] [place] [address] Neutrophils/100 WBC (Bld) 60.0 % Normal 36.0-75.0 [facility] Comment on above: Performed By: #### 2 [id number] #### [facility] [address] [place] [address] Platelet mean volume (Bld) [Entitic vol] 9.7 fL Normal 6.4-10.8 [facility] Comment on above: Performed By: #### 2 [id number] #### [facility] [address] [place] [address] Platelets (Bld) [#/Vol] 215.0 E9/L Normal 150.0-500.0 [facility] Comment on above: Performed By: #### 2 [id number] #### [facility] [address] [place] [address] RBC (Bld) [#/Vol] 3.9 E12/L Low 4.3-5.9 [facility] Comment on above: Performed By: #### 2 [id number] #### [facility] [address] [place] [address] WBC corrected for nucl RBC Auto (Bld) [#/Vol] 7.2 E9/L Normal 4.0-11.0 [facility] Comment on above: Performed By: #### 2 [id number] #### [facility] [address] [place] [address] CMPon 09-05-2024 Albumin [Mass/Vol] 3.8 g/dL Normal 3.3-5.0 [facility] Comment on above: Order Comment: if no t ordered by insurance sales specialist Performed By: #### 2 [id number] #### [facility] [address] [place] [address] Albumin/Globulin (S) [Mass conc ratio] 1.6 Normal 1.1-2.2 [facility] Comment on above: Order Comment: if no t ordered by insurance sales specialist Performed By: #### 2 [id number] #### [facility] [address] [place] [address] ALP [Catalytic activity/Vol] 91 Int._Unit/L Normal 21-98 [facility] Comment on above: Order Comment: if no t ordered by insurance sales specialist Performed By: #### 2 [id number] #### [facility] [address] [place] [address] ALT No additional P-5'-P [Catalytic activity/Vol] 17 Int._Unit/L Normal 6-46 [facility] Comment on above: Order Comment: if no t ordered by insurance sales specialist Performed By: #### 2 [id number] #### [facility] [address] [place] [address] Anion gap [Moles/Vol] 9 mmol/L Normal 6-16 [facility] Comment on above: Order Comment: if no t ordered by insurance sales specialist Performed By: #### 2 [id number] #### [facility] [address] [place] [address] AST [Catalytic activity/Vol] 15 Int._Unit/L Normal 5-43 [facility] Comment on above: Order Comment: if no t ordered by insurance sales specialist Performed By: #### 2 [id number] #### [facility] [address] [place] [address] Bilirubin [Mass/Vol] 0.3 mg/dL Normal 0.0-1.1 [facility] Comment on above: Order Comment: if no t ordered by insurance sales specialist Performed By: #### 2 [id number] #### [facility] [address] [place] [address] Calcium [Mass/Vol] 9.1 mg/dL Normal 8.9-11.1 [facility] Comment on above: Order Comment: if no t ordered by insurance sales specialist Performed By: #### 2 [id number] #### [facility] [address] [place] [address] Chloride [Moles/Vol] 108 mmol/L Normal 101-111 [facility] Comment on above: Order Comment: if no t ordered by insurance sales specialist Performed By: #### 2 [id number] #### [facility] [address] [place] [address] CO2 [Moles/Vol] 26 mmol/L Normal 21-31 [facility] Comment on above: Order Comment: if no t ordered by insurance sales specialist Performed By: #### 2 [id number] #### [facility] [address] [place] [address] Creatinine [Mass/Vol] 1.9 mg/dL High 0.5-1.3 [facility] Comment on above: Order Comment: if no t ordered by insurance sales specialist Performed By: #### 2 [id number] #### [facility] [address] [place] [address] Globulin (S) [Mass/Vol] 2.4 g/dL Normal 1.4-4.0 [facility] Comment on above: Order Comment: if no t ordered by insurance sales specialist Performed By: #### 2 774120 #### [facility] [address] [place] [address] Glucose [Mass/Vol] 112 mg/dL Normal 55-199 [facility] Comment on above: Order Comment: if no t ordered by insurance sales specialist Performed By: #### [id number] #### [facility] [address] [place] [address] Potassium [Moles/Vol] 4.8 mmol/L Normal 3.5-5.3 [facility] Comment on above: Order Comment: if no t ordered by insurance sales specialist Performed By: #### 2 [id number] #### [facility] [address] [place] [address] Protein [Mass/Vol] 6.2 g/dL Normal 6.0-7.8 [facility] Comment on above: Order Comment: if no t ordered by insurance sales specialist Performed By: #### 2 [id number] #### [facility] [address] [place] [address] Sodium [Moles/Vol] 138 mmol/L Normal 135-145 [facility] Comment on above: Order Comment: if no t ordered by insurance sales specialist Performed By: #### 2 [id number] #### [facility] [address] [place] [address] Urea nitrogen [Mass/Vol] 35 mg/dL High 5-21 [facility] Comment on above: Order Comment: if no t ordered by insurance sales specialist Performed By: #### 2 [id number] #### [facility] [address] [place] [address] Urea nitrogen/Creatinin e [Mass ratio] 18 No Units Normal 10-20 [facility] Comment on above: Order Comment: if no t ordered by insurance sales specialist Performed By: #### 2 [id number] #### [facility] [address] [place] [address] Family Medicine Office/Clini c Noteon 09-05-2024 Family Medicine Office/Clinic Note Family Medicine Office/Clinic Note Chief Complaint The patient presents for fibromyalgia pain management and review of chronic disease management. HPI Staff Patient is here for follow [...] Headache? yes Peripheral Edema? no Light Headedness? no History of Present Illness 58 Years old Female here for 3 month chronic care HPI staff / Chief Complaint confirmed with the patient Screening: Colon Cancer screening: declines with a _ year f/u recommended; this patient does NOT have family history of colon cancer Breast cancer screenin12/31/2022 ; this patient does NOT have a family history of breast cancer Pap smear: awhile ago DEXA: NA Labs: 03/2023 Medication agreement: 06/08/2024 Smokers/ former smokers: quit 03/[address]: _ List of Providers: Engineering Mgr: Dr Murphy LABS Cr/eGFR: eGFR: 24 mL/min/1.73 [...] VLDL: 37 mg/dL (04/24/23 09:34:00) The patient is presenting with pain management concerns and the management of chronic conditions. She has been experiencing intermittent episodes of fibromyalgia pain, sometimes reaching high severity, though it decreases upon medication intake. The Percocet does help managed the pain. Management of benign hypertension with chronic kidney disease, Stage IV, has shown some improvement in renal function per patient. Her insurance sales specialist does regular blood work. Additionally, the patient has a history of COPD, hyperlipidemia, and right leg DVT from March 2023. These conditions are managed through various medications and require careful titration and monitoring, particularly concerning blood pressure and thromboembolic risk. Headache episodes attributed to weather and allergy changes are notable in her history, warranting allergy treatment. Does need refills on albuterol, Eliquis and lisinopril. The stye to the left upper eye lid is improving, but still there. Review of Systems PHQ Score Initial Depression Screen Score: 0 SCORE - Constitutional: Reports symptoms associated with fibromyalgia pain. - Cardiovascular: Denies chest pain. - Respiratory: Reports headaches associated with congestion and weather changes; denies shortness of breath. - Gastrointestinal: Reports nausea. - Musculoskeletal: Reports intermittent fibromyalgia pain. Physical Exam Vitals & Measurements T: 36.5 ???C(Temporal Artery) HR: 78(Peripheral) RR: 20 BP: 136/80 SpO2: 96% HT: 64 in HT: 163 cm WT: 102.7 kg WT: 226.414 lb BMI: 38.65 Constitutional: Well-groomed, well-nourished, no signs of acute distress. HEENT: Head normocephalic, sclera is clear, light pink, raised area to left eyelid Cardiothoracic: Heart rate and rhythm is regular strong, normal S1 and S2. No murmurs, rubs, or bruits auscultated. generalized edema, peripheral pulses +2. Respiratory: Lung sounds are clear throughout, respirations regular nonlabored. No shortness of breath reported. Abdomen/GI: Abdomen soft nondistended. Musculoskeletal: Gait is steady, full range of motion. Integument: No rashes or lesions noted to the exposed skin. Psychiatric: Alert and oriented x 3, pleasant, no mood changes. Assessment/Plan 1. Benign hypertension with chronic kidney disease, stage IV (I12.9: Hypertensive chronic kidney disease with stage 1 through stage 4 chronic kidney disease, or unspecified chronic kidney disease) The importance of the following were all [...] to at least 2.5 hrs per week. Currently Blood pressure is well managed and control, continue regimen as previous prescribed Ordered: Lab Specimen Collect [id number] 2. Hyperlipidemia (E78.49: Other hyperlipidemia) The importance of the following were all reviewed with the patient: -Take medications as prescribed. - Recommended following the [facility] Lipid Diet which is a low fat/low choleste (more content not included)... Normal [facility] Comment on above: Result Comment: Elec tronically Signed By: Khari MISHRA, SUPERVISOR [employer]- POLYSOMNOGRAPHIC TECH, Yolanda Almodovar\.br\Date and Time Signed: 09/05/24 14:48 EDT Lipid Panelon 09-05-2024 Cholesterol [Mass/Vol] 194 mg/dL Normal 120-200 [facility] Comment on above: Performed By: #### 2 [id number] #### [facility] [address] [place] [address] Cholesterol in HDL [Mass/Vol] 48 mg/dL Invalid Interpretation Code [facility] Comment on above: Result Comment: '>= 60 LOW RISK' '<= 40 HIGH RISK' Performed By: #### 2 [id number] #### [facility] [address] [place] [address] Cholesterol in LDL [Mass/Vol] 121 mg/dL Normal <=129 [facility] Comment on above: Performed By: #### 2 [id number] #### [facility] [address] [place] [address] Cholesterol in VLDL [Mass/Vol] 33 mg/dL Normal 7-40 [facility] Comment on above: Performed By: #### 2 [id number] #### [facility] [address] [place] [address] Triglyceride [Mass/Vol] 166 mg/dL High <=149 [facility] Comment on above: Performed By: #### 2 [id number] #### [facility] [address] [place] [address] eGFRon 09-05-2024 eGFR 30 mL/min/1.73 m2 Low >=59 [facility] Comment on above: Performed By: #### 1 [id number] #### [facility] [address] [place] [address] Ambulatory Visit Summaryon 0 08-26-2024 Ambulatory Visit Summary Ambulatory Visit Summary IMANI MCCLOUD :1965 Visit Date:08/26/2024 Ambulatory Visit Instructions Your Diagnosis Hordeolum externum (stye) Acute cough Class 2 obesity due to excess calories in adult BMI 37.0-37.9, adult Your Care Team Attending Physician - Khari MISHRA, CINDY-Yolanda RODRIGUEZ Primary Care Physician - Khari MISHRA, SUPERVISOR [employer]-Yolanda RODRIGUEZ This Is Your Medications List Misc Prescription (Permanent Handicap Paking Placcard (5 year)) amoxicillin-clavulan ate (Augmentin 875 mg-125 mg Tab) brompheniramine/dext romethorphan/PSE (Bromfed DM oral syrup) Contact prescribing physician if questions or concerns APAP/butalbital/caff eine (APAP/butalbital/caf feine 325 mg-50 mg-40 mg oral capsule) Misc Prescription (Nebulizer tubing and mouthpiece) acetaminophen-oxycod [...] cholecystectomy (1986). Discharge Vitals Temperature (Temporal Artery) 36.7 ???C Heart Rate (Peripheral) 106 Respiratory Rate 18 Blood Pressure 134/86 Height 163 cm Height 64 in Weight 99.6 kg Weight 219.58 lb BMI 37.49 What to do next Scheduled Follow-Up Appointments Thursday 1:00 PM EDT With: Khari MISHRA, Yolanda LUNA Where: [address] [address]- You Need to Schedule the Following Appointments Follow Up with Khari MISHRA, Yolanda LUNA When: Only if needed Where: [address] [place] [phone] Medications What How Much When Instructions New amoxicillin-clavulan ate (Augmentin 875 mg-125 mg Tab) 1 Tablets By Mouth Every 12 hours Duration: 7 Days Pickup at [facility]/pharmacy #[id number] New brompheniramine/ dextromethorphan/ PSE (Bromfed DM oral syrup) 5 Milliliter By Mouth 4 times a day as needed for for cough and congestion Pickup at [facility]/pharmacy #[id number] Changed [facility] Prescription (Permanent Handicap Paking Placcard (5 year)) See instructions Handicap Parking, limited 5 years: 2029 Printed Prescription Unchanged acetaminophen-oxycod one (Percocet 5 mg-325 mg oral tablet) 1 Tablets By Mouth Every 6 hours DX M79.7 Fibromyalgia 30 day supply Contact prescribing physician if questions or concerns Unchanged albuterol (Albuterol (Eqv-Proventil HFA) 90 mcg/ inh inhalation aerosol) 2 Puffs Inhalation Every 4 hours Contact prescribing physician if questions or concerns Unchanged albuterol (albuterol 0.083% Inh Nikki 3 [...] prescribing physician if questions or concerns Unchanged buPROPion (buPROPion 300 mg/ 24 hours ER Tab) 1 Tablets By Mouth Every 24 hours Duration: 90 Days Contact prescribing physician if questions or concerns Unchanged cetirizine (cetirizine 10 mg oral capsule) 1 Capsules By Mouth Every day as needed for for allergy symptoms Contact prescribing physician if questions or concerns Unchanged cholecalciferol (cholecalciferol 2000 intl units oral tablet (Vitamin D3)) 1 Tablets By Mouth Every day Contact prescribing physician if questions or concerns Uncha (more content not included)... Normal [facility] Family Medicine Office/Clini c Noteon 08-26-2024 Family Medicine Office/Clinic Note Family Medicine Office/Clinic Note Chief Complaint The patient presents with persistent cough and a stye. HPI Staff C/O: stye Onset: 3 weeks Location: left upper outer eyelid Symptoms:pain, redness OTC: warm compresses and squeezing History of Present Illness The patient is a 58-year-old female presenting with symptoms of acute cough and hordeolum externum. The acute cough has persisted for approximately 12 weeks, initially emerging after influenza symptoms. Congestion associated with the cough has resulted in sleep disturbances. Treatment attempts with hllg-hzb-gupkwuw cold medications have been ineffective. Is requesting a cough syrup to be called in. The hordeolum externum has been present with episodes of swelling and visual obstruction. Warm compresses have been trialed, but without substantial resolution of symptoms. The patient erroneously applied hydrogen peroxide to the lesion, potentially impacting healing. She also admitted that she picked at and try to squeeze stuff out of it without any drainage. Her insurance sales specialist looked at it and suggested her to follow-up with her PCP for antibiotics. Review of Systems PHQ Score Initial Depression Screen Score: 0 SCORE - Eyes: Reports swelling and temporary visual obstruction associated with a stye. - Respiratory: Reports persistent cough with deep chest congestion and prior febrile symptoms. Physical Exam Vitals & Measurements T: 36.7 ???C(Temporal Artery) HR: 106(Peripheral) RR: 18 BP: 134/86 SpO2: 98% HT: 64 in HT: 163 cm WT: 99.6 kg WT: 219.58 lb BMI: 37.49 Constitutional: Well-groomed, well-nourished, no signs of acute distress. HEENT: Head normocephalic, sclera is clear. Red, raised area noted to the upper eyelid with a noticeable small scabbed. Cardiothoracic: Heart rate and rhythm is regular strong, normal S1 and S2. No murmurs auscultated. Respiratory: Lung sounds are clear throughout, respirations regular nonlabored. Abdomen/GI: Abdomen soft nondistended. Musculoskeletal: Gait is steady, full range of motion. Integument: No rashes or lesions noted to the exposed skin. Psychiatric: Alert and oriented x 3, pleasant, no mood changes. Assessment/Plan 1. Hordeolum externum (stye) (H00.019: Hordeolum externum unspecified eye, unspecified eyelid) Initiate a seven-day course of Augmentin to address and prevent infection due to manipulation of the stye. Recommend regular application of warm compresses and cleansing with baby shampoo. Monitor the condition for reduction in swelling and resolution of symptoms. 2. Acute cough (R05.1: Acute cough) Residual cough from previous upper respiratory. Prescribe a decongestant cough syrup as needed every six hours to alleviate chronic cough and congestion following influenza. The focus is on managing symptoms effectively to enhance the patient's rest and respiratory function. 3. Class 2 obesity due to excess calories in adult (E66.09: Other obesity due to excess calories) Calorie restriction along with routine aerobic exercises discussed in order to avoid hypertension, osteoarthritis, metabolic syndrome and/or worsening of chronic underlying disease states. Encouraged to limit sugary drinks, foods high in sodium, as well as alcohol. 4. BMI 37.0-37.9, adult (Z68.37: Body mass index [BMI] 37.0-37.9, adult) see #2 Orders: amoxicillin-clavulan ate, 1 tab(s), Oral, q12hr for 7 day(s), 14 tab(s), Refill(s) 0, [id number], 163, cm, 08/26/24 16:20:00 EST, Height/Length Dosing, 99.6, kg, 08/26/24 16:20:00 EST, Weight Dosing brompheniramine/dext romethorphan/PSE, 5 mL, Oral, QID for cough and congestion, 200 mL, Refill(s) 0, [id number], 163, cm, 08/26/24 16:20:00 EST, Height/Length Dosing, 99.6, kg, 08/26/24 16:20:00 EST, Weight Dosing Misc Prescription, Permanent Handicap Paking Placcard (5 year), See Instructions, 1 EA, 0, Handicap Parking, limited 5 years: 08/26/2029, Supply This note was created by the assist of a speech-recognition program although the intention is to generate a document that actually reflects the content of the visit, no guarantees can be provided that every mistake has been identified and corrected by editing. Follow-up With When Contact Information Khari MSN, SUPERVISOR [employer]-POLYSOMNOGRAPHIC TECHYolanda Only if needed [address] [place] [phone] Additional Instructions: Patient Education Cough, Adult Stye Problem List/Past Medical History Ongoing Abdominal wall abscess Abdominal wall hernia Abnormal mammography Anxiety Benign hypertension with chronic kidney disease, stage IV Breast cancer screening by mammogram Chronic kidney disease (CKD), stage IV (severe) Chronic obstructive pulmonary disease (COPD) Class 2 obesity due to excess calories in adult Cough DJD (degenerative joint disease) Extensor tendonitis of foot Fatigue Fibromyalgia GERD (gastroesophageal reflux disease) Hordeolum externum (stye) Hyperglycemia Hyperlipidemia Hypertension Insomnia I (more content not included)... Normal [facility] Comment on above: Result Comment: Elec tronically Signed By: Khari MISHRA, SUPERVISOR [employer]- MICHAEL, Yolanda Almodovar\.br\Date and Time Signed: 08/26/24 17:18 EST Erythrocyte distribution wid th Auto (RBC) [Ratio]on 08-23-2024 Erythrocyte distribution width (RBC) [Ratio] Erythrocyte distribution width [Ratio] by Automated count 11.0-15.0 [facility] Estimated glomerular filtrat ion rate (GFR) non- Americanon 08-23-2024 GFR/1.73 sq M.predicted among non-blacks MDRD (S/P/Bld) [Vol rate/Area] Estimated glomerular filtration rate (GFR) non- Low >=60 mL/min/1.73m 2 [facility] Hematocrit Auto (Bld) [Volum e fraction]on 08-23-2024 Hematocrit (Bld) [Volume fraction] Hematocrit [Volume Fraction] of Blood by Automated count 36.0-48.0 [facility] Hemoglobin [Mass/volume] in Bloodon 08-23-2024 Hemoglobin (Bld) [Mass/Vol] Hemoglobin [Mass/volume] in Blood 12.0-16.0 [facility] - Chemistry and C hemistry - challengeon 08-23-2024 Albumin [Mass/Vol] 3.5 g/dL 3.4-5.0 [facility] Calcium [Mass/Vol] 9.1 mg/dL 8.5-10.1 [facility] Chloride [Moles/Vol] 107 mmol/L 98-107 [facility] CO2 [Moles/Vol] 26.5 mmol/L 21.0-32.0 [facility] Creatinine [Mass/Vol] 2.15 mg/dL High 0.55-1.02 [facility] GFR/1.73 sq M.predicted MDRD (S/P/Bld) [Vol rate/Area] 28 mL/min/{1.73_m2} Low >=60 mL/min/1.73m 2 [facility] Glucose [Mass/Vol] 92 mg/dL 74-106 [facility] Magnesium [Mass/Vol] 1.6 mg/dL Low 1.8-2.4 [facility] Potassium [Moles/Vol] 4.4 mmol/L 3.5-5.1 [facility] Sodium [Moles/Vol] 140 mmol/L 136-145 [facility] Urate [Mass/Vol] 5.9 mg/dL 2.6-6.0 [facility] Urea nitrogen [Mass/Vol] 29.0 mg/dL High 7.0-18.0 [facility] Urea nitrogen/Creatinin e [Mass ratio] 13.5 mg/mg [facility] - Urinalysison Protein (U) [Mass/Vol] 29.4 mg/dL High <=11.9 [facility] Leukocytes [#/volume] correc roberto for nucleated erythrocytes in Blood by Automated counon 08-23-2024 WBC corrected for nucl RBC Auto (Bld) [#/Vol] Leukocytes [#/volume] corrected for nucleated erythrocytes in Blood by Automated coun 4.0-11.0 [facility] MCH Auto (RBC) [Entitic mass ]on 08-23-2024 MCH (RBC) [Entitic mass] MCH [Entitic mass] by Automated count 26.7-34.0 [facility] MCHC Auto (RBC) [Mass/Vol]on 08-23-2024 MCHC (RBC) [Mass/Vol] MCHC [Mass/volume] by Automated count 29.9-35.2 [facility] MCV Auto (RBC) [Entitic vol] on 08-23-2024 MCV (RBC) [Entitic vol] MCV [Entitic volume] by Automated count 81.0-99.0 [facility] No Panel Informationon 08-23 25-Hydroxy Vitamin D Total 69.2 ng/mL [facility] Comment on above: <20 ng/mL Vit D defi cient20-<30 ng/mL Vit D [id number] ng/mL Vit D sufficient>100 ng/mL Potential Toxicity Parathyroid Hormone (Intact) 93 pg/mL Abnormal 15-65 [facility] Comment on above: Performed at: [address], [place] [id number] Director: Camacho Maurer PhD, Phone: [phone] Phosphorus Level 3.3 mg/dL 2.6-4.7 [facility] Urine Random Creatinine 172.00 mg/dL 20.00-300.00 [facility] Platelet mean volume Auto (B ld) [Entitic vol]on 08-23-2024 Platelet mean volume (Bld) [Entitic vol] Platelet mean volume [Entitic volume] in Blood by Automated count 9.5-13.5 [facility] Platelets Auto (Bld) [#/Vol] on 08-23-2024 Platelets (Bld) [#/Vol] Platelets [#/volume] in Blood by Automated count 150-450 [facility] RBC Auto (Bld) [#/Vol]on RBC (Bld) [#/Vol] Erythrocytes [#/volume] in Blood by Automated count Low 4.20-5.40 [facility] Serum or plasma anion gap de terminationon 08-23-2024 Anion gap [Moles/Vol] Serum or plasma anion gap determination [facility] Urine protein/creatinine rat ioon 08-23-2024 Protein/Creatinine (U) [Ratio] Urine protein/creatinine ratio [facility] Ambulatory Visit Summaryon 1 08-08-2023 Ambulatory Visit Summary Ambulatory Visit Summary IMANI MCCLOUD :1965 Visit Date:06/07/2024 Ambulatory Visit Instructions Your Diagnosis Fibromyalgia Benign hypertension with chronic kidney disease, stage IV Chronic kidney disease (CKD), stage IV (severe) Hyperlipidemia Class 2 obesity due to excess calories in adult BMI 38.0-38.9,adult Lipid screening Medication management Immunization due Your Care Team Attending Physician - Khari MSN, CINDY-Yolanda RODRIGUEZ Primary Care Physician - Khari MSN, SUPERVISOR [employer]-Yolanda RODRIGUEZ This Is Your Medications List Misc [...] EDT With: Khari MISHRA, Yolanda LUNA Where: [address] [address]- You Need to Schedule the Following Appointments Follow Up with nurse visit When: Within 1 week Comments: fasting labs Where: Follow Up with Khari MISHRA, Yolanda LUNA When: In 3 months Comments: chronic care Where: [address] [place] [phone] You Need to Complete the Following CBC [...] 30 Days DX M79.7 Fibromyalgia Pickup at [facility]/pharmacy #[id number] Unchanged albuterol (Albuterol (Eqv-Proventil HFA) 90 mcg/ inh inhalation aerosol) 2 Puffs Inhalation Every 4 hours Pickup at [facility]/pharmacy #[id number] Unchanged Misc Prescription (Nebulizer tubing and [...] inhalation aerosol (more content not included)... Normal [facility] Family Medicine Office/Clini c Noteon 06-07-2024 [...] dose lung CT: _ List of Providers: Engineering Mgr: Dr Murphy LABS Cr/eGFR: eGFR: 24 mL/min/1.73 [...] limited quantity. The patient also mentions her insurance sales specialist has started her on 400 mg magnesium [...] with the Percocet, which she does take [id number]. Did express that the weather does affect [...] of the (more content not included)... Normal [facility] Comment on above: Result Comment: Elec tronically Signed By: Khari MSN, SUPERVISOR [employer]- POLYSOMNOGRAPHIC TECH, Yolanda Almodovar\.br\Date and Time Signed: 06/07/24 15:55 EST Erythrocyte distribution wid th Auto (RBC) [Ratio]on 02-11-2024 Erythrocyte distribution width (RBC) [Ratio] 13.5 % 11.0-15.0 [facility] Estimated glomerular filtrat ion rate (GFR) non- Americanon 02-11-2024 GFR/1.73 sq M.predicted among non-blacks MDRD (S/P/Bld) [Vol rate/Area] 20 mL/min/{1.73_m2} Low >=60 [facility] Fine granular cast count in urine sediment by microscopy (number/low power field )on 02-11-2024 Fine Granular Casts LM.LPF (Urine sed) [#/Area] RARE [facility] Hematocrit Auto (Bld) [Volum e fraction]on 02-11-2024 Hematocrit (Bld) [Volume fraction] 40.2 % 36.0-48.0 [facility] Hemoglobin [Mass/volume] in Bloodon 02-11-2024 Hemoglobin (Bld) [Mass/Vol] 13.6 g/dL 12.0-16.0 [facility] - Chemistry and C hemistry - challengeon 02-11-2024 Albumin [Mass/Vol] 3.6 g/dL 3.4-5.0 [facility] Calcium [Mass/Vol] 9.1 mg/dL 8.5-10.1 [facility] Chloride [Moles/Vol] 103 mmol/L 98-107 [facility] CO2 [Moles/Vol] 25.5 mmol/L 21.0-32.0 [facility] Creatinine [Mass/Vol] 2.43 mg/dL High 0.55-1.02 [facility] GFR/1.73 sq M.predicted MDRD (S/P/Bld) [Vol rate/Area] 25 mL/min/{1.73_m2} Low >=60 [facility] Glucose [Mass/Vol] 100 mg/dL 74-106 [facility] Magnesium [Mass/Vol] 1.5 mg/dL Low 1.8-2.4 [facility] Potassium [Moles/Vol] 4.2 mmol/L 3.5-5.1 [facility] Sodium [Moles/Vol] 137 mmol/L 136-145 [facility] Urate [Mass/Vol] 6.4 mg/dL High 2.6-6.0 [facility] Urea nitrogen [Mass/Vol] 38.0 mg/dL High 7.0-18.0 [facility] Urea nitrogen/Creatinin e [Mass ratio] 15.6 mg/mg [facility] Bilirubin Ql (U) SMALL Abnormal NEGATIVE [facility] Glucose (U) [Mass/Vol] Negative NEGATIVE [facility] Ketones Ql (U) Negative NEGATIVE [facility] pH (U) 6.0 [pH] 5.0-9.0 [facility] Specific gravity (U) [Rel density] 1.025 1.005-1.025 [facility] Urobilinogen Qn (U) 1.0 {Shannan'U}/dL 0.2-1.0 [facility] Laboratory - Specimen inform ationon 02-11-2024 Appearance (U) SL CLOUDY CLEAR [facility] Color (U) YELLOW YELLOW [facility] - Urinalysison Hyaline casts LM Ql (Urine sed) FEW [facility] Leukocyte esterase Test strip Ql (U) Negative NEGATIVE [facility] Mucus Ql (Urine sed) SMALL Abnormal NONE SEEN [facility] Nitrite Ql (U) Negative NEGATIVE [facility] Protein (U) [Mass/Vol] 37.3 mg/dL High <=11.9 [facility] Protein Ql (U) Negative NEG/TRACE [facility] Leukocytes [#/volume] correc roberto for nucleated erythrocytes in Blood by Automated counon 02-11-2024 WBC corrected for nucl RBC Auto (Bld) [#/Vol] 8.3 10 3/uL 4.0-11.0 [facility] MCH Auto (RBC) [Entitic mass ]on 02-11-2024 MCH (RBC) [Entitic mass] 32.2 pg 26.7-34.0 [facility] MCHC Auto (RBC) [Mass/Vol]on 02-11-2024 MCHC (RBC) [Mass/Vol] 33.8 g/dL 29.9-35.2 [facility] MCV Auto (RBC) [Entitic vol] on 02-11-2024 MCV (RBC) [Entitic vol] 95.0 fL 81.0-99.0 [facility] No Panel Informationon 02-10 25-Hydroxy Vitamin D Total 70.4 ng/mL [facility] Comment on above: <20 ng/mL Vit D defi cient20-<30 ng/mL Vit D fcndckugmuuo73-257 ng/mL Vit D sufficient>100 ng/mL Potential Toxicity Parathyroid Hormone (Intact) 151 pg/mL Abnormal [facility] Comment on above: Performed at: [facility] [employer] [address] [id number] Director: Camacho Maurer PhD, Phone: [phone] Phosphorus Level 3.3 mg/dL 2.6-4.7 [facility] Urine Bacteria MODERATE #/HPF Abnormal NONE SEEN [facility] Urine Occult Blood TRACE-I NEGATIVE [facility] Urine Other Casts SEEN #/LPF Abnormal NONE SEEN [facility] Urine Other Crystals None Seen #/HPF None Seen [facility] Urine Random Creatinine 265.89 mg/dL 20.00-300.00 [facility] Urine RBC 2-5 #/HPF Abnormal 0-2 [facility] Urine Squamous Epithelial Cells MODERATE #/LPF Abnormal NONE/RARE [facility] Urine Transitional Epithelial Cells RARE #/LPF Abnormal NONE SEEN [facility] Urine WBC 5-10 #/HPF Abnormal NONE SEEN [facility] Platelet mean volume Auto (B ld) [Entitic vol]on 02-11-2024 Platelet mean volume (Bld) [Entitic vol] 10.5 fL 9.5-13.5 [facility] Platelets Auto (Bld) [#/Vol] on 02-11-2024 Platelets (Bld) [#/Vol] 249 10 3/uL 150-450 [facility] RBC Auto (Bld) [#/Vol]on RBC (Bld) [#/Vol] 4.23 10 6/uL 4.20-5.40 [facility] Serum or plasma anion gap de terminationon 02-11-2024 Anion gap [Moles/Vol] 12.7 mmol/L [facility] Urine protein/creatinine rat ioon 02-11-2024 Protein/Creatinine (U) [Ratio] 0.14 [facility] Ambulatory Visit Summaryon 0 01-12-2024 Ambulatory Visit Summary Ambulatory Visit Summary IMANI MCCLOUD :1965 Visit Date:01/12/2024 Ambulatory Visit Instructions Your Diagnosis Fibromyalgia Hypertension Chronic kidney disease (CKD), stage IV (severe) Hyperlipidemia BMI 39.0-39.9,adult Breast cancer screening by mammogram Class 2 obesity due to excess calories in adult Your Care Team Attending Physician - Khari MSN, SUPERVISOR [employer]-POLYSOMNOGRAPHIC TECHYolanda Primary Care Physician - Khari MSN, SUPERVISOR [employer]-POLYSOMNOGRAPHIC TECHYolanda This Is Your Medications List acetaminophen-oxycod one [...] Thursday 1:00 PM EDT With: Khari MISHRA, SUPERVIS[employer]-Yolanda RODRIGUEZ Where: [facility] [place] [facility] [address] [place] [address]- \.br\ You Need to Schedule the Following Appointments\.br\ Follow Up with Khari MISHRA, CINDY-Yolanda RODRIGUEZ When: In 1 month\.br\ Comments:\.br\ mood f/u\.br\ Where:\.br\ [address]\.br\ [place] [address]\.br\ You Need to Complete the Following\.br\ MA Mamm Screen w/CAD if perf and 3D Jayy, 01/12/24, Routine, Order for Future Visit, Transport Mode: Ambulatory, Reason: Screening, No, Breast cancer screening by mammogram, pp_set_radiology_sub specialty, Required & Missing, Refugio Smith\.br\ Medications\.br\ What How Much When Instructions\.br\ New methylPREDNISolone (Medrol 4 mg Tab) 1 Packets By Mouth As Directed Duration: 6 Days as directed on package labeling Pickup at [facility]/pharmacy #[id number]\.br\ Changed buPROPion (buPROPion 300 mg/ 24 hours ER Tab) 1 Tablets By Mouth Every 24 hours Duration: 90 Days Pickup at [facility]/pharmacy #[id number]\.br\ Unchanged acetaminophen-oxycod one (Percocet 5 mg-325 mg oral tablet) 1 Tablets By Mouth Every 6 hours DX M79.7 Fibromyalgia Pickup at [facility]/pharmacy #[id number]\.br\ Unchanged albuterol (Albuterol (Eqv-Proventil HFA) 90 [...] if questions or concerns \.br\ Pharmacy Information\.br\ [facility]/pharmacy #[id number]: [address], [place] [id number] [phone]\.br\ Allergies\.br\ gabapentin (Throat tightness, Nausea, Stomach upset)\.br\ [...] disease, diabetes, high cholesterol, or kid Huff [facility] Office/Clini c Noteon [...] Labs: 03/2023 Eye exam: 2020 done by [facility] in [place] Dental exam: 2022 tooth pulled Smokers/ former smokers: quit 03/[address]: _ List of Providers: Engineering Mgr: Dr Murphy LABS Cr/eGFR: eGFR: 24 mL/min/1.73 [...] (04/24/23 09:34:00) VLDL: 37 mg/dL (04/24/23 09:34:00) [facility] Schneider Appt. Date: 03/10/2024 1:00 PM [...] She is under the care of a insurance sales specialist, Dr. Murphy, at [facility], with a follow-up appointment scheduled for either [...] circumference is (more content not included)... Normal [facility] Comment on above: Result Comment: Elec tronically Signed By: Khair MISHRA, SUPERVISOR [employer]- POLYSOMNOGRAPHIC TECH, Yolanda Almodovar\.br\Date and Time Signed: 01/12/24 17:07 EDT\.br\Electronically Co-Signed By: Theresa Majano.br\Date and Time Co-Signed: 01/12/24 16:37 EDT No Panel Informationon 09-27 Parathyroid Hormone (Intact) 85 pg/mL 15-65 [facility] Comment on above: Performed at: [place] [id number] Director: Camacho Maurer PhD, Phone: [phone] PTH INTACTon 11-22-2022 PTH, Intact 20 pg/mL Normal 15-65 [facility] Comment on above: Performed By: #### H H #### [facility] [address] [place] [address] Dr. Madison Adkins GLYCOHEMOGLOBIN A1Con 2022 ADA RECOMMENDATION SEE BELOW Normal [facility] Comment on above: Result Comment: ADA RECOMMENDED LIMIT 4.0 - 6.0 ADA THERAPEUTIC TARGET < 7.0 ACTION SUGGESTED > 7.0 Performed By: #### A 1C #### [facility] [address] [place] [address] Dr. Madison Adkins Glucose [Mass/Vol] 123 mg/dL Normal [facility] Comment on above: Performed By: #### A 1C #### [facility] [address] [place] [address] Dr. Madison Adkins HbA1c (Bld) [Mass fraction] 5.9 % Normal 4.5-6.2 [facility] Comment on above: Performed By: #### A 1C #### [facility] [address] [place] [address] Dr. Madison Adkins HEMOGRAM AND PLATELon 2022 Hematocrit (Bld) [Volume fraction] 41.7 % Normal 36.0-48.0 [facility] Comment on above: Performed By: #### H H #### [facility] [address] [place] [address] Dr. Madison Adkins Hemoglobin (Bld) [Mass/Vol] 13.6 g/dL Normal 12.0-16.0 [facility] Comment on above: Performed By: #### H H #### [facility] [address] [place] [address] Dr. Madison Adkins MCH (RBC) [Entitic mass] 31.1 pg Normal 26.7-34.0 [facility] Comment on above: Performed By: #### H H #### [facility] [address] [place] [address] Dr. Madison Adkins MCHC (RBC) [Mass/Vol] 32.6 g/dL Normal 29.9-35.2 [facility] Comment on above: Performed By: #### H H #### [facility] [address] [place] [address] Dr. Madison Adkins MCV (RBC) [Entitic vol] 95.2 fL Normal 81.0-99.0 [facility] Comment on above: Performed By: #### H H #### [facility] [address] [place] [address] Dr. Madison Adkins PLT 256 103/ul Normal 150-450 [facility] Comment on above: Performed By: #### H H #### [facility] [address] [place] [address] Dr. Madison Adkins RBC 4.38 106/ul Normal 4.20-5.40 [facility] Comment on above: Performed By: #### H H #### [facility] [address] [place] [address] Dr. Madison Adkins WBC 7.0 103/ul Normal 4.0-11.0 [facility] Comment on above: Performed By: #### H H #### [facility] [address] [place] [address] Dr. Madison Adkins MAGNESIUMon 11-21-2022 Magnesium [Mass/Vol] 1.7 mg/dL Critically low 1.8-2.4 [facility] Comment on above: Performed By: #### M G, RENAL, URIC #### [facility] [address] [place] [address] Dr. Madison Adkins RENAL FUNCTION PANELon 11-21 Albumin [Mass/Vol] 3.4 g/dL Normal 3.4-5.0 [facility] Comment on above: Performed By: #### M G, RENAL, URIC #### [facility] [address] [place] [address] [address] Madison Adkins Calcium [Mass/Vol] 9.2 mg/dL Normal 8.5-10.1 [facility] Comment on above: Performed By: #### M G, RENAL, URIC #### [facility] [address] [place] [address] [address] Madison Adkins Chloride [Moles/Vol] 103 mmol/L Normal 98-107 [facility] Comment on above: Performed By: #### M G, RENAL, URIC #### [facility] [address] [place] [address] Dr. Madison Adkins CO2 [Moles/Vol] 25.5 mmol/L Normal 21.0-32.0 [facility] Comment on above: Performed By: #### M G, RENAL, URIC #### [facility] [address] [place] [address] Dr. Madison Adkins Creatinine [Mass/Vol] 2.14 mg/dL Critically high 0.55-1.02 [facility] Comment on above: Performed By: #### M G, RENAL, URIC #### [facility] [address] [place] [address] Dr. Madison Adkins EGFR-AF CYPRIOT 29 mL/min/1.73m2 Critically low >=60 [facility] Comment on above: Performed By: #### M G, RENAL, URIC #### [facility] [address] [place] [address] Dr. Madison Adkins EGFR-NON AF CYPRIOT 24 mL/min/1.73m2 Critically low >=60 [facility] Comment on above: Performed By: #### M G, RENAL, URIC #### [facility] [address] [place] [address] Dr. Madison Adkins Glucose [Mass/Vol] 107 mg/dL Critically high 74-106 [facility] Comment on above: Performed By: #### M G, RENAL, URIC #### [facility] [address] [place] [address] Dr. Madison Adkins Phosphate [Mass/Vol] 3.6 mg/dL Normal 2.6-4.7 [facility] Comment on above: Performed By: #### M G, RENAL, URIC #### [facility] [address] [place] [address] Dr. Madison Adkins Potassium [Moles/Vol] 4.3 mmol/L Normal 3.5-5.1 [facility] Comment on above: Performed By: #### M G, RENAL, URIC #### [facility] [address] [place] [address] Dr. Madison Adkins Sodium [Moles/Vol] 139 mmol/L Normal 136-145 [facility] Comment on above: Performed By: #### M G, RENAL, URIC #### [facility] [address] [place] [address] Dr. Madison Adkins Urea nitrogen [Mass/Vol] 36.0 mg/dL Critically high 7.0-18.0 [facility] Comment on above: Performed By: #### M Rafael, RENAL, URIC #### [facility] [address] [place] [address] Dr. Madison Adkins UA RANDOM W/MICROSCOPICon BACTERIA TRACE Abnormal NONE SEEN [facility] Comment on above: Performed By: #### H H #### [facility] [address] [place] [address] Dr. Madison Adkins Bilirubin Ql (U) Negative Normal NEGATIVE [facility] Comment on above: Performed By: #### H H #### [facility] [address] [place] [address] Dr. Madison Adkins CAST NONE SEEN Normal NONE SEEN [facility] Comment on above: Performed By: #### H H #### [facility] [address] [place] [address] Dr. Madison Adkins Clarity (U) CLEAR Normal CLEAR [facility] Comment on above: Performed By: #### H H #### [facility] [address] [place] [address] Dr. Madison Adkins Color (U) LT. YELLOW Normal YELLOW [facility] Comment on above: Performed By: #### H H #### [facility] [address] [place] [address] Dr. Madison Adkins Crystals LM Nom (Urine sed) NONE SEEN Normal NONE SEEN [facility] Comment on above: Performed By: #### H H #### [facility] [address] [place] [address] Dr. Madison Adkins Epithelial cells LM Ql (Urine sed) MODERATE Abnormal NONE SEEN /RARE [facility] Comment on above: Performed By: #### H H #### [facility] [address] [place] [address] Dr. Madison Adkins Glucose Ql (U) Negative Normal NEGATIVE [facility] Comment on above: Performed By: #### H H #### [facility] [address] [place] [address] Dr. Madison Adkins Hemoglobin Ql (U) TRACE-INTACT Abnormal NEGATIVE [facility] Comment on above: Performed By: #### H H #### [facility] [address] [place] [address] Dr. Madison Adkins Ketones Ql (U) Negative Normal NEGATIVE [facility] Comment on above: Performed By: #### H H #### [facility] [address] [place] [address] Dr. Madison Adkins LEUKOCYTES Negative Normal NEGATIVE [facility] Comment on above: Performed By: #### H H #### [facility] [address] [place] [address] Dr. Madison Adkins MUCOUS NONE SEEN Normal NONE SEEN [facility] Comment on above: Performed By: #### H H #### [facility] [address] [place] [address] Dr. Madison Adkins Nitrite Ql (U) Negative Normal NEGATIVE [facility] Comment on above: Performed By: #### H H #### [facility] [address] [place] [address] Dr. Madison Adkins pH (U) 5.5 [pH] Normal 5-9 [facility] Comment on above: Performed By: #### H H #### [facility] [address] [place] [address] Dr. Madison Adkins RBC 0-2 Normal 0-2 [facility] Comment on above: Performed By: #### H H #### [facility] [address] [place] [address] Dr. Madison Adkins SPEC GRAVITY 1.020 Normal 1.005-<=1.025 [facility] Comment on above: Performed By: #### H H #### [facility] [address] [place] [address] Dr. Madison Adkins UA PROTEIN Negative Normal NEGATIVE/ TRACE [facility] Comment on above: Performed By: #### H H #### [facility] [address] [place] [address] Dr. Madsion Adkins Urobilinogen Qn (U) 0.2 {Shannan'U}/dL Normal 0.2 - 1.0 [facility] Comment on above: Performed By: #### H H #### [facility] [address] [place] [address] Dr. Madison Adkins WBC NONE SEEN Normal NONE SEEN [facility] Comment on above: Performed By: #### H H #### [facility] [address] [place] [address] Dr. Madison Adkins URIC ACID SERUMon 11-21-2022 Urate [Mass/Vol] 7.3 mg/dL Critically high 2.6-6.0 [facility] Comment on above: Performed By: #### M G, RENAL, URIC #### [facility] [address] [place] [address] Dr. Madison Adkins URINE T PROTEIN CREAT RATIOo n 11-21-2022 Protein (U) [Mass/Vol] 17.3 mg/dL Critically high <=12.0 [facility] Comment on above: Performed By: #### U RTPCR #### [facility] [address] [place] [address] Dr. Madison Adkins UR PROT CREAT RAT 0.18 Normal [facility] Comment on above: Performed By: #### U RTPCR #### [facility] [address] [place] [address] Dr. Madison Adkins URINE CREAT 95.50 mg/dL Normal 20.00-300.00 [facility] Comment on above: Performed By: #### U RTPCR #### [facility] [address] [place] [address] Dr. Madison Adkins VITAMIN D 25 OHon 11-21-2022 VIT D 25-OH 76.7 ng/mL Normal [facility] Comment on above: Performed By: #### V ITAD #### [facility] [address] [place] [address] Dr. Madison Adkins VIT D RANGES SEE BELOW Normal [facility] Comment on above: Result Comment: <20 ng/mL Vit D deficient 20 - <30 ng/mL Vit D insufficient 30 - 100 ng/mL Vit D sufficient >100 ng/mL Potential Toxicity Performed By: #### V ITAD #### [facility] [address] [place] [address] Dr. Madison Adkins PTH INTACTon 04-30-2022 PTH, Intact 45 pg/mL Normal 15-65 [facility] Comment on above: Performed By: #### P THINT #### [facility] [address] [place] [address] Dr. Madison Adkins HEMOGRAM AND PLATELon 2021 Hematocrit (Bld) [Volume fraction] 40.1 % Normal 36.0-48.0 [facility] Comment on above: Performed By: #### H H #### [facility] [address] [place] [address] Dr. Madison Adkins Hemoglobin (Bld) [Mass/Vol] 13.2 g/dL Normal 12.0-16.0 [facility] Comment on above: Performed By: #### H H #### [facility] [address] [place] [address] Dr. Madison Adkins MCH (RBC) [Entitic mass] 31.5 pg Normal 26.7-34.0 [facility] Comment on above: Performed By: #### H H #### [facility] [address] [place] [address] Dr. Madison Adkins MCHC (RBC) [Mass/Vol] 32.9 g/dL Normal 29.9-35.2 [facility] Comment on above: Performed By: #### H H #### [facility] [address] [place] [address] [address] Madison Adkins MCV (RBC) [Entitic vol] 95.7 fL Normal 81.0-99.0 [facility] Comment on above: Performed By: #### H H #### [facility] [address] [place] [address] [address] Madison Adkins PLT 277 103/ul Normal 150-450 [facility] Comment on above: Performed By: #### H H #### [facility] [address] [place] [address] [address] Madison Adkins RBC 4.19 106/ul Critically low 4.20-5.40 [facility] Comment on above: Performed By: #### H H #### [facility] [address] [place] [address] Dr. Madison Adkins WBC 8.9 103/ul Normal 4.0-11.0 [facility] Comment on above: Performed By: #### H H #### [facility] [address] [place] [address] Dr. Madison Adkins MAGNESIUMon 04-29-2022 Magnesium [Mass/Vol] 1.7 mg/dL Critically low 1.8-2.4 [facility] Comment on above: Performed By: #### H H #### [facility] [address] [place] [address] Dr. Madison Adkins RENAL FUNCTION PANELon 04-29 Albumin [Mass/Vol] 3.6 g/dL Normal 3.4-5.0 [facility] Comment on above: Performed By: #### H H #### [facility] [address] [place] [address] [address] Madison Adkins Calcium [Mass/Vol] 9.0 mg/dL Normal 8.5-10.1 [facility] Comment on above: Performed By: #### H H #### [facility] [address] [place] [address] [address] Madison Adkins Chloride [Moles/Vol] 107 mmol/L Normal 98-107 [facility] Comment on above: Performed By: #### H H #### [facility] [address] [place] [address] [address] Madison Adkins CO2 [Moles/Vol] 28.2 mmol/L Normal 21.0-32.0 [facility] Comment on above: Performed By: #### H H #### [facility] [address] [address] [address] Madison Adkins Creatinine [Mass/Vol] 1.84 mg/dL Critically high 0.55-1.02 [facility] Comment on above: Performed By: #### H H #### [facility] [address] [address] [address] Madison Adkins EGFR-AF CYPRIOT 34 mL/min/1.73m2 Critically low >=60 [facility] Comment on above: Performed By: #### H H #### [facility] [address] [place] [address] [address] Madison Adkins EGFR-NON AF CYPRIOT 28 mL/min/1.73m2 Critically low >=60 [facility] Comment on above: Performed By: #### H H #### [facility] [address] [address] [address] Madison Adkins Glucose [Mass/Vol] 106 mg/dL Normal 74-106 [facility] Comment on above: Performed By: #### H H #### [facility] [address] [address] [address] Madison Adkins Phosphate [Mass/Vol] 3.3 mg/dL Normal 2.6-4.7 [facility] Comment on above: Performed By: #### H H #### [facility] [address] [address] [address] Madison Adkins Potassium [Moles/Vol] 4.7 mmol/L Normal 3.5-5.1 [facility] Comment on above: Performed By: #### H H #### [facility] [address] [address] [address] Madison Adkins Sodium [Moles/Vol] 142 mmol/L Normal 136-145 [facility] Comment on above: Performed By: #### H H #### [facility] [address] [address] [address] Madison Adkins Urea nitrogen [Mass/Vol] 31.0 mg/dL Critically high 7.0-18.0 [facility] Comment on above: Performed By: #### H H #### [facility] Laboratory [address] [address] [address] Madison Adkins UA RANDOM W/MICROSCOPICon BACTERIA NONE SEEN Normal NONE SEEN [facility] Comment on above: Performed By: #### U AMIC #### [facility] Laboratory [address] [address] [address] Madison Adkins Bilirubin Ql (U) Negative Normal NEGATIVE [facility] Comment on above: Performed By: #### U AMIC #### [facility] Laboratory [address] [place] [address] Dr. Madison Adkins CAST NONE SEEN Normal NONE SEEN [facility] Comment on above: Performed By: #### U AMIC #### [facility] Laboratory [address] [place] [address] Dr. Madison Adkins Clarity (U) CLEAR Normal CLEAR [facility] Comment on above: Performed By: #### U AMIC #### [facility] Laboratory [address] [place] [address] Dr. Madison Adkins Color (U) LT. YELLOW Normal YELLOW [facility] Comment on above: Performed By: #### U AMIC #### [facility] Laboratory [address] [address] [address] Madison Adkins Crystals LM Nom (Urine sed) NONE SEEN Normal NONE SEEN [facility] Comment on above: Performed By: #### U AMIC #### [facility] Laboratory [address] [address] [address] Madison Adkins Epithelial cells LM Ql (Urine sed) MODERATE Abnormal NONE SEEN /RARE [facility] Comment on above: Performed By: #### U AMIC #### [facility] Laboratory [address] [place] [address] Dr. Madison Adkins Glucose Ql (U) Negative Normal NEGATIVE [facility] Comment on above: Performed By: #### U AMIC #### [facility] Laboratory [address] [address] [address] Madison Adkins Hemoglobin Ql (U) Negative Normal NEGATIVE [facility] Comment on above: Performed By: #### U AMIC #### [facility] Laboratory [address] [address] [address] Madison Adkins Ketones Ql (U) Negative Normal NEGATIVE [facility] Comment on above: Performed By: #### U AMIC #### [facility] Laboratory [address] [address] [address] Madison Adkins LEUKOCYTES Negative Normal NEGATIVE [facility] Comment on above: Performed By: #### U AMIC #### [facility] Laboratory [address] [address] [address] Madison Adkins MUCOUS NONE SEEN Normal NONE SEEN [facility] Comment on above: Performed By: #### U AMIC #### [facility] Laboratory [address] [address] [address] Madison Adkins Nitrite Ql (U) Negative Normal NEGATIVE [facility] Comment on above: Performed By: #### U AMIC #### [facility] Laboratory [address] [address] [address] Madison Adkins pH (U) 6.0 [pH] Normal 5-9 [facility] Comment on above: Performed By: #### U AMIC #### [facility] Laboratory [address] [address] [address] Madison Adkins RBC NONE SEEN Abnormal 0-2 [facility] Comment on above: Performed By: #### U AMIC #### [facility] Laboratory [address] [address] [address] Madison Adkins SPEC GRAVITY 1.015 Normal 1.005-<=1.025 [facility] Comment on above: Performed By: #### U AMIC #### [facility] Laboratory [address] [place] [address] Dr. Madison Adkins UA PROTEIN Negative Normal NEGATIVE/ TRACE [facility] Comment on above: Performed By: #### U AMIC #### [facility] Laboratory [address] [place], [place] [id number] Dr. Madison Adkins Urobilinogen Qn (U) 0.2 {Shannan'U}/dL Normal 0.2 - 1.0 [facility] Comment on above: Performed By: #### U AMIC #### [facility] Laboratory [address] [place] [address] Dr. Madison Adkins WBC NONE SEEN Normal NONE SEEN [facility] Comment on above: Performed By: #### U AMIC #### [facility] Laboratory [address] [place] [address] Dr. Madison Adkins URIC ACID SERUMon 04-29-2022 Urate [Mass/Vol] 8.3 mg/dL Critically high 2.6-6.0 [facility] Comment on above: Performed By: #### H H #### [facility] Laboratory [address] [place] [address] Dr. Madison Adkins URINE T PROTEIN CREAT RATIOo n 04-29-2022 Protein (U) [Mass/Vol] 14.1 mg/dL Critically high <=12.0 [facility] Comment on above: Performed By: #### H H #### [facility] Laboratory [address] [place] [address] Dr. Madison Adkins UR PROT CREAT RAT 0.18 Normal [facility] Comment on above: Performed By: #### H H #### [facility] Laboratory [address] [place] [address] Dr. Madison Adkins URINE CREAT 77.32 mg/dL Normal 20.00-300.00 [facility] Comment on above: Performed By: #### H H #### [facility] Laboratory [address] [place] [address] Dr. Madison Adkins VITAMIN D 25 OHon 04-29-2022 VIT D 25-OH 51.7 ng/mL Normal [facility] Comment on above: Performed By: #### H H #### [facility] Laboratory [address] [place] [address] Dr. Madison Adkins VIT D RANGES SEE BELOW Normal [facility] Comment on above: Result Comment: <20 ng/mL Vit D deficient 20 - <30 ng/mL Vit D insufficient 30 - 100 ng/mL Vit D sufficient >100 ng/mL Potential Toxicity Performed By: #### H H #### [facility] Laboratory [address] [address] [address] chest wo conon 05-06-2021 CT chest wo con [facility] [place] [address] [place] [address] [address] Scan Report Signed Patient: Imani Mccloud MR#: [id number] : 1965 Acct:[id number] Age/Sex: 55 / F ADM Date: 05/06/21 [facility]: Type: [facility] Attending Dr: Latosha Bryan MD Ordering Provider: Latosha Bryan MD Date of Service: 05/06/21 CT/CT chest wo con: [id number] Copies to: Latosha Bryan MD CT CHEST WITHOUT CONTRAST CLINICAL DATA: Follow-up abnormal outside chest x-ray showing atelectasis or infiltrate at the left base COMPARISON: Chest x-ray [facility] 03/13/2021 Spiral axial unenhanced images were obtained [...] Elyssa Adams M.D.05/06/2021 4:35 PM Dictation Location: [address] [address] Transcribed By: [facility] 05/06/21 0586 Dictated By: Elyssa Adams MD 05/06/21 1618 Signed By: 05/06/21 1635 Normal [facility] PFT pre/post spirometryon PFT pre/post spirometry [facility] [place] [address] [place] [address] Pulmonary Function Signed Patient: Imani Mccloud MR#: [id number] : 1965 Acct:[id number] Age/Sex: 55 / F ADM Date: 04/29/21 Loc: RT Room: Type: [facility] Attending Dr: Sohail Murphy MD Ordering Provider: [...] to 1.78 L or 67% predicted. The DTL16-71% is markedly reduced at 0.95 L/sec or 38% predicted. After administration of bronchodilators, there was an insignificant 10% improvement in the forced vital capacity, but there was a significant 12% improvement in the FEV1 to 1.99 L or 75% predicted. The SDJ51-71% improved, though insignificantly by 12% to 1.06 [...] comparison. Clinical correlation is recommended. Transcribed By: GUANAKO 04/30/21 1109 Dictated By: Yon Martinez MD 04/29/21 1805 Signed By: 04/30/21 1122 Normal [facility] Vital Signs Date Time Vital Sign Value Performing Clinician Facility 11-17-2024 13:51-0400 Body height 162.56 cm [facility] 11-17-2024 13:51-0400 Body mass index (BMI) [Ratio] 38.2 kg/m2 [facility] 11-17-2024 13:51-0400 Body weight 100.92 kg [facility] 11-17-2024 13:51-0400 Diastolic blood pressure 78 mm[Hg] [facility] 11-17-2024 13:51-0400 Heart rate 75 /min [facility] 11-17-2024 13:51-0400 Respiratory rate 16 /min [facility] 11-17-2024 13:51-0400 SaO2% (BldA) [Mass fraction] 100 % [facility] 11-17-2024 13:51-0400 Systolic blood pressure 117 mm[Hg] [facility] 08-25-2024 13:28-0500 Body height 162.56 cm [facility] 08-25-2024 13:28-0500 Body mass index (BMI) [Ratio] 37.6 kg/m2 [facility] 08-25-2024 13:28-0500 Body temperature 96.4 [degF] [facility] 08-25-2024 13:28-0500 Body weight 99.5 kg [facility] 08-25-2024 13:28-0500 Diastolic blood pressure 82 mm[Hg] [facility] 08-25-2024 13:28-0500 Heart rate 85 /min [facility] 08-25-2024 13:28-0500 Respiratory rate 18 /min [facility] 08-25-2024 13:28-0500 SaO2% (BldA) [Mass fraction] 98 % [facility] 08-25-2024 13:28-0500 Systolic blood pressure 156 mm[Hg] [facility] 03-07-2024 13:20-0400 Body height 162.56 cm [facility] 03-07-2024 13:20-0400 Body mass index (BMI) [Ratio] 38.5 kg/m2 [facility] 03-07-2024 13:20-0400 Body temperature 97.7 [degF] [facility] 03-07-2024 13:20-0400 Body weight 101.77 kg [facility] 03-07-2024 13:20-0400 Diastolic blood pressure 92 mm[Hg] [facility] 03-07-2024 13:20-0400 Heart rate 95 /min [facility] 03-07-2024 13:20-0400 Respiratory rate 20 /min [facility] 03-07-2024 13:20-0400 SaO2% (BldA) [Mass fraction] 97 % [facility] 03-07-2024 13:20-0400 Systolic blood pressure 124 mm[Hg] [facility] 02-15-2024 15:190400 Body height 162.56 cm [facility] 02-15-2024 15:19-0400 Body mass index (BMI) [Ratio] 38.7 kg/m2 [facility] 02-15-2024 15:19-0400 Body temperature 96.5 [degF] [facility] 02-15-2024 15:19-0400 Body weight 102.22 kg [facility] 02-15-2024 15:19-0400 Diastolic blood pressure 83 mm[Hg] [facility] 02-15-2024 15:19-0400 Heart rate 86 /min [facility] 02-15-2024 15:19-0400 Respiratory rate 16 /min [facility] 02-15-2024 15:19-0400 SaO2% (BldA) [Mass fraction] 96 % [facility] 02-15-2024 15:19-0400 Systolic blood pressure 120 mm[Hg] [facility] 09-29-2023 15:22-0400 Body height 162.56 cm [facility] 09-29-2023 15:22-0400 Body mass index (BMI) [Ratio] 40 kg/m2 [facility] 09-29-2023 15:22-0400 Body temperature 97.4 [degF] [facility] 09-29-2023 15:22-0400 Body weight 105.8 kg [facility] 09-29-2023 15:22-0400 Diastolic blood pressure 79 mm[Hg] [facility] 09-29-2023 15:22-0400 Heart rate 91 /min [facility] 09-29-2023 15:22-0400 Respiratory rate 16 /min [facility] 09-29-2023 15:22-0400 SaO2% (BldA) [Mass fraction] 97 % [facility] 09-29-2023 15:22-0400 Systolic blood pressure 127 mm[Hg] [facility] 05-26-2023 16:00-0500 Body height 162.56 cm Sohail Carito Other [facility] Other 05-26-2023 16:00-0500 Body mass index (BMI) [Ratio] 40.13 kg/m2 Sohail Carito Other [facility] Other 05-26-2023 16:00-0500 Body temperature 96.7 [degF] Sohail Carito Other [facility] Other 05-26-2023 16:00-0500 Body weight 106.05 kg Sohail Carito Other [facility] Other 05-26-2023 16:00-0500 Diastolic blood pressure 84 mm[Hg] Sohail Carito Other [facility] Other 05-26-2023 16:00-0500 Respiratory rate 20 /min Sohail Carito Other [facility] Other 05-26-2023 16:00-0500 SaO2% (BldA) [Mass fraction] 97 % Sohail Carito Other [facility] Other 05-26-2023 16:00-0500 Systolic blood pressure 139 mm[Hg] Sohail Carito Other [facility] Other 11-27-2022 12:20-0400 Body height 162.56 cm Sohail Carito Other [facility] Other 11-27-2022 12:20-0400 Body mass index (BMI) [Ratio] 41.64 kg/m2 Sohail Carito Other [facility] Other 11-27-2022 12:20-0400 Body temperature 97.2 [degF] Sohail Carito Other [facility] Other 11-27-2022 12:20-0400 Body weight 110.04 kg Sohail Carito Other [facility] Other 11-27-2022 12:20-0400 Diastolic blood pressure 80 mm[Hg] Sohail Carito Other [facility] Other 11-27-2022 12:20-0400 Respiratory rate 20 /min Soahil Carito Other [facility] Other 11-27-2022 12:20-0400 SaO2% (BldA) [Mass fraction] 96 % Sohail Carito Other [facility] Other 11-27-2022 12:20-0400 Systolic blood pressure 130 mm[Hg] Sohail Carito Other [facility] Other 05-08-2022 13:20-0500 Body height 162.56 cm Sohail Carito Other [facility] Other 05-08-2022 13:20-0500 Body mass index (BMI) [Ratio] 41.6 kg/m2 Sohail Carito Other [facility] Other 05-08-2022 13:20-0500 Body temperature 96.8 [degF] Sohail Carito Other [facility] Other 05-08-2022 13:20-0500 Body weight 109.95 kg Sohail Carito Other [facility] Other 05-08-2022 13:20-0500 Diastolic blood pressure 80 mm[Hg] Sohail Carito Other [facility] Other 05-08-2022 13:20-0500 Respiratory rate 20 /min Sohail Carito Other [facility] Other 05-08-2022 13:20-0500 SaO2% (BldA) [Mass fraction] 95 % Sohail Carito Other [facility] Other 05-08-2022 13:20-0500 Systolic blood pressure 133 mm[Hg] Sohail Carito Other [facility] Other 01-14-2022 15:15-0400 Body height 162.56 cm Gusburton Bryan Other [facility] Other 01-14-2022 15:15-0400 Body mass index (BMI) [Ratio] 41.02 kg/m2 Kamal Chaban Other [facility] Other 01-14-2022 15:15-0400 Body temperature 97.1 [degF] Gusal Chaban Other [facility] Other 01-14-2022 15:15-0400 Body weight 108.41 kg Latosha Bellban Other [facility] Other 01-14-2022 15:15-0400 Diastolic blood pressure 90 mm[Hg] Latosha Bellban Other [facility] Other 01-14-2022 15:15-0400 Respiratory rate 20 /min Latosha Bryan Other [facility] Other 01-14-2022 15:15-0400 SaO2% (BldA) [Mass fraction] 98 % Latosha Bryan Other [facility] Other 01-14-2022 15:15-0400 Systolic blood pressure 132 mm[Hg] Latosha Bellban Other [facility] Other 10-10-2021 13:00-0400 Body height 162.56 cm Sohail Carito Other [facility] Other 10-10-2021 13:00-0400 Body mass index (BMI) [Ratio] 41.88 kg/m2 Sohail Carito Other [facility] Other 10-10-2021 13:00-0400 Body temperature 96.8 [degF] Sohail Carito Other [facility] Other 10-10-2021 13:00-0400 Body weight 110.68 kg Sohail Carito Other [facility] Other 10-10-2021 13:00-0400 Diastolic blood pressure 80 mm[Hg] Sohail Carito Other [facility] Other 10-10-2021 13:00-0400 Respiratory rate 20 /min Sohail Carito Other [facility] Other 10-10-2021 13:00-0400 SaO2% (BldA) [Mass fraction] 97 % Sohail Carito Other [facility] Other 10-10-2021 13:00-0400 Systolic blood pressure 139 mm[Hg] Sohail Carito Other [facility] Other 03-28-2021 11:30-0400 Body height 162.56 cm Latosha Bryan Other [facility] Other 03-28-2021 11:30-0400 Body mass index (BMI) [Ratio] 39.65 kg/m2 Latosha Bryan Other [facility] Other 03-28-2021 11:30-0400 Body temperature 96.9 [degF] Latosha Belljolanta Other [facility] Other 03-28-2021 11:30-0400 Body weight 104.78 kg Latosha Belljolanta Other [facility] Other 03-28-2021 11:30-0400 Diastolic blood pressure 80 mm[Hg] Latosha Bellban Other [facility] Other 03-28-2021 11:30-0400 Respiratory rate 20 /min Latosha Bryan Other [facility] Other 03-28-2021 11:30-0400 SaO2% (BldA) [Mass fraction] 98 % Latosha Bryan Other [facility] Other 03-28-2021 11:30-0400 Systolic blood pressure 114 mm[Hg] Latosha Bryan Other [facility] Other Encounters Encounter Date Encounter Type Care Provider Facility Start: 06-06-2025 ambulatory Yolanda L. Khari [facility]ilit y: [facility] Start: 03-07-2025 End: 03-07-2025 ambulatory Yolanda L. Khari Facility: [facility] Start: 12-05-2024 End: 12-05-2024 ambulatory Yolanda L. Khari Facility: [facility] Start: 11-17-2024 End: 11-17-2024 ambulatory [facility] Work Phone: Start: 11-17-2024 End: 11-17-2024 Patient encounter procedure [facility] Work Phone: Start: 11-07-2024 Non-patient / Non-visit [facility] Professional [employer] Work Phone: Start: 09-13-2024 End: 09-14-2024 ambulatory Yolanda L. Khari Facility:[facility] Start: 09-05-2024 End: 09-05-2024 ambulatory Yolanda L. Khari Facility: [facility] Start: 08-26-2024 End: 08-26-2024 ambulatory Yolanda L. Khari Facility: [facility] Start: 08-25-2024 End: 08-25-2024 ambulatory [facility] Work Phone: Start: 08-25-2024 End: 08-25-2024 Patient encounter procedure [facility] Physician [facility] Work Phone: Start: 08-23-2024 Non-patient / Non-visit [facility] Physician [facility] Work Phone: Start: 06-07-2024 End: 06-07-2024 ambulatory Yolanda Lucia Facility:[facility] Start: 03-10-2024 ambulatory Yolanda Lucia Facilit y:[facility] Start: 03-07-2024 End: 03-07-2024 ambulatory [facility] Work Phone: Start: 03-07-2024 End: 03-07-2024 Patient encounter procedure [facility] Physician [facility] Work Phone: Start: 02-15-2024 End: 02-15-2024 Patient encounter procedure [facility] Physician [facility] Work Phone: Start: 02-15-2024 End: 02-15-2024 ambulatory Yolanda Lucia [facility] Work Phone: Start: 02-11-2024 Non-patient / Non-visit [facility] Physician [facility] Work Phone: Start: 01-12-2024 End: 01-12-2024 ambulatory Yolanda Lucia Facility:[facility] Start: 09-29-2023 End: 09-29-2023 ambulatory [facility] Work Phone: Start: 09-29-2023 End: 09-29-2023 Patient encounter procedure [facility] Physician [facility] Work Phone: Start: 09-28-2023 Non-patient / Non-visit [facility] Physician [facility] Work Phone: Start: 05-26-2023 End: 05-26-2023 ambulatory Sohail Carito Other [facility] [employer] Other Start: 05-26-2023 Office outpatient vi sit 25 minutes Sohail Carito [facility] Start: 05-14-2023 End: 05-14-2023 ambulatory Sohail Carito Other [facility] Other Start: 05-14-2023 Telephone encounter Sohail Carito [facility] Start: 11-27-2022 End: 11-27-2022 ambulatory Sohail Carito Other [facility] Other Start: 11-27-2022 Office outpatient vi sit 25 minutes Sohail Carito [facility] Start: 11-21-2022 End: 11-22-2022 ambulatory SOHAIL CARITO Facility:[facility] Start: 05-08-2022 End: 05-08-2022 ambulatory Sohail Carito Other [facility] Other Start: 05-08-2022 Office outpatient vi sit 25 minutes Sohail Carito [facility] Start: 04-29-2022 End: 04-30-2022 ambulatory SOHAIL CARITO Facility:[facility] Start: 01-14-2022 End: 01-14-2022 ambulatory Kamal Chaban Other [facility] Other Start: 01-14-2022 Office outpatient vi sit 15 minutes Kamal Chaban [facility] Start: 10-10-2021 End: 10-10-2021 ambulatory Sohail Carito Other [facility] Other Start: 10-10-2021 Office outpatient vi sit 25 minutes Sohail Carito [facility] Start: 06-05-2021 End: 06-05-2021 ambulatory Carissa Alejandro Other [facility] Other Start: 06-05-2021 Telephone encounter Carissa Alejandro [facility] Start: 03-28-2021 Office outpatient ne w 45 minutes Kamal Chaban [facility] Plan of Treatment Date Care Activity Detail Author Renal function 1999 panel - Serum or Plasma [facility] enter Renal function 1999 panel - Serum or Plasma [facility] enter Renal function 1999 panel - Serum or Plasma [facility] enter Renal function 1999 panel - Serum or Plasma [facility] enter [facility] Immunizations Immunization Date Immunization Notes Care Provider Fa shiv 02-11-2017 Supartz Kamal Chaban Other [facility] Other 02-04-2017 Supartz Kamal Chaban Other [facility] Other 01-28-2017 Supartz Kamal Chaban Other [facility] Other 01-21-2017 Supartz Kamal Chaban Other [facility] Other 01-07-2017 SUPARTZ FX SODIUM HYALURONATE Kamal Chaban Other [facility] Other 08-05-2016 Kenalog -40 mg Kamal Chaban Other [facility] Other Payers Date Payer Category Payer Unknown [id number] 2.16.84 [id number] 1965 Unknown [id number] 2.16.84 [id number] 1965 Unknown [id number] 2.16.84 [id number] 1965 Unknown [id number] 2.16.8 [id number] 1965 Unknown [id number] 2.16.8 [id number] 1965 Unknown [id number] 2.16.8 [id number] 1965 Unknown [id number] 2.16.8 [id number] 1965 Unknown [id number] 2.16.8 [id number] 1965 Unknown [id number] 2.16.8 [id number] 1965 Unknown [id number] 2.16.8 [id number] 1965 Unknown [id number] 2.16.8 [id number] 1965 Unknown [id number] 2.16.8 [id number] 1965 Unknown [id number] 2.16.8 [id number] 1965 Unknown [id number] 2.16.8 [id number] 1961 Medicare [id number] 2. [id number] Medicaid [id number] [facility] [id number] Medicare Medicare [id number] Self-pay Self Pay [id number] Social History Date Type Detail Facility Sex Assigned At [facility] Other Start: 09-29-2023 End: 07-12-2024 Tobacco smoking status NHIS Ex-smoker (finding) [facility] Start: 1965 Sex Assigned At Female F [facility] Start: 08-25-2024 End: 11-17-2024 Sex Female (finding) [facility] Clinical Notes 03-28-2021 to 03-05-2025 Note Date & Type Note Facility 03-05-2025 Note Patient Education Cardiovascular Hypertension, Adult High [...] 12 oz bottle (more content not included)... [facility] 12-04-2024 Note Patient Education Cardiovascular Hypertension, Adult High [...] 12 oz bottle (more content not included)... [facility] 09-04-2024 Note Patient Education Cardiovascular Hypertension, Adult High [...] 12 oz bottle (more content not included)... [facility] 08-26-2024 Note Patient Education ENT Cough, Adult Coughing is a reflex that clears your throat and airways (respiratory system). It helps heal and protect your lungs. It is normal to cough from time to time. A cough that happens with other symptoms or that lasts a long time may be a sign of a condition that needs treatment. A short-term (acute) cough may only last 2?3 weeks. A long-term (chronic) cough may last 8 or more weeks. Coughing is often caused by: ??? Diseases, such as: ? An infection of the respiratory system. ? Asthma or other heart or lung diseases. ? Gastroesophageal reflux. This is when acid comes back up from the stomach. ??? Breathing in things that irritate your lungs. ??? Allergies. ??? Postnasal drip. This is when mucus runs down the back of your throat. ??? Smoking. ??? Some medicines. Follow these instructions at home: Medicines ??? Take [id number] and prescription medicines only as told by your health care provider. ??? Talk with your provider before you take cough medicine (cough suppressants). Eating and drinking ??? Do not drink alcohol. ??? Avoid caffeine. ??? Drink enough fluid to keep your pee (urine) pale yellow. Lifestyle ??? Avoid cigarette smoke. ??? Do not use any products that contain nicotine or tobacco. These products include cigarettes, chewing tobacco, and vaping devices, such as e-cigarettes. If you need help quitting, ask your provider. ??? Avoid things that make you cough. These may include perfumes, candles, cleaning products, or campfire smoke. General instructions ??? Watch for any changes to your cough. Tell your provider about them. ??? Always cover your mouth when you cough. ??? If the air is dry in your bedroom or home, use a cool mist vaporizer or humidifier. ??? If your cough is worse at night, try to sleep in a semi-upright position. ??? Rest as needed. Contact a health care provider if: ??? You have new symptoms, or your symptoms get worse. ??? You cough up pus. ??? You have a fever that does not go away or a cough that does not get better after 2?3 weeks. ??? You cannot control your cough with medicine, and you are losing sleep. ??? You have pain that gets worse or is not helped with medicine. ??? You lose weight for no clear reason. ??? You have night sweats. Get help right away if: ??? You cough up blood. ??? You have trouble breathing. ??? Your heart is beating very fast. These symptoms may be an emergency. Get help right away. Call 911. ??? Do not wait to see if the symptoms will go away. ??? Do not drive yourself to the hospital. This information is not intended to replace advice given to you by your health care provider. Make sure you discuss any questions you have with your health care provider. Document Revised: 02/13/2023 Document Reviewed: 02/13/2023 [employer] Patient Education ? 2023 [employer] Infectious Disease Stye A stye, also known as a hordeolum, is a bump that forms on an eyelid. It may look like a pimple next to the eyelash. A stye can form inside the eyelid (internal stye) or outside the eyelid (external stye). A stye can cause redness, swelling, and pain on the eyelid. Styes are very common. Anyone can get them at any age. They usually occur in just one eye at a time, but you may have more than one in either eye. What are the causes? A stye is caused by an infection. The infection is almost always caused by bacteria called Staphylococcus aureus. This is a common type of bacteria that lives on the skin. An internal stye may result from an infected oil-producing gland inside the eyelid. An external stye may be caused by an infection at the base of the eyelash (hair follicle). What increases the risk? You are more likely to develop a stye if: ??? You have had a stye before. ??? You have any of these conditions: ? Red, itchy, inflamed eyelids (blepharitis). ? A skin condition such as seborrheic dermatitis or rosacea. ? High fat levels in your blood (lipids). ? Dry eyes. What are the signs or symptoms? The most common symptom of a stye is eyelid pain. Internal styes are more painful than external styes. Other symptoms may include: ??? Painful swelling of your eyelid. ??? A scratchy feeling in your eye. ??? Tearing and redness of your eye. ??? A pimple-like bump on the edge of the eyelid. ??? Pus draining from the stye. How is this diagnosed? Your health care provider may be able to diagnose a stye just by examining your eye. The health care provider may also check to make sure: ??? You do not have a fever or other signs of a more serious infection. ??? The infection has not spread to other parts of your eye or areas around your eye. How is this treated? Most styes will clear up in a few days without treatment or with warm compresses applied to the area. You may need to use antibiotic drops or ointment to treat an infection (more content not included)... [facility] 08-25-2024 Evaluation note Diagnosis Onset Date Resolution CKD (chronic kidney disease) stage 4, GFR 15-29 ml/min acute August 25, 2024 1:26pm Gout acute August 25, 2024 1:26pm Hypertensive chronic kidney disease with stage 1 through stage 4 chronic ki acute Febru vic2024 1:26pm Hypomagnesemia acute July 312024 1:26pm Secondary hyperparathyroidism acute July 1:26pm Vitamin D deficiency acute Febr uary 2024 1:26pm [facility] Work Phone: [phone]) 279-524312-10-2024 NotePatient Education Cardiovascular Hypertension, Adult High blood pressure [...] are some conditions that result in high bloodpressure. What increases the risk? Certain factors may make you more likely to develop high blood pressure. Some of these risk factorsare under your control, including: ??? Smoking. ??? [...] on the floor. The cuff of the bloodpressure monitor will be placed directly against the [...] hypertension should eat less than 1,500 mg ofsodium a day. ??? Do not drink alcohol [...] one 12 oz bottle (more content not included)...[facility]07-14-2024 NotePatient Education Cardiovascular Hypertension, Adult High blood pressure [...] are some conditions that result in high bloodpressure. What increases the risk? Certain factors may make you more likely to develop high blood pressure. Some of these risk factorsare under your control, including: ? Smoking. ? [...] on the floor. The cuff of the bloodpressure monitor will be placed directly against the [...] of wine (148 mL), (more content not included)...[facility]11-28-2023 Evaluation note* Encounter Date Diagnosis Assessment Notes Treatment Notes Treatment Clinical Notes Apr, Hypertensive chronic kidney disease with stage 1 through stage 4 chronic kidney disease, or unspecified chronic kidney disease (ICD-10 - I12.9) Blood pressure is controlled. Continue current medications. I have advised her to call office if her blood pressure runs above 140 over 90 mmHg Apr, Chronic kidney disea se, stage 4 [...] Rybelsus, Wegovy or Mounjaro for weight loss. Apr, Vitamin D deficiency (ICD-10 - E55.9) Calcium is within normal limit. Continue oral Vit D Apr, Secondary hyperparathyroidism (ICD-10 - N25.81) Calcium within normal limit. Will check PTH and phosphorus Apr, Gout attack (ICD-10 - M10.9) Uric acid is above the goal but she denies any recent gout flare. Continue allopurinol to 300 mg daily. [facility] 06-01-2023 Evaluation note* Encounter Date Diagnosis [...] flare. Continue allopurinol to 300 mg daily. [facility] 11-10-2022 Evaluation note* Encounter Date Diagnosis [...] flare. Continue allopurinol to 300 mg daily. [facility] 07-19-2022 Evaluation note* Encounter Date Diagnosis Assessment Notes Treatment Notes Treatment Clinical Notes Dec, Chronic obstructive pulmonary disease, unspecified COPD type (ICD-10 - J44.9) Dec, Abnormal chest xray (ICD-10 - R93.89) Dec, Tobacco use disorder (ICD-10 - F17.200) [facility] 04-14-2022 Evaluation note* Encounter Date Diagnosis [...] flare. Continue allopurinol to 300 mg daily. [facility] 09-30-2021 Evaluation note* Encounter Date Diagnosis Assessment Notes Treatment Notes Treatment Clinical Notes Feb, Chronic obstructive pulmonary disease, unspecified COPD type (ICD-10 - J44.9) Feb, Abnormal chest xray (ICD-10 - R93.89) Feb, Personal history of tobacco use (ICD-10 - Z87.891) Feb, Anxiety (ICD-10 - F41.9) [facility] Other Evaluation noteNo InformationN[facility] [place] Other Evaluation note* Diagnosis Onset Date Resolution Status CKD (chronic kidney disease) stage 4, GFR 15-29 ml/min acute Gout acute [id number] acute Secondary hyperparathyroidism acute Vitamin D deficiency acute [facility] Work Phone: Evaluation note* Diagnosis Onset Date Resolution Status CKD (chronic kidney disease) stage 4, GFR 15-29 ml/min acute Gout acute [id number] acute Hypomagnesemia acute Secondary hyperparathyroidism acute Vitamin D deficiency acute [facility] Work Phone: Evaluation note* Diagnosis Onset Date Resolution Status CKD (chronic kidney disease) stage 4, GFR 15-29 ml/min acute Gout acute [id number] acute Hypomagnesemia acute Secondary hyperparathyroidism acute Vitamin D deficiency acute Asthma with COPD acute Nicotine dependence, cigarettes, uncomplicated acute [facility] Work Phone: Evaluation note* Diagnosis Onset Date Resolution Status Admit Date CKD (chronic kidney disease) stage 4, GFR 15-29 ml/min acute November 17 1:19pm Gout acute November 17, 2024 1:19pm Hypertensive chronic kidney disease with stage 1 through stage 4 chronic ki acute November 17, 2024 1 :19pm Hypomagnesemia acute November 17, 2024 1:19pm Secondary hyperparathyroidism acute November 17, 2024 1:19pm Vitamin D deficiency acute November 17, 2024 1:19pm [facility] Work Phone: History general Narrative - Reported* [...] WK, AND TRANSFERRED TO SKILLED CARE 04/2020 [facility] Other History general Narrative - Reported* Type [...] WK, AND TRANSFERRED TO SKILLED CARE 04/2020 [facility] Other History general Narrative - Reported* Type [...] WK, AND TRANSFERRED TO SKILLED CARE 04/2020 [facility] Other Summary Purpose Family History No Family [...] Advance Directives No May 07, 2018 3:34pm Advance Directive Response Recorded Date/ Time Advance Directives No July 12, 2024 1:25pm Advance Directive Response Recorded Date/ Time Advance Directives No July 12, 2024 2:25pm Chief Complaint and Reason for Visit Chief Complaint RENAL 4 month follow up Reason for Visit CKD (chronic kidney disease) stage 4, GFR 15-29 ml/min Gout [id number] Secondary hyperparathyroidism Vitamin D deficiency Chief Complaint RENAL 4 MONTH F/U Reason for Visit CKD (chronic kidney disease) stage 4, GFR 15-29 ml/min Gout [id number] Hypomagnesemia Secondary hyperparathyroidism Vitamin D deficiency Chief Complaint RENAL 4 MONTH F/U AKIRA: 1 yr f/u COPD Reason for Visit CKD (chronic kidney disease) stage 4, GFR 15-29 ml/min Gout [id number] Hypomagnesemia Secondary hyperparathyroidism Vitamin D deficiency Asthma with COPD Nicotine dependence, cigarettes, uncomplicated Chief Complaint Admit Date renal 4month f/u August 25, 2024 1:26pm Reason for Visit Admit Date CKD (chronic kidney disease) stage 4, GF R 15-29 ml/min August 25, 2024 1:26pm Gout August 25, 2024 1:26pm Hypertensive chronic kidney disease with stage 1 through stage 4 chronic ki August 25, 2024 1:26pm Hypomagnesemia August 25, 2024 1:26pm Secondary hyperparathyroidism July [id number] 1:26pm Vitamin D deficiency August 25, 2024 1:26pm Chief Complaint Admit Date renal 3 month f/u November 17, 2024 1:19p m Reason for Visit Admit Date CKD (chronic kidney disease) stage 4, GF R 15-29 ml/min November 17, 2024 1:19pm Gout November 17, 2024 1:19p m Hypertensive chronic kidney disease with stage 1 through stage 4 chronic ki November 17, 2024 1:19pm Hypomagnesemia November 17, 2024 1:19p m Secondary hyperparathyroidism November 17, 2024 1:19pm Vitamin D deficiency November 17, 2024 1:19 pm Additional Source Comments INFORMATION SOURCE (unrecogn ized section and content) DATE CREATED AUTHOR 05/09/2021 [facility] DATE CREATED AUTHOR AUTHOR'S MEHREEN MENDEZ 12/05/2022 [facility] DATE CREATED AUTHOR AUTHOR'S ORGANIZ ATION 09/07/2024 [facility] DATE CREATED AUTHOR AUTHOR'S ORGANIZ ATION 12/06/2024 [facility] DATE CREATED AUTHOR AUTHOR'S ORGANIZ ATION 03/09/2025 [facility] REASON FOR VISIT (unrecogniz ed section and [...] End: March 07, 2024 Carissa Allen APRN [facility] Attending Provider Active Start: March 07, 2024 End: March 07, 2024 Team Status: Active Member Role Status Dates Yon Peterson MD Primary Care Provider Active Start: August 23, 2024 Sohail Murphy MD Attending Provider Active Start : August 23, 2024 Team Status: Inactive Member Role Status Dates Yon Peterson MD Primary Care Provider Active Start: August 25, 2024 End: August 25, 2024 Sohail Murphy MD Attending Provider Active Start : August 25, 2024 End: August 25, 2024 Team Status: Active Member Role Status Dates Yon Petesron MD Primary Care Provider Active Start: November 07, 2024 Sohail Murphy MD Attending Provider Active Start : November 07, 2024 Team Status: Inactive Member Role Status Dates Yon Peterson MD Primary Care Provider Active Start: November 17, 2024 End: November 17, 2024 Sohail Murphy MD Attending Provider Active Start : November 17, 2024 End: November 17, 2024 Goals (unrecognized section and content) Goals [...] BE BASED ON THE PRIMARY CLINICAL RECORDS. [employer] provides no warranty or guarantee of the accuracy or completeness of information in this document.
[2025-03-17 13:24] LABS: Protein Creatinine Ratio Urine 0.17; Total Protein Urine Random 26.0 mg/dL (<=11.9)
[2025-03-17 13:31] LABS: Albumin Level 3.7 g/dL (3.4-5.0); Anion Gap 14.6; Blood Urea Nitrogen 35.0 mg/dL (7.0-18.0); Calcium 9.0 mg/dL (8.5-10.1); Carbon Dioxide 24.7 mmol/L (21.0-32.0); Chloride 105 mmol/L (98-107); Estimated GFR (African America 28 (>=60 mL/min/1.73m^2); Estimated GFR (Non-African Ame 23 (>=60 mL/min/1.73m^2); Glucose 114 mg/dL (74-106); Magnesium 2.0 mg/dL (1.8-2.4); Potassium 4.3 mmol/L (3.5-5.1); Sodium 140 mmol/L (136-145); Uric Acid 6.2 mg/dL (2.6-6.0)
[2025-03-17 13:33] LABS: Hematocrit 39.9 % (36.0-48.0); Hemoglobin 13.4 g/dL (12.0-16.0); Mean Corpuscular HGB Conc 33.6 g/dL (29.9-35.2); Mean Corpuscular Hemoglobin 32.6 pg (26.7-34.0); Mean Corpuscular Volume 97.1 fL (81.0-99.0); Platelet Count 261 10^3/uL (150-450); Red Blood Count 4.11 10^6/uL (4.20-5.40); White Blood Count 6.8 10^3/uL (4.0-11.0)
[2025-03-17 13:34] LABS: Glucose Urine UA NEGATIVE (NEGATIVE)
[2025-03-17 14:30] LABS: Cast Seen? NONE SEEN #/LPF (NONE SEEN); Crystals Seen? None Seen #/HPF (None Seen)
== END 2025-03-17 12:11 | disposition home or self-care (01) ==
LOC: LAB 12:15
PROVIDERS: Visit Provider Internal Medicine
DX: E83.42 Hypomagnesemia (principal); M10.9 Gout, unspecified; N25.81 Secondary hyperparathyroidism of renal origin; I12.9 Hypertensive chronic kidney disease with stage 1 through stage 4 chronic kidney disease, or unspecified chronic kidney disease; N18.4 Chronic kidney disease, stage 4 (severe)
CPT/HCPCS: 36415; 80069; 81001; 82306; 82570; 83735; 83970; 84156; 84550; 85027